=== PATIENT | male | born 1960 | race Caucasian/White ===

== ENCOUNTER 2022-11-15 13:51 | Inpatient (IN) | payer MEDICAID, SELFPAY ==
[2022-11-15 13:59] VITALS: BP 125/107; PULSE 106; RESP 18; TEMP 36.6; O2SAT 94; BMI 23.8
--- NOTE | 2022-11-15 14:07 | W.ED.PSYCHS ---
Documented by User: TRELL Girard 11/15/22 16:41 HPI - Psych General: Chief Complaint: Psychiatric Symptoms Stated Complaint: MHE eval Time Seen by Provider: 11/15/22 13:53 Source: patient Mode of arrival: other (police) Limitations: no limitations and other (intoxicated) History of Present Illness: Patient is a 62-year-old male who presents to ED today via chief data officer with a signed affidavit for evaluation of suicidal ideations. According to affidavit the [place] Police [employer] was dispatched to his residence on a complaint that a male subject was breaking things with a baseball bat and was suicidal. According to affidavit patient told the officer that he wanted to and wanted to kill himself and then asked to the officer if he would kill the patient if he hit him with a baseball bat. The patient then proceeded to hit the doorway with a bat several times in attempts to make the officer use lethal force. Patient upon arrival is clearly intoxicated. Patient states he has suffered from migraine headaches my entire life and states he has been on countless different medications all of which do not work for his headaches. He states he is tired of dealing with the pain and states either you give me pain meds for my headache or you can kill me-you can choose . complaint: suicidal ideation and feels depressed Duration: constant Relieving factors: none Exacerbating factors: alcohol Context: significant life stressor Associated psychiatric symptoms: depression and suicidal ideation Associated symptoms: Reports depression and suicidal ideation Treatments prior to arrival: other (affidavit) If self harm: admits thoughts of self harm Review of Systems Const: Denies: fever(s) or chills Card: Denies: chest pain, palpitations, lightheadedness or syncope Resp: Denies: dyspnea GI: Denies: abdominal pain, nausea, vomiting or diarrhea Skin/Breast: Denies: rash Neuro: Reports: headache(s); Denies: numbness in extremities, weakness in extremities, sensory changes or dizziness Psych: Reports: depression and suicidal ideation Physical Exam Const: COMMON NORMALS: no acute distress, patient oriented x3, alert and well nourished GENERAL APPEARANCE: cooperative and odor of alcohol detected ORIENTATION/CONSCIOUSNESS: Yes awake, Yes oriented to person, Yes oriented to place and Yes oriented to time HENMT: COMMON NORMALS: normocephalic and atraumatic HEAD & SCALP: normal to inspection, normocephalic and atraumatic Resp: COMMON NORMALS: normal respiratory effort and clear to auscultation bilaterally AUSCULTATION: clear to auscultation bilaterally Cardio: COMMON NORMALS: regular rhythm RATE: tachycardic RHYTHM: regular rhythm Neuro: JANY COMA SCALE: document GCS findings [place] coma scale eye opening: Spontaneous Jany coma scale verbal response: Orientated Jany coma scale motor response: Obey commands Jany coma scale total score: 15 COMMON NORMALS: patient oriented x3 SENSORIUM/ORIENTATION: Yes alert, Yes oriented to person, Yes oriented to place and Yes oriented to time Psych: COMMON NORMALS: mental status grossly normal, Normal thought process present, normal affect, activity/motor behavior normal, denies hallucinations and denies homicidal ideation APPEARANCE: Yes disheveled ATTITUDE: Yes agitated ACTIVITY/MOTOR BEHAVIOR: Yes appropriate eye contact and No psychomotor agitation SPEECH: Yes loud MOOD & AFFECT: Yes irritable THOUGHT PROCESS: Normal thought process present THOUGHT CONTENT: Yes Normal thought content present ATTENTION/CONCENTRATION: Yes attention grossly intact and Yes concentration grossly intact MEMORY/COGNITION: Yes memory grossly intact and Yes cognition grossly intact INSIGHT: Good insight present (Psych) JUDGEMENT: Good judgement present (Psych) Skin: COMMON NORMALS: no rashes or lesions noted GENERAL SKIN EXAM: no rashes or lesions noted Course ED course: Dr. Drummond will sign 96 hour hold based on chief data officer's affidavit. Vital Signs: Vital signs: Vital Signs Temperature 97.8 F 11/20/22 13:26 Pulse Rate 77 11/20/22 13:26 Respiratory Rate 16 11/21/22 11:32 Blood Pressure 117/78 11/20/22 13:26 Pulse Oximetry 99 11/20/22 13:26 Oxygen Delivery Me thod 11/19/22 13:56 MDM - Psych Medical Decision Making Care transferred to Dr. Drummond. Patient is on a 96-hour hold. We currently do not have any NPU beds. Lab Data 11/15/22 14:15 11/15/22 14:[address] 11/15/22 17:20 IMPRESSION: No acute intracranial abnormality. Laboratory Results WBC 8.7 10^3/uL (4.0-10.0) 11/15/22 14:15 RBC 5.34 10^6/uL (4.1-5.3) H 11/15/22 14:15 Hgb 16.1 g/dL (11.7-16.6) 11/15/22 14:15 Hct 47.6 % (42.0-52.0) 11/15/22 14:15 MCV 89.1 fl (80-94) 11/15/22 14:15 MCH 30.1 pg (28.0-34.0) 11/15/22 14:15 MCHC 33.8 g/dL (30.0-36.0) 11/15/22 14:15 RDW 13.1 % (12.1-15.1) 11/15/22 14:15 Plt Count 278 10^3/cmm (130-400) 11/15/22 14:15 MPV 10.2 fL (7.4-10.4) 11/15/22 14:15 Neut % (Auto) 57.5 % 11/15/22 14:15 Lymph % (Auto) 32.7 % 11/15/22 14:15 [place] % (Auto) 7.1 % 11/15/22 14:15 Eos % (Auto) 1.7 % 11/15/22 14:15 Baso % (Auto) 0.8 % 11/15/22 14:15 Neut # (Auto) 4.98 10^3/uL (1.8-7.7) 11/15/22 14:15 Lymph # (Auto) 2.8 10^3/uL (0.8-4.8) 11/15/22 14:15 [place] # (Auto) 0.6 10^3/uL (0.2-0.9) 11/15/22 14:15 Eos # (Auto) 0.2 10^3/uL (0.0-0.8) 11/15/22 14:15 Baso # (Auto) 0.1 10^3/uL (0.0-0.1) 11/15/22 14:15 Nucleated RBC % (auto) 0 % 11/15/22 14:15 Nucleated RBCs # 0.0 /100WBC 11/15/22 14:15 Sodium 137 mmol/L (136-145) 11/15/22 14:15 Potassium 3.5 mmol/L (3.5-5.1) 11/15/22 14:15 Chloride 101 mmol/L (98-107) 11/15/22 14:15 Carbon Dioxide 22 mmol/L (22-29) 11/15/22 14:15 Anion Gap 17.5 (5-19) 11/15/22 14:15 BUN 10 mg/dL (8-23) 11/15/22 14:15 Creatinine 0.6 mg/dL (0.7-1.2) L 11/15/22 14:15 GFR Calculation 137.4 mL/min (90-130) H 11/15/22 14:15 Glucose 124 mg/dL (65-115) H 11/15/22 14:15 Calculated Osmolality 284 mOsm/kg (285-295) L 11/15/22 14:15 Calcium 9.1 mg/dL (8.5-10.5) 11/15/22 14:15 Total Bilirubin 0.2 mg/dL (0.15-1.2) 11/15/22 14:15 AST 16 U/L (0-40) 11/15/22 14:15 ALT 15 U/L (0-41) 11/15/22 14:15 Alkaline Phosphatase 80 U/L (40-130) 11/15/22 14:15 Total Protein 7.3 g/dL (6.6-8.7) 11/15/22 14:15 Albumin 4.4 g/dL (3.5-5.2) 11/15/22 14:15 Globulin 2.9 g/dL (1.3-4.6) 11/15/22 14:15 Salicylates 1.7 mg/dL (3-10) L 11/15/22 14:15 Urine Opiates Screen Negative ng/mL (Negative) 11/15/22 14:50 Acetaminophen < 5.0 ug/mL (10-30) L 11/15/22 14:15 Ur Barbiturates Screen Negative ng/mL (Negative) 11/15/22 14:50 Ur Phencyclidine Scrn Negative ng/mL (Negative) 11/15/22 14:50 Ur Amphetamines Screen Positive ng/mL (Negative) H 11/15/22 14:50 U Benzodiazepines Scrn Negative ng/mL (Negative) 11/15/22 14:50 Urine Cocaine Screen Negative ng/mL (Negative) 11/15/22 14:50 U Marijuana (THC) Screen Positive ng/mL (Negative) H 11/15/22 14:50 Ethyl Alcohol 99 mg/dL (0-10) H 11/15/22 14:15 Discharge Plan Discharge Patient Disposition: Admitted As Inpatient Admit Provider: Jimmy Lee Clinical Impression: Acute psychosis, Suicidal ideation, Polysubstance abuse Condition: Stable Discharge Diet: Advance as tolerated Discharge Activity: Resume usual activity Sign Out Sign Out Data: Patient Sign Out occurred on 11/15/22 at 17:08. Patient's care was discussed, and care was transferred from to Jm Drummond MD. Coding Level of Care Code ED Director Sales for Chg Fwd Documented by User: Jm Drummond MD 11/27/22 01:58 HPI - Psych General: Chief Complaint: Psychiatric Symptoms Stated Complaint: MHE eval Time Seen by Provider: 11/15/22 13:53 Physical Exam Neuro: JANY COMA SCALE: document GCS findings Jany coma scale total score: 15 Course Vital Signs: Vital signs: Vital Signs Temperature 97.8 F 11/20/22 13:26 Pulse Rate 77 11/20/22 13:26 Respiratory Rate 16 11/21/22 11:32 Blood Pressure 117/78 11/20/22 13:26 Pulse Oximetry 99 11/20/22 13:26 Oxygen Delivery Me thod 11/19/22 13:56 MDM - Psych Medical Decision Making Care transferred to Dr. Drummond. Patient is on a 96-hour hold. We currently do not have any NPU beds. I discussed this case with TRELL Girard. I personally saw and evaluate the patient and agree with documentation. I reviewed documentation, labs. Patient requires inpatient admission for psychiatric assessment, stabilization, treatment. Jm Drummond MD Emergency Medicine Lab Data 11/15/22 14:15 11/15/22 14:[address] 11/15/22 17:20 IMPRESSION: No acute intracranial abnormality. Laboratory Results WBC 8.7 10^3/uL (4.0-10.0) 11/15/22 14:15 RBC 5.34 10^6/uL (4.1-5.3) H 11/15/22 14:15 Hgb 16.1 g/dL (11.7-16.6) 11/15/22 14:15 Hct 47.6 % (42.0-52.0) 11/15/22 14:15 MCV 89.1 fl (80-94) 11/15/22 14:15 MCH 30.1 pg (28.0-34.0) 11/15/22 14:15 MCHC 33.8 g/dL (30.0-36.0) 11/15/22 14:15 RDW 13.1 % (12.1-15.1) 11/15/22 14:15 Plt Count 278 10^3/cmm (130-400) 11/15/22 14:15 MPV 10.2 fL (7.4-10.4) 11/15/22 14:15 Neut % (Auto) 57.5 % 11/15/22 14:15 Lymph % (Auto) 32.7 % 11/15/22 14:15 [place] % (Auto) 7.1 % 11/15/22 14:15 Eos % (Auto) 1.7 % 11/15/22 14:15 Baso % (Auto) 0.8 % 11/15/22 14:15 Neut # (Auto) 4.98 10^3/uL (1.8-7.7) 11/15/22 14:15 Lymph # (Auto) 2.8 10^3/uL (0.8-4.8) 11/15/22 14:15 [place] # (Auto) 0.6 10^3/uL (0.2-0.9) 11/15/22 14:15 Eos # (Auto) 0.2 10^3/uL (0.0-0.8) 11/15/22 14:15 Baso # (Auto) 0.1 10^3/uL (0.0-0.1) 11/15/22 14:15 Nucleated RBC % (auto) 0 % 11/15/22 14:15 Nucleated RBCs # 0.0 /100WBC 11/15/22 14:15 Sodium 137 mmol/L (136-145) 11/15/22 14:15 Potassium 3.5 mmol/L (3.5-5.1) 11/15/22 14:15 Chloride 101 mmol/L (98-107) 11/15/22 14:15 Carbon Dioxide 22 mmol/L (22-29) 11/15/22 14:15 Anion Gap 17.5 (5-19) 11/15/22 14:15 BUN 10 mg/dL (8-23) 11/15/22 14:15 Creatinine 0.6 mg/dL (0.7-1.2) L 11/15/22 14:15 GFR Calculation 137.4 mL/min (90-130) H 11/15/22 14:15 Glucose 124 mg/dL (65-115) H 11/15/22 14:15 Calculated Osmolality 284 mOsm/kg (285-295) L 11/15/22 14:15 Calcium 9.1 mg/dL (8.5-10.5) 11/15/22 14:15 Total Bilirubin 0.2 mg/dL (0.15-1.2) 11/15/22 14:15 AST 16 U/L (0-40) 11/15/22 14:15 ALT 15 U/L (0-41) 11/15/22 14:15 Alkaline Phosphatase 80 U/L (40-130) 11/15/22 14:15 Total Protein 7.3 g/dL (6.6-8.7) 11/15/22 14:15 Albumin 4.4 g/dL (3.5-5.2) 11/15/22 14:15 Globulin 2.9 g/dL (1.3-4.6) 11/15/22 14:15 Salicylates 1.7 mg/dL (3-10) L 11/15/22 14:15 Urine Opiates Screen Negative ng/mL (Negative) 11/15/22 14:50 Acetaminophen < 5.0 ug/mL (10-30) L 11/15/22 14:15 Ur Barbiturates Screen Negative ng/mL (Negative) 11/15/22 14:50 Ur Phencyclidine Scrn Negative ng/mL (Negative) 11/15/22 14:50 Ur Amphetamines Screen Positive ng/mL (Negative) H 11/15/22 14:50 U Benzodiazepines Scrn Negative ng/mL (Negative) 11/15/22 14:50 Urine Cocaine Screen Negative ng/mL (Negative) 11/15/22 14:50 U Marijuana (THC) Screen Positive ng/mL (Negative) H 11/15/22 14:50 Ethyl Alcohol 99 mg/dL (0-10) H 11/15/22 14:15 Discharge Plan Discharge Patient Disposition: Admitted As Inpatient Admit Provider: Jimmy Lee Clinical Impression: Acute psychosis, Suicidal ideation, Polysubstance abuse Condition: Stable Discharge Diet: Advance as tolerated Discharge Activity: Resume usual activity Sign Out Sign Out Data: Patient Sign Out occurred on 11/15/22 at 17:08. Patient's care was discussed, and care was transferred from to Jm Drummond MD. Coding Level of Care Code ED Director Sales for Marisela Mclaughlin
[2022-11-15] MEDS: diphenhydrAMINE 50 mg/mL SDV 1mL IM (14:25)
[2022-11-15] MEDS: LORazepam 2 mg/mL INJ 1 mL 1 MG IM (14:25)
[2022-11-15 14:31] LABS: Basophils # 0.1 10^3/uL (0.0-0.1); Basophils % 0.8 %; Eosinophils # 0.2 10^3/uL (0.0-0.8); Eosinophils % 1.7 %; Hematocrit 47.6 % (42.0-52.0); Hemoglobin 16.1 g/dL (11.7-16.6); Lymphocytes # 2.8 10^3/uL (0.8-4.8); Lymphocytes % 32.7 %; Mean Corpuscular HGB Conc 33.8 g/dL (30.0-36.0); Mean Corpuscular Hemoglobin 30.1 pg (28.0-34.0); Mean Corpuscular Volume 89.1 fl (80-94); Mean Platelet Volume 10.2 fL (7.4-10.4); Monocytes # 0.6 10^3/uL (0.2-0.9); Monocytes % 7.1 %; Neutrophils # 4.98 10^3/uL (1.8-7.7); Neutrophils % 57.5 %; Nucleated Red Blood Cells % 0 %; Platelet Count 278 10^3/cmm (130-400); Red Blood Count 5.34 10^6/uL (4.1-5.3); Red Cell Distribution Width 13.1 % (12.1-15.1); White Blood Count 8.7 10^3/uL (4.0-10.0)
[2022-11-15 14:57] LABS: Alanine Aminotransferase 15 U/L (0-41); Albumin Level 4.4 g/dL (3.5-5.2); Alcohol Level 99 mg/dL (0-10); Alkaline Phosphatase 80 U/L (40-130); Anion Gap 17.5 (5-19); Aspartate Amino Transferase 16 U/L (0-40); Blood Urea Nitrogen 10 mg/dL (8-23); Calcium 9.1 mg/dL (8.5-10.5); Carbon Dioxide 22 mmol/L (22-29); Chloride 101 mmol/L (98-107); Globulin 2.9 g/dL (1.3-4.6); Glomerular Filtration Rate 137.4 mL/min (90-130); Glucose 124 mg/dL (65-115); Osmolality Calculated 284 mOsm/kg (285-295); Potassium 3.5 mmol/L (3.5-5.1); Salicylate 1.7 mg/dL (3-10); Sodium 137 mmol/L (136-145); Total Bilirubin 0.2 mg/dL (0.15-1.2); Total Protein 7.3 g/dL (6.6-8.7)
[2022-11-15 15:00] LABS: Acetaminophen < 5.0 ug/mL (10-30)
[2022-11-15 15:16] LABS: Amphetamines Screen Urine Positive (Negative); Barbiturates Screen Urine Negative (Negative); Benzodiazepines Screen Urine Negative (Negative); Cocaine Screen Urine Negative (Negative); Opiate Screen Urine Negative (Negative); PCP Screen Urine Negative (Negative); THC Screen Urine Positive (Negative)
--- NOTE | 2022-11-15 17:20 | CTR_ITS ---
PROCEDURE INFORMATION: Exam: CT Head Without Contrast Exam date and time: 11/15/2022 6:27 PM Age: 62 years old Clinical indication: Pain; Headache; Other: [place]; Additional info: R sided headache TECHNIQUE: Imaging protocol: Computed tomography of the head without contrast. Radiation optimization: All CT scans at this facility use at least one of these dose optimization techniques: automated exposure control; mA and/or kV adjustment per patient size (includes targeted exams where dose is matched to clinical indication); or iterative reconstruction. Other protocol: This patient has received 0 known CTs and 0 known cardiac nuclear medicine studies in the 12 months prior to the current study. COMPARISON: No relevant prior studies available. RADIATION DOSE METRICS: Total DLP (mGy-cm): 1169.48 FINDINGS: Brain: Normal. No hemorrhage. Unremarkable white matter. No mass effect. Cerebral ventricles: No ventriculomegaly. Paranasal sinuses: Visualized sinuses are unremarkable. No fluid levels. Mastoid air cells: Visualized mastoid air cells are well aerated. Bones/joints: Unremarkable. No acute fracture. Soft tissues: Unremarkable. CT/CT head wo con* 22111 IMPRESSION: No acute intracranial abnormality.
--- NOTE | 2022-11-15 18:01 | PC.NURSE ---
ATTEMPTED TO ADM IM INJECTION AND PO MEDICATION PT IS RESTING QUIETLY ON ON RIGHT SIDE WITH GOOD CHEST RISE AND FALL. WILL ATTEMPT TO GIVE MEDICATION LATER.
--- NOTE | 2022-11-15 19:04 | PC.NURSE ---
REPORT GIVEN TO RN ASSUMED CARE.
[2022-11-15 19:14] VITALS: PULSE 84; RESP 20; O2SAT 96
--- NOTE | 2022-11-15 19:26 | PC.NURSE ---
Resting with eyes closed, respirations even and nonlabored
[2022-11-15] MEDS: acetaminophen 325 mg Tablet 650 MG PO (20:25)
[2022-11-15] MEDS: ketorolac 30 mg/mL INJ IM (20:26)
--- NOTE | 2022-11-15 20:36 | PC.NURSE ---
Awake, sitting up on side of bed, meds were given for headache. Denies other needs at this time
[2022-11-15 21:28] VITALS: BP 165/93; PULSE 90; RESP 18; O2SAT 97
[2022-11-15 22:00] VITALS: BP 179/107; PULSE 96; RESP 18; TEMP 36.8; O2SAT 95
[2022-11-15 22:12] VITALS: RESP 18
[2022-11-15] MEDS: cloNIDine 0.1 mg Tablet PO (22:41)
[2022-11-16] MEDS: LORazepam 2 mg Tablet PO (04:32)
[2022-11-16] MEDS: acetaminophen 325 mg Tablet 650 MG PO ×2 (04:46→16:50)
[2022-11-16 06:00] VITALS: BP 171/107; PULSE 93; RESP 18; TEMP 37; O2SAT 96
[2022-11-16 06:27] VITALS: BP 122/91
[2022-11-16] MEDS: multivitamin therapeutic Tablet 1 TAB PO (09:41)
[2022-11-16] MEDS: thiamine 100 mg Tablet PO (09:41)
[2022-11-16] MEDS: folic acid 1 mg Tablet PO (09:41)
[2022-11-16] MEDS: ibuprofen 600 mg Tablet PO ×3 (09:48→20:57)
[2022-11-16] MEDS: nicotine 21 mg Patch 1 PATCH TRANSDERMA (09:49)
--- NOTE | 2022-11-16 13:20 | P.NPUHP_ITS ---
Providers/Chief Complaint Admitting Physician: Jimmy Lee MD Chief Complaint: MHE eval [facility] NPU History of Present Illness Amado Lawson is a 62 year old male who presented to the emergency department with the following report: General: Chief Complaint: Psychiatric Symptoms Stated Complaint: GOLDENE evluana Time Seen by Provider: 11/15/22 13:53 Source: patient Mode of arrival: other (police) Limitations: no limitations and other (intoxicated) History of Present Illness: Patient is a 62-year-old male who presents to ED today via community relations police lieutenant with a signed affidavit for evaluation of suicidal ideations. According to affidavit the [place] [employer] was dispatched to his residence on a complaint that a male subject was breaking things with a baseball bat and was suicidal. According to affidavit patient told the officer that he wanted to and wanted to kill himself and then asked to the officer if he would kill the patient if he hit him with a baseball bat. The patient then proceeded to hit the doorway with a bat several times in attempts to make the officer use lethal force. Patient upon arrival is clearly intoxicated. Patient states he has suffered from migraine headaches my entire life and states he has been on countless different medications all of which do not work for his headaches. He states he is tired of dealing with the pain and states either you give me pain meds for my headache or you can kill me-you can choose . complaint: suicidal ideation and feels depressed Duration: constant Relieving factors: none Exacerbating factors: alcohol Context: significant life stressor Associated psychiatric symptoms: depression and suicidal ideation Associated symptoms: Reports depression and suicidal ideation Treatments prior to arrival: other (affidavit) If self harm: admits thoughts of self harm He was admitted to the neuropsychiatric unit for definitive treatment of those issues. He is not currently on psychiatric medications. He presents reporting t black after begging for help with a migraine and saying that he wants to be knocked out. He has never been psychiatrically hospitalized, has been to [facility] for outpatient services, and has been on Xanax in the past. He endorses a pack of tobacco a day, alcohol daily since last July, mairjuana 10 days a month, meth once a month. He denies drug and alcohol treatment, denies DUIs, and has had 11 months on a 7 year possession charge after his got into his pocket. He endorses having been sober since 1985 until he was bitten by a brown recluse and now started drinking because of the pain. He endorses having had a migraine his whole life and that the right side of his head has never been pain-free. He reports he was begging for help and saying that he wanted them to knock him out and kill the pain now. UDS was positive for amphetamines. Psychiatric History: As above. Substance Abuse History: As above Legal History: 11 months on a 7 year possession charge. Medical History: He denies any known allergies. Bitten by a brown recluse spider in July last year. Reports migraines his entire life. Meds NPU Home Medications Medication Instructions Recorded Confirmed Last Taken Type amitriptyline 10 mg tablet 10 mg PO BEDTIME 11/15/22 11/15/22 11/14/22 History gabapentin 300 mg capsule 300 mg PO TID 11/15/22 11/15/22 11/14/22 History lisinopril 20 mg tablet 20 mg PO DAILY 11/15/22 11/15/22 11/14/22 History omeprazole 40 mg capsule,delayed 40 mg PO DAILY 11/15/22 11/15/22 11/14/22 History release Allergies Allergy/AdvReac Type Severity Reaction Status Date / Time diphenhydramine Allergy Unknown Unknown Verified 11/15/22 14:56 [From Benadryl] menthol Allergy Unknown Unknown Verified 11/15/22 14:56 Mental Status Exam MSE Comments: This is a slender, older white male, appearing older than stated age with limited grooming and adequate eye contact. No abnormal movements except for mild psychomotor retardation and some tremulousness. Cooperative with exam a nd mild distress. Thought process organized. Thought content: patient denies suicidal or homicidal ideation. Attention and concentration are intact and memory appeared reliable but none were formally tested. He is alert and oriented three times. Insight and judgment are limited. Impulse control is limited. Vitals/I&O/Wt Last Vital Signs Temp 98.4 F 11/16/22 14:00 Pulse 86 11/16/22 14:00 Resp 18 11/16/22 14:00 BP 167/107 11/16/22 14:00 Pulse Ox 96 11/16/22 14:00 O2 Del Method 11/16/22 14:00 Weight last 48 hrs Weight 68.946 kg Data NPU 11/15/22 14:15 11/15/22 14:15 A&P Assessment and plan (1) Acute psychosis: (2) Suicidal ideation: (3) Polysubstance abuse: (4) Methamphetamine use disorder, severe: Plan This is a 61 year old white male with a history of migraines and a recent report a spi bite with ongoing spider bite symptoms a long history of addiction who presents with a severe migraine reporting that he needs help for the severe pain with UDS positive for amphetamines. 1. Continue current medications 2. Encourage individual, group and milieu therapy 3. Continue q-15 minute check for safety 4. Recommend sober living treatment at the highest level of care to which the patient is willing to commit. 5. Significant concern that much of his drug use. Involuntary Hold Information 96 Hour Hold: 96 Hour Involuntary Admission: Yes 96 Hour Hold Ending Date: 11/21/22 96 Hour Hold Ending Time: 14:10 Attestations NPU Medical Necessity Statement*: Inpatient hospitalization is medically necessary and the clinically appropriate intervention at this time. We will monitor medications and make changes as indicated. Patient will be in the hospital for over two midnights. Likely length of stay is three to five days. Coding Level of Care Code Acute Code for [facility] Fwd Diagnoses Acute psychosis F23 Suicidal ideation R45.851 Polysubstance abuse F19.10 Methamphetamine use disorder, severe F15.20
[2022-11-16 14:00] VITALS: BP 167/107; PULSE 86; RESP 18; TEMP 36.9; O2SAT 96
[2022-11-16] MEDS: gabapentin 300 mg Capsule PO (20:57)
[2022-11-16 21:25] VITALS: BP 171/100
[2022-11-16] MEDS: cloNIDine 0.1 mg Tablet PO (21:25)
[2022-11-16 21:30] VITALS: BP 171/100; PULSE 90; RESP 16; TEMP 37; O2SAT 97
[2022-11-16] MEDS: amitriptyline 25 mg Tablet PO (21:58)
[2022-11-17 08:55] VITALS: BP 148/110; PULSE 94
[2022-11-17] MEDS: multivitamin therapeutic Tablet 1 TAB PO (08:56)
[2022-11-17] MEDS: lisinopril 20 mg Tablet PO (08:56)
[2022-11-17] MEDS: folic acid 1 mg Tablet PO (08:56)
[2022-11-17] MEDS: pantoprazole DR 40 mg Tablet PO (08:56)
[2022-11-17] MEDS: gabapentin 300 mg Capsule PO ×3 (08:56→20:40)
[2022-11-17] MEDS: thiamine 100 mg Tablet PO (08:56)
[2022-11-17] MEDS: nicotine 21 mg Patch 1 PATCH TRANSDERMA (08:57)
[2022-11-17] MEDS: acetaminophen 325 mg Tablet 650 MG PO (11:09)
[2022-11-17 14:00] VITALS: BP 148/93; PULSE 77; RESP 18; TEMP 36.6; O2SAT 97
--- NOTE | 2022-11-17 15:44 | P.NPUPN_ITS ---
Subjective NPU Subjective: Patient presented today reporting that he feels that he is better and that he needs to get home to take care of his . We discussed that he needs to focus on himself before he can be helpful to his . Continue to deny any desire or need for any additional medications. He also reported need for his drinking very much downplaying the role of methamphetamines in his difficulties. He agreed to work with the treatment team to make sure he had appropriate discharge plans. Mental Status Exam MSE Comments: This is a slender, older white male, appearing older than stated age with limited grooming and adequate eye contact. No abnormal movements except for mild psychomotor retardation and some tremulousness. Cooperative with exam in mild distress. Speech decreased rate and volume. Mood is described as okay, affect congruent. Thought process organized. Thought content: patient denies s uicidal or homicidal ideation. Attention and concentration are intact and memory appeared reliable but none were formally tested. He is alert and oriented three times. Insight and judgment are limited. Impulse control is limited. Vitals/I&O/Wt Last Vital Signs Temp 98 F 11/17/22 14:00 Pulse 77 11/17/22 14:00 Resp 18 11/17/22 14:00 BP 148/93 11/17/22 14:00 Pulse Ox 97 11/17/22 14:00 O2 Del Method 11/17/22 14:00 Data NPU 11/15/22 14:15 11/15/22 14:15 A&P Assessment and plan (1) Acute psychosis: (2) Suicidal ideation: (3) Polysubstance abuse: (4) Methamphetamine use disorder, severe: Plan This is a 61 year old white male with a history of migraines and a recent report a spi bite with ongoing spider bite symptoms a long history of addiction who presents with a severe migraine reporting that he needs help for the severe pain with UDS positive for amphetamines. 1. Continue current medications 2. Encourage individual, group and milieu therapy 3. Continue q-15 minute check for safety 4. Recommend sober living treatment at the highest level of care to which the patient is willing to commit. 5. Significant concern that much of this is related to his drug use. Continue [facility] protocol. Involuntary Hold Information 96 Hour Hold: 96 Hour Involuntary Admission: Yes 96 Hour Hold Ending Date: 02/14/23 96 Hour Hold Ending Time: 14:10 Attestations NPU Medical Necessity Statement*: Inpatient hospitalization is medically necessary and the clinically appropriate intervention at this time. We will monitor medications and make changes as indicated. Likely length of stay is three to five days. Coding Level of Care Code Acute Code for [facility] Fwd Diagnoses Acute psychosis F23 Suicidal ideation R45.851 Polysubstance abuse F19.10 Methamphetamine use disorder, severe F15.20
[2022-11-17] MEDS: amitriptyline 25 mg Tablet PO (20:40)
[2022-11-18] MEDS: acetaminophen 325 mg Tablet 650 MG PO ×2 (04:21→16:22)
[2022-11-18 06:00] VITALS: BP 164/107; PULSE 83; RESP 14; TEMP 36.6; O2SAT 97
[2022-11-18 06:25] VITALS: BP 164/107
[2022-11-18] MEDS: cloNIDine 0.1 mg Tablet PO (06:25)
--- NOTE | 2022-11-18 06:31 | PC.NURSE ---
PRN MED PT GIVEN 0.1 MG OF CLONIDINE FOR B/P OF 164/107, WILL CONTINUE TO MONITOR.
[2022-11-18] MEDS: multivitamin therapeutic Tablet 1 TAB PO (08:14)
[2022-11-18] MEDS: gabapentin 300 mg Capsule PO ×3 (08:14→20:08)
[2022-11-18] MEDS: lisinopril 20 mg Tablet PO (08:14)
[2022-11-18] MEDS: thiamine 100 mg Tablet PO (08:14)
[2022-11-18] MEDS: pantoprazole DR 40 mg Tablet PO (08:14)
[2022-11-18] MEDS: folic acid 1 mg Tablet PO (08:14)
[2022-11-18 08:22] VITALS: BP 162/115; PULSE 91
[2022-11-18] MEDS: LORazepam 2 mg Tablet PO (08:29)
--- NOTE | 2022-11-18 08:58 | PC.NURSE ---
PATIENT VERY ANXIOUS AND CONCERN ABOUT THE CARE OF HIS . BP- 162/115 HANDS MOIST AND SLIGHT TREMORS NOTED. C/O HEADACHE; RATES 10/10. DENIES N/V AND VERTIGO. PRN AVTIVAN GIVEN ORDERED.
[2022-11-18] MEDS: ibuprofen 600 mg Tablet PO (10:42)
[2022-11-18 14:00] VITALS: BP 127/78; PULSE 90; RESP 18; TEMP 36.4; O2SAT 96
--- NOTE | 2022-11-18 18:27 | W.PM.NPUPNS ---
Subjective NPU Subjective: Patient presented today with doing okay. He reports that his has not even called to check on him agreed that maybe she needed a break and understood that he needed to work on himself. He continued to be resistant to really identifying the impact that methamphetamine might be having and how it might even have impacted some aspects of the spider bite. We discussed the fact that Dr. Sanchez would be coming tomorrow and making decisions about discharge, likely discharge would be on Sunday or Sunday and appropriate follow-up is secured. Mental Status Exam MSE Comments: This is a slender, older white male, appearing older than stated age with limited grooming and adequate eye contact. No abnormal movements except for mild psychomotor retardation and resolving tremulousness. Cooperative with exam in mild distress. Speech normal rate and volume. Mood is described as a little better, affect congruent. Thought process organized. Thought content: patient denies suicidal or homicidal ideation. Attention and concentration are intact and memory appeared reliable but none were formally tested. He is alert and oriented three times. Insight and judgment are limited. Impulse control is limited. Vitals/I&O/Wt Last Vital Signs Temp 97.9 F 11/18/22 20:57 Pulse 85 11/18/22 20:57 Resp 18 11/18/22 20:57 BP 141/83 11/18/22 20:57 Pulse Ox 96 11/18/22 20:57 O2 Del Method 11/18/22 20:57 Weight last 48 hrs Weight 73.085 kg Weight 73.085 kg Data NPU 11/15/22 14:15 11/15/22 14:15 A&P Assessment and plan (1) Acute psychosis: (2) Suicidal ideation: (3) Polysubstance abuse: (4) Methamphetamine use disorder, severe: Plan This is a 61 year old white male with a history of migraines and a recent report a spi bite with ongoing spider bite symptoms a long history of addiction who presents with a severe migraine reporting that he needs help for the severe pain with UDS positive for amphetamines. 1. Continue current medications 2. Encourage individual, group and milieu therapy 3. Continue q-15 minute check for safety 4. Recommend sober living treatment at the highest level of care to which the patient is willing to commit. 5. Significant concern that much of this is related to his drug use. Continue CIWA protocol. Involuntary Hold Information 96 Hour Hold: 96 Hour Involuntary Admission: Yes 96 Hour Hold Ending Date: 11/21/22 96 Hour Hold Ending Time: 14:10 Attestations NPU Medical Necessity Statement*: Inpatient hospitalization is medically necessary and the clinically appropriate intervention at this time. We will monitor medications and make changes as indicated. Likely length of stay is 2-4 days. Coding Level of Care Code Acute Code for [facility] Fwd Diagnoses Acute psychosis F23 Suicidal ideation R45.851 Polysubstance abuse F19.10 Methamphetamine use disorder, severe F15.20
[2022-11-18] MEDS: hyDROXYzine 25 mg Capsule 50 MG PO (20:08)
[2022-11-18] MEDS: amitriptyline 25 mg Tablet PO (20:08)
--- NOTE | 2022-11-18 20:56 | PC.NURSE ---
PT REQUESTED MEDICATION TO ASSIST IN REDUCING ANXIETY. VISTARIL WAS GIVEN ORDERED. SEE MAR FOR DETAILS.
[2022-11-18 20:57] VITALS: BP 141/83; PULSE 85; RESP 18; TEMP 36.6; O2SAT 96
[2022-11-19 04:49] VITALS: BMI 25.2
[2022-11-19] MEDS: acetaminophen 325 mg Tablet 650 MG PO ×2 (07:00→15:28)
[2022-11-19 07:17] VITALS: BP 159/97; PULSE 80; RESP 18; TEMP 37.1; O2SAT 95
[2022-11-19] MEDS: pantoprazole DR 40 mg Tablet PO (09:15)
[2022-11-19] MEDS: thiamine 100 mg Tablet PO (09:15)
[2022-11-19] MEDS: gabapentin 300 mg Capsule PO ×3 (09:15→20:46)
[2022-11-19] MEDS: folic acid 1 mg Tablet PO (09:15)
[2022-11-19] MEDS: lisinopril 20 mg Tablet PO (09:15)
[2022-11-19] MEDS: ibuprofen 600 mg Tablet PO (09:15)
[2022-11-19] MEDS: multivitamin therapeutic Tablet 1 TAB PO (09:15)
[2022-11-19] MEDS: nicotine 21 mg Patch 1 PATCH TRANSDERMA (09:42)
[2022-11-19 13:56] VITALS: BP 175/82; PULSE 82; RESP 17; TEMP 36.6; O2SAT 99
--- NOTE | 2022-11-19 15:42 | W.PM.NPUPNS ---
Subjective NPU Subjective: Patient is a 62-year-old white male admitted with suicidal ideation with a history of polysubstance abuse including methamphetamine use and alcohol use. He reports that he is no longer feeling suicidal. He states that he had been using alcohol to manage his pain after he had been bitten by a recluse spider a few weeks ago. He reports that he does not feel that he has a problem with alcohol. He had reported no feelings of hopelessness. He states that he had suffered from migraine headaches for most of his life and states that he was not having any alcohol related withdrawal. He reports having good support from his regarding his current mental health related issues. Mental Status Exam MSE Comments: This is a slender, older white male, appearing older than stated age with adequate grooming and adequate eye contact. No abnormal movements except for mild psychomotor retardation and resolving tremulousness. Cooperative with exam in mild distress. Speech is normal rate and volume. Mood is described good. His affect was mood congruent. Thought process organized. Thought content: patient denies suicidal or homicidal ideation. Attention and concentration are intact and memory appeared reliable but none were formally tested. He is alert and oriented three times. Insight and judgment are limited. Impulse control is limited. Vitals/I&O/Wt Last Vital Signs Temp 97.9 F 11/19/22 13:56 Pulse 82 11/19/22 13:56 Resp 17 11/19/22 13:56 BP 175/82 11/19/22 13:56 Pulse Ox 99 11/19/22 13:56 O2 Del Method 11/19/22 13:56 Weight last 48 hrs Weight 73.085 kg Weight 73.085 kg Data NPU 11/15/22 14:15 11/15/22 14:15 A&P Assessment and plan (1) Acute psychosis: (2) Suicidal ideation: (3) Polysubstance abuse: (4) Methamphetamine use disorder, severe: Plan This is a 61 year old white male with a history of migraines and a recent report a spi bite with ongoing spider bite symptoms a long history of addiction who presents with a severe migraine reporting that he needs help for the severe pain with UDS positive for amphetamines. 1. Continue current medications-including Amitryptiline 25mg at night. 2. Encourage individual, group and milieu therapy 3. Continue q-15 minute check for safety 4. Recommend sober living treatment at the highest level of care to which the patient is willing to commit. 5. Discontinue CIWA protocol. Involuntary Hold Information 96 Hour Hold: 96 Hour Involuntary Admission: Yes 96 Hour Hold Ending Date: 11/21/22 96 Hour Hold Ending Time: 14:10 Attestations NPU Medical Necessity Statement*: Inpatient hospitalization is medically necessary and the clinically appropriate intervention at this time. We will monitor medications and make changes as indicated. Likely length of stay is 2-4 days. Coding Level of Care Code Acute Code for g Fwd Diagnoses Acute psychosis F23 Suicidal ideation R45.851 Polysubstance abuse F19.10 Methamphetamine use disorder, severe F15.20
[2022-11-19] MEDS: hyDROXYzine 25 mg Capsule 50 MG PO (20:46)
[2022-11-19] MEDS: amitriptyline 25 mg Tablet PO (20:46)
[2022-11-19 22:00] VITALS: BP 173/111; PULSE 86; RESP 20; TEMP 36.7; O2SAT 98
--- NOTE | 2022-11-19 23:20 | PC.NURSE ---
PRN vistaril given for anxiety per pt request.
[2022-11-20 02:03] VITALS: BP 169/105
[2022-11-20] MEDS: cloNIDine 0.1 mg Tablet PO (02:03)
[2022-11-20] MEDS: acetaminophen 325 mg Tablet 650 MG PO ×3 (02:03→17:16)
[2022-11-20] MEDS: OLANZapine 5 mg ODT PO (02:06)
--- NOTE | 2022-11-20 02:07 | PC.NURSE ---
PRN medications PRN clonidine and zyprex given for high blood pressure and anxiety.
[2022-11-20 06:00] VITALS: BP 127/83; PULSE 82; RESP 17; TEMP 36.3; O2SAT 97
[2022-11-20] MEDS: lisinopril 20 mg Tablet PO (08:27)
[2022-11-20] MEDS: multivitamin therapeutic Tablet 1 TAB PO (08:27)
[2022-11-20] MEDS: folic acid 1 mg Tablet PO (08:27)
[2022-11-20] MEDS: pantoprazole DR 40 mg Tablet PO (08:27)
[2022-11-20] MEDS: gabapentin 300 mg Capsule PO ×3 (08:27→20:10)
[2022-11-20] MEDS: thiamine 100 mg Tablet PO (08:27)
[2022-11-20 13:26] VITALS: BP 117/78; PULSE 77; RESP 17; TEMP 36.6; O2SAT 99
--- NOTE | 2022-11-20 14:37 | P.NPUPN_ITS ---
Subjective NPU Subjective: Patient is a 62-year-old white male admitted with suicidal ideation with a history of polysubstance abuse including methamphetamine use and alcohol use. The patient had continue to minimize his alcohol use and methamphetamine use. He had reported that his depression had been getting better. He minimized any suicidal thoughts at this time. He reported having periods of low energy and reported having chronic headaches and pain related issues. He did not appear to show any evidence of alcohol withdrawal symptoms according to staff. He had reported improved sleep. Staff notes patient has been compliant on the unit and redirectable. Mental Status Exam MSE Comments: This is a slender, older white male, appearing older than stated age with adequate grooming and adequate eye contact. No abnormal movements except for mild psychomotor retardation. He was cooperative with exam in no ac jose francisco distress. Speech is normal rate and volume. Mood is described all right. His affect was mood incongruent and restricted. Thought process was linear and organized. Thought content: patient denies suicidal or homicidal ideation. Attention and concentration are intact and memory appeared reliable but none were formally tested. He is alert and oriented three times. Insight and judgment are limited. Impulse control is limited. Vitals/I&O/Wt Last Vital Signs Temp 97.8 F 11/20/22 13:26 Pulse 77 11/20/22 13:26 Resp 17 11/20/22 13:26 BP 117/78 11/20/22 13:26 Pulse Ox 99 11/20/22 13:26 O2 Del Method 11/19/22 13:56 Weight last 48 hrs Weight 73.085 kg Weight 73.085 kg Data NPU 11/15/22 14:15 11/15/22 14:15 A&P Assessment and plan (1) Acute psychosis: (2) Suicidal ideation: (3) Polysubstance abuse: (4) Methamphetamine use disorder, severe: Plan This is a 61 year old white male with a history of migraines and a recent report a spi bite with ongoing spider bite symptoms a long history of addiction who presents with a severe migraine reporting that he needs help for the severe pain with UDS positive for amphetamines. 1. Increased amitriptyline to 50 mg at night to target insomnia headaches and depression. 2. Encourage individual, group and milieu therapy 3. Continue q-15 minute check for safety 4. Recommend sober living treatment at the highest level of care to which the patient is willing to commit. Involuntary Hold Information 96 Hour Hold: 96 Hour Involuntary Admission: Yes 96 Hour Hold Ending Date: 11/21/22 96 Hour Hold Ending Time: 14:10 Attestations NPU Medical Necessity Statement*: Inpatient hospitalization is medically necessary and the clinically appropriate intervention at this time. We will monitor medications and make changes as indicated. Likely length of stay is 2-4 days. Coding Level of Care Code Acute Code for [facility] Fwd Diagnoses Acute psychosis F23 Suicidal ideation R45.851 Polysubstance abuse F19.10 Methamphetamine use disorder, severe F15.20
[2022-11-20] MEDS: amitriptyline 25 mg Tablet 50 MG PO (20:10)
[2022-11-21] MEDS: acetaminophen 325 mg Tablet 650 MG PO ×2 (03:34→07:42)
[2022-11-21 06:00] VITALS: RESP 16
[2022-11-21] MEDS: thiamine 100 mg Tablet PO (08:49)
[2022-11-21] MEDS: pantoprazole DR 40 mg Tablet PO (08:49)
[2022-11-21] MEDS: lisinopril 20 mg Tablet PO (08:49)
[2022-11-21] MEDS: multivitamin therapeutic Tablet 1 TAB PO (08:49)
[2022-11-21] MEDS: gabapentin 300 mg Capsule PO (08:49)
[2022-11-21] MEDS: folic acid 1 mg Tablet PO (08:49)
[2022-11-21] MEDS: nicotine 21 mg Patch 1 PATCH TRANSDERMA (08:51)
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
[2022-11-21 11:32] VITALS: RESP 16
--- NOTE | 2022-11-21 11:43 | PC.NURSE ---
discharge instructions discussed with patient. pt states understanding and compliance. pt left ambulating to the ready ride transportation [facility].
== END 2022-11-21 11:42 | disposition home or self-care (01) | DRG 885 ==
LOC: ER 21:02 → NP 21:16
PROVIDERS: Physician Assistant; Admitting Provider Psychiatry & Neurology Psychiatry; Emergency Provider Emergency Medicine; Visit Provider Psychiatry & Neurology Psychiatry
DX: F23 Brief psychotic disorder (principal); R45.851 Suicidal ideations; F15.20 Other stimulant dependence, uncomplicated; F10.120 Alcohol abuse with intoxication, uncomplicated; F32.A Depression, unspecified; G43.709 Chronic migraine without aura, not intractable, without status migrainosus
CPT/HCPCS: 70450; 80053; 80306; 80307; 85025; 90935; 96372; 97165; 99238; 99285; J1200; J1885; J2060

== ENCOUNTER 2023-01-17 18:35 | Emergency (ER) | payer MEDICAID, SELFPAY ==
[2023-01-17 18:37] VITALS: BP 127/90; PULSE 81; RESP 16; TEMP 36.8; O2SAT 95
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
--- NOTE | 2023-01-17 19:18 | W.ED.EXTPRO ---
HPI - Extremity Problem General: Chief complaint: Extremity Injury, Upper Stated complaint: ALCOHOL INTOXICATION Time Seen by Provider: 01/17/23 18:40 Source: patient Mode of arrival: EMS History of Present Illness: This patient was transported to our emergency department by EMS. He states he was try to get cigarettes and could not get cigarettes and then started hitting a fire extinguisher and has pain in his right hand. He admits to drinking alcohol today. He states that he drank since approximately noon today. He normally lives with his . He denies any other complaints at this time. MD Complaint: extremity pain Associated symptoms: Deny chest pain, fever(s) or rash Review of Systems Const: Denies: fever(s) or chills Eyes: Denies: change in vision ENMT: Denies: throat pain or odynophagia Card: Denies: chest pain, palpitations or irregular heart rhythm Resp: Denies: dyspnea, productive cough or non-productive cough GI: Denies: abdominal pain, nausea or vomiting : Denies: flank pain or difficulty urinating Musc: Reports: extremity pain; Denies: neck pain or back pain Skin/Breast: Denies: rash Neuro: Denies: headache(s), numbness in extremities or weakness in extremities Psych: Denies: suicidal ideation or homicidal ideation Physical Exam Narrative: EXAM NARRATIVE: The patient is quite loquacious. He makes good eye contact. He answers questions in a general goal-directed fashion but clearly somewhat inebriated. Const: COMMON NORMALS: no acute distress, average body habitus, patient oriented x3 and alert HENMT: COMMON NORMALS: normocephalic and atraumatic HEAD & SCALP: normocephalic and atraumatic FACE & SINUS: normal facial exam Eye: COMMON NORMALS: Equal, round and reactive pupils present, EOMs intact bilaterally and conjunctivae normal CONJUNCTIVA: Yes conjunctivae normal PUPIL: Yes Equal, round and reactive pupils present Neck/C-Spine: COMMON NORMALS: full ROM and no lymphadenopathy Chest: COMMONS NORMALS: normal inspection of the chest Resp: COMMON NORMALS: normal respiratory effort, No use of accessory muscles and clear to auscultation bilaterally AUSCULTATION: clear to auscultation bilaterally Cardio: COMMON NORMALS: regular rate, regular rhythm and Peripheral pulses 2+ throughout RATE: regular rate RHYTHM: regular rhythm PERIPHERAL PULSES: Peripheral pulses 2+ throughout GI: COMMON NORMALS: Normal to inspection, nondistended, normoactive bowel sounds present and Soft to palpation PALPATION: Yes Soft to palpation : COMMON NORMALS: Yes no CVA tenderness BLADDER/KIDNEY EXAM: Yes no CVA tenderness Back/Pelvis: COMMON NORMALS: no CVA tenderness, thoracic and lumbar spine normal to inspection and no thoracic nor lumbar tenderness Extremity: NARRATIVE EXTREMITY EXAM: He has a normal range of motion in all extremities. His right hand is notable for tenderness over the MCP region. There is several small superficial abrasions. No deformity. No erythema. Good capillary refill and neurovascular intact. Neuro: COMMON NORMALS: patient oriented x3, moves all extremities, no focal motor deficits and no sensory deficits noted SENSORIUM/ORIENTATION: Yes alert Psych: COMMON NORMALS: mental status grossly normal Skin: COMMON NORMALS: turgor normal GENERAL SKIN EXAM: turgor normal Course Reevaluation(s): Reevaluation #1: Patient is drinking fluids well. He made considerable amount of urine output. He remains alert and cooperative and interactive. No new or otherwise focal findings on repeat evaluation. I discussed current findings no evidence of fracture of the right hand. He voiced understanding and was appreciative of care. The patient appears to be quite functional and suitable to be discharged home with family. He will be transported by [employer] transportation service. I did discuss with him regarding his alcohol use and he acknowledged our discussion. Time: 20:25 Vital Signs: Vital signs: Vital Signs Temperature 98.3 F 01/17/23 18:37 Pulse Rate 81 01/17/23 18:37 Respiratory Rate 16 01/17/23 18:37 Blood Pressure 130/81 01/17/23 20:17 Pulse Oximetry 95 01/17/23 18:37 Oxygen Delivery Me thod Room Air 01/17/23 18:37 MDM - Extremity (Nontraumatic) Medical Decision Making This patient who apparently has been drinking on a regular basis recently presents to our emergency department because of concerns about right hand swelling and pain. He apparently struck a immovable object when he could not get cigarettes from a vending machine. His evaluation revealed some superficial abrasions to his right metacarpal region. There is no deformity or other concerning clinical findings. Radiographs are reassuring that there is no evidence of fracture. He had full function in the right upper extremity to include the involved hand. His clinical examination was otherwise remarkable only for evidence of alcohol use. Patient stable, drinking fluids well, no other focal findings and competent to be discharged with transportation to his home which she shares with his spouse. Lab Data I reviewed the patient's lab results. Radiology Impressions Hand X-Ray 01/17/23 19:16 IMPRESSION: No fracture or acute osseous abnormality. Discharge Plan Discharge Patient Disposition: Home Clinical Impression: Contusion of hand, right, Alcohol use disorder Condition: Stable Prescriptions: No Action lisinopril 20 mg tablet 20 mg PO DAILY omeprazole 40 mg capsule,delayed release(DR/EC) 40 mg PO DAILY gabapentin 300 mg capsule 300 mg PO TID amitriptyline 25 mg Tablet 50 mg PO BEDTIME 30 Days Qty: 60 1RF Discharge Orders: Discharge ED (Routine); Ordered 01/17/23 Ordered By: Gerard Bennett Discharge Diet: Usual diet Discharge Activity: Increase activity as tolerated Patient Instructions: Opioid Safety, Pain Management Activity Restrictions/Additional Instructions: As we discussed she does not have any evidence of a fracture to your right hand. There is bruising about the soft tissues which will respond to continued use, ice and Tylenol as needed for any discomfort. If you have persistent or worsening pain you are welcome to return for reevaluation. Do not drink alcohol as it impairs your decision-making capacity. Coding Level of Care Code ED Small Machine Bindery Operator for Marisela Mclaughlin
[2023-01-17 20:17] VITALS: BP 130/81
--- NOTE | 2023-01-24 11:05 | DCPLANNER ---
legal practice manager called patient due to no primary care physician - no answer at this time.
== END 2023-01-17 21:59 | disposition home or self-care (01) ==
PROVIDERS: Emergency Provider Emergency Medicine
DX: S60.221A Contusion of right hand, initial encounter (principal); F10.90 Alcohol use, unspecified, uncomplicated; W22.09XA Striking against other stationary object, initial encounter
CPT/HCPCS: 73130; 99283

== ENCOUNTER 2023-06-14 15:09 | Emergency (ER) | payer MEDICAID, SELFPAY ==
[2023-06-14] VITALS (9 sets, daily range): BP systolic 126–156; BP diastolic 80–98; PULSE 82–99; RESP 18–19; TEMP 36.8; O2SAT 93–98; BMI 25.3
--- NOTE | 2023-06-14 15:15 | ECG_ITS ---
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 Measurements Intervals [place] Rate: 100 P: 61 [place]: 169 QRS: 48 QRSD: 90 T: 90 QT: 367 QTc: 474 Interpretive Statements SINUS TACH[address]IA [address] DEVIATION AND MODERATE T-WAVE ABNORMALITY, CONSIDER ANTERIOR ISCHEMIA [-0.1+ mV T-WAVE IN V3/V4] No previous ECG available for comparison Electronically Signed On 06-14-2023 21:29:54 CDT by Berkley Nicolas M.D. [email or web address].[facility] [place] [facility].[employer]/store/Om/[id number]
--- NOTE | 2023-06-14 15:15 | XR_ITS ---
WS: [id number] Portable AP upright chest, 06/14/2023 Clinical Data: chest pain Comparison: Portable chest, 06/12/2013 Findings: No nodules, masses or effusions are seen. The heart is normal. The pulmonary vascularity is not increased. No pneumonia or pneumothorax is seen. Monitor leads are on the chest wall. Impression: Negative chest.
--- NOTE | 2023-06-14 15:17 | ED_ITS ---
Documented by User: Braden Waters DO 06/15/23 06:02 HPI - Chest Pain General: Chief Complaint: Chest Pain Stated Complaint: chest pain Time Seen by Provider: 06/14/23 15:15 Source: patient Mode of arrival: EMS History of Present Illness: 63-year-old male presents emergency room with complaints of chest discomfort and left shoulder pain. He states he had sudden onset while he was walking. Pat ient admits to having done methamphetamines yesterday he has significant choreatic leg movements. He also admits to drinking alcohol use and walking all day long. He has no known history of coronary artery disease. Does have history of hypertension he is on lisinopril. MD complaint: chest pain Onset (ago): hour(s) Timing of current episode: episodic Onset: during exertion Pain location: substernal Pain radiation: left shoulder Quality: tightness and aching Relieving factors: nothing Exacerbating factors: nothing Associated symptoms: Deny abdominal pain, diaphoresis, dyspnea, fever(s), leg edema, nausea, palpitations, sense of impending doom, syncope or vomiting Review of Systems Const: Denies: fever(s), chills or diaphoresis ENMT: Denies: throat pain, ear or mastoid pain, nasal discharge or nasal conge stion Card: Reports: chest pain; Denies: palpitations or syncope Resp: Denies: dyspnea GI: Denies: abdominal pain, nausea or vomiting : Denies: flank pain, dysuria, urinary frequency or urinary urgency Skin/Breast: Denies: rash or pruritus [facility] ED PFSH: Medical History Methamphetamine use disorder, severe Physical Exam Const: GENERAL APPEARANCE: cooperative and comfortable ORIENTATION/CONSCIOUSNESS: Yes awake, Yes oriented to person, Yes oriented to place and Yes oriented to time HENMT: COMMON NORMALS: normocephalic, atraumatic and hearing grossly normal bilaterally HEAD & SCALP: normocephalic and atraumatic Resp: COMMON NORMALS: normal respiratory effort, No retractions, No use of accessory muscles and clear to auscultation bilaterally AUSCULTATION: clear to auscultation bilaterally Cardio: COMMON NORMALS: regular rate, regular rhythm and No murmurs present (Cardio) RATE: regular rate RHYTHM: regular rhythm GI: COMMON NORMALS: Soft to palpation and No hepatosplenomegaly present AUSCULTATION: Yes normoactive bowel sounds PALPATION: Yes Soft to palpation, No Tenderness to palpation present (GI), No Guarding due to palpation present (GI) and Yes No hepatosplenomegaly present Extremity: COMMON NORMALS: normal to inspection, capillary refill normal, no clubbing, cyanosis or edema, no calf tenderness and no pedal edema Neuro: SENSORIUM/ORIENTATION: Yes oriented to person, Yes oriented to place and Yes oriented to time Skin: COMMON NORMALS: no rashes or lesions noted GENERAL SKIN EXAM: no rashes or lesions noted Course Vital Signs: Vital signs: Vital Signs Temperature 98.2 F 06/14/23 15:12 Pulse Rate 85 06/14/23 19:01 Respiratory Rate 19 H 06/14/23 17:00 Blood Pressure 150/88 06/14/23 18:30 Pulse Oximetry 94 06/14/23 19:01 Oxygen Delivery Me thod Room Air 06/14/23 18:30 MDM - Chest Pain Medical Decision Making Care signed out to Dr. Gonzales at change of shift. See final notes for diagnosis and disposition. Patient presents to the ER having chest pain that started this morning. And radiated to his back and left shoulder. Patient also admits to drinking alcohol and using methamphetamine frequently. Patient denies any symptoms at this time. Patient was worked up in the standard cardiac fashion with serial lab work EKGs and chest x-rays. All of which are essentially benign for acute changes. Patient's potassium was slightly low at 3.3. It is thought that this patient's chest pain is noncardiac in nature and patient will be discharged home to follow-up with his PCP within the next 7 days. Lab Data 06/14/23 15:29 06/14/23 15: Laboratory Results WBC 8.95 10^3/uL (3.29-11.43) 06/14/23 15: RBC 4.61 10^6/uL (3.85-5.65) 06/14/23 15: Hgb 13.90 g/dL (11.27-16.99) 06/14/23 15: Hct 41.2 % (37-53) 06/14/23 15: MCV 89.4 fl (82-101) 06/14/23 15:29 MCH 30.2 pg (27-33) 06/14/23 15: MCHC 33.7 g/dL (30-55) 06/14/23 15: RDW 13.1 % (12.1-15.1) 06/14/23 15: Plt Count 215 10^3/cmm (157-399) 06/14/23 15: MPV 10.4 fL (7.4-10.4) 06/14/23 15: Neut % (Auto) 66.8 % 06/14/23 15:29 Lymph % (Auto) 24.4 % 06/14/23 15:29 Crawford % (Auto) 7.6 % 06/14/23: Eos % (Auto) 0.6 % 06/14/23: Baso % (Auto) 0.4 % 06/14/23: Neut # (Auto) 5.98 10^3/uL (1.8-7.7) 06/14/23 15: Lymph # (Auto) 2.2 10^3/uL (0.8-4.8) 06/14/23:29 Crawford # (Auto) 0.7 10^3/uL (0.2-0.9) 06/14/23:29 Eos # (Auto) 0.1 10^3/uL (0.0-0.8) 06/14/23: Baso # (Auto) 0.0 10^3/uL (0.0-0.1) 06/14/23 15: Nucleated RBC % (auto) 0 % 06/14/23: Nucleated RBCs # 0.0 /100WBC 06/14/23 15: Sodium 139 mmol/L (136-145) 06/14/23 15:29 Potassium 3.3 mmol/L (3.5-5.1) L 06/14/23 15: Chloride 100 mmol/L (98-107) 06/14/23 15: Carbon Dioxide 25 mmol/L (22-29) 06/14/23 15:29 Anion Gap 17.3 (5-19) 06/14/23 15:29 BUN 24 mg/dL (8-23) H 06/14/23 15:29 Creatinine 0.9 mg/dL (0.7-1.2) 06/14/23 15:29 GFR Calculation 85.8 mL/min (90-130) L 06/14/23 15:29 Glucose 133 mg/dL (65-115) H 06/14/23 15:29 Calculated Osmolality 294 mOsm/kg (285-295) 06/14/23 15:29 Calcium 9.2 mg/dL (8.5-10.5) 06/14/23 15:29 Total Bilirubin 1.6 mg/dL (0.15-1.2) H 06/14/23 15:29 AST 36 U/L (0-40) 06/14/23 15:29 ALT 25 U/L (0-41) 06/14/23 15:29 Alkaline Phosphatase 101 U/L (40-130) 06/14/23 15:29 Troponin T Baseline 13 ng/L (0-15) 06/14/23 15:29 Troponin T 120 Minute 10.85 ng/L (0-15) 06/14/23 17:22 Delta Troponin T -2.15 ABS# (0-10) L 06/14/23 17:22 Total Protein 7.4 g/dL (6.6-8.7) 06/14/23 15:29 Albumin 4.7 g/dL (3.5-5.2) 06/14/23 15:29 Globulin 2.7 g/dL (1.3-4.6) 06/14/23 15:29 Discharge Plan Discharge Patient Disposition: Home Clinical Impression: Atypical chest pain, Methamphetamine use disorder, severe Condition: Stable Prescriptions: No Action amitriptyline 50 mg tablet 50 mg PO BEDTIME amlodipine 10 mg tablet 10 mg PO DAILY ibuprofen 200 mg Tablet 200 mg PO Q6H PRN (Reason: Pain) Excedrin Migraine 250-250-65 mg Tablet 1 tab PO Q6H PRN (Reason: Headache) Multi-Vitamins Tablet 1 tab PO DAILY gabapentin 300 mg capsule 300 mg PO TID Discharge Orders: Discharge ED (Routine); Ordered 06/14/23 Ordered By: Yaniv Gonzales Patient Instructions: Chest Pain - Noncardiac, Methamphetamine Abuse Activity Restrictions/Additional Instructions: Please stop using methamphetamines. Please follow-up with your family practice doctor within the next week for further evaluation and treatment. If your chest pain returns and/or worsens please feel free to return to the ER for further evaluation. Coding Level of Care Code ED Locomotive Supervisor for Chg Fwd Documented by User: Yaniv Gonzales DO 06/14/23 18:42 HPI - Chest Pain General: Chief Complaint: Chest Pain Stated Complaint: chest pain Time Seen by Provider: 06/14/23 15:15 PFSH ED PFSH: Medical History Methamphetamine use disorder, severe Course Vital Signs: Vital signs: Vital Signs Temperature 98.2 F 06/14/23 15:12 Pulse Rate 85 06/14/23 19:01 Respiratory Rate 19 H 06/14/23 17:00 Blood Pressure 150/88 06/14/23 18:30 Pulse Oximetry 94 06/14/23 19:01 Oxygen Delivery Me thod Room Air 06/14/23 18:30 MDM - Chest Pain Medical Decision Making Patient presents to the ER having chest pain that started this morning. And radiated to his back and left shoulder. Patient also admits to drinking alcohol and using methamphetamine frequently. Patient denies any symptoms at this time. Patient was worked up in the standard cardiac fashion with serial lab work EKGs and chest x-rays. All of which are essentially benign for acute changes. Patient's potassium was slightly low at 3.3. It is thought that this patient's chest pain is noncardiac in nature and patient will be discharged home to follow-up with his PCP within the next 7 days. Differential Diagnosis Unlikely acute massive pulmonary embolism, acute respiratory failure, acute myocardial infarction, cardiac arrest or sudden cardiac Medical Records I reviewed the patient's medical records. Lab Data I reviewed the patient's lab results. 06/14/23 15:29 06/14/23 15:29 Laboratory Results WBC 8.95 10^3/uL (3.29-11.43) 06/14/23 15:29 RBC 4.61 10^6/uL (3.85-5.65) 06/14/23 15: Hgb 13.90 g/dL (11.27-16.99) 06/14/23 15:29 Hct 41.2 % (37-53) 06/14/23 15: MCV 89.4 fl (82-101) 06/14/23 15: MCH 30.2 pg (27-33) 06/14/23 15: MCHC 33.7 g/dL (30-55) 06/14/23 15: RDW 13.1 % (12.1-15.1) 06/14/23 15: Plt Count 215 10^3/cmm (157-399) 06/14/23: MPV 10.4 fL (7.4-10.4) 06/14/23: Neut % (Auto) 66.8 % 06/14/23: Lymph % (Auto) 24.4 % 06/14/23: Crawford % (Auto) 7.6 % 06/14/23: Eos % (Auto) 0.6 % 06/14/23 15:29 Baso % (Auto) 0.4 % 06/14/23: Neut # (Auto) 5.98 10^3/uL (1.8-7.7) 06/14/23: Lymph # (Auto) 2.2 10^3/uL (0.8-4.8) 06/14/23: Crawford # (Auto) 0.7 10^3/uL (0.2-0.9) 06/14/23: Eos # (Auto) 0.1 10^3/uL (0.0-0.8) 06/14/23: Baso # (Auto) 0.0 10^3/uL (0.0-0.1) 06/14/23: Nucleated RBC % (auto) 0 % 06/14/23: Nucleated RBCs # 0.0 /100WBC 06/14/23 15: Sodium 139 mmol/L (136-145) 06/14/23 15: Potassium 3.3 mmol/L (3.5-5.1) L 06/14/23: Chloride 100 mmol/L (98-107) 06/14/23 15:29 Carbon Dioxide 25 mmol/L (22-29) 06/14/23 15:29 Anion Gap 17.3 (5-19) 06/14/23 15:29 BUN 24 mg/dL (8-23) H 06/14/23 15:29 Creatinine 0.9 mg/dL (0.7-1.2) 06/14/23 15:29 GFR Calculation 85.8 mL/min (90-130) L 06/14/23 15:29 Glucose 133 mg/dL (65-115) H 06/14/23 15:29 Calculated Osmolality 294 mOsm/kg (285-295) 06/14/23 15:29 Calcium 9.2 mg/dL (8.5-10.5) 06/14/23 15:29 Total Bilirubin 1.6 mg/dL (0.15-1.2) H 06/14/23 15:29 AST 36 U/L (0-40) 06/14/23 15:29 ALT 25 U/L (0-41) 06/14/23 15:29 Alkaline Phosphatase 101 U/L (40-130) 06/14/23 15:29 Troponin T Baseline 13 ng/L (0-15) 06/14/23 15:29 Troponin T 120 Minute 10.85 ng/L (0-15) 06/14/23 17:22 Delta Troponin T -2.15 ABS# (0-10) L 06/14/23 17:22 Total Protein 7.4 g/dL (6.6-8.7) 06/14/23 15:29 Albumin 4.7 g/dL (3.5-5.2) 06/14/23 15:29 Globulin 2.7 g/dL (1.3-4.6) 06/14/23 15:29 Discharge Plan Discharge Patient Disposition: Home Clinical Impression: Atypical chest pain, Methamphetamine use disorder, severe Condition: Stable Prescriptions: No Action amitriptyline 50 mg tablet 50 mg PO BEDTIME amlodipine 10 mg tablet 10 mg PO DAILY ibuprofen 200 mg Tablet 200 mg PO Q6H PRN (Reason: Pain) Excedrin Migraine 250-250-65 mg Tablet 1 tab PO Q6H PRN (Reason: Headache) Multi-Vitamins Tablet 1 tab PO DAILY gabapentin 300 mg capsule 300 mg PO TID Discharge Orders: Discharge ED (Routine); Ordered 06/14/23 Ordered By: Yaniv Gonzales Patient Instructions: Chest Pain - Noncardiac, Methamphetamine Abuse Activity Restrictions/Additional Instructions: Please stop using methamphetamines. Please follow-up with your family practice doctor within the next week for further evaluation and treatment. If your chest pain returns and/or worsens please feel free to return to the ER for further evaluation. Coding Level of Care Code ED Locomotive Supervisor for Marisela Mclaughlin
[2023-06-14 15:36] LABS: Basophils % 0.4 %; Eosinophils # 0.1 10^3/uL (0.0-0.8); Eosinophils % 0.6 %; Hematocrit 41.2 % (37-53); Lymphocytes # 2.2 10^3/uL (0.8-4.8); Lymphocytes % 24.4 %; Mean Corpuscular HGB Conc 33.7 g/dL (30-55); Mean Corpuscular Hemoglobin 30.2 pg (27-33); Mean Corpuscular Volume 89.4 fl (82-101); Mean Platelet Volume 10.4 fL (7.4-10.4); Monocytes # 0.7 10^3/uL (0.2-0.9); Monocytes % 7.6 %; Neutrophils # 5.98 10^3/uL (1.8-7.7); Neutrophils % 66.8 %; Nucleated Red Blood Cells % 0 %; Platelet Count 215 10^3/cmm (157-399); Red Blood Count 4.61 10^6/uL (3.85-5.65); Red Cell Distribution Width 13.1 % (12.1-15.1); White Blood Count 8.95 10^3/uL (3.29-11.43)
--- NOTE | 2023-06-14 15:38 | PC.NURSE ---
PT HOOKED UP TO CONTINUOUS BEDSIDE CARDIAC MONITORING.
[2023-06-14 15:57] LABS: Troponin(5th) Baseline 13 ng/L (0-15)
[2023-06-14 15:59] LABS: Alanine Aminotransferase 25 U/L (0-41); Albumin Level 4.7 g/dL (3.5-5.2); Alkaline Phosphatase 101 U/L (40-130); Anion Gap 17.3 (5-19); Aspartate Amino Transferase 36 U/L (0-40); Blood Urea Nitrogen 24 mg/dL (8-23); Calcium 9.2 mg/dL (8.5-10.5); Carbon Dioxide 25 mmol/L (22-29); Chloride 100 mmol/L (98-107); Globulin 2.7 g/dL (1.3-4.6); Glomerular Filtration Rate 85.8 mL/min (90-130); Glucose 133 mg/dL (65-115); Osmolality Calculated 294 mOsm/kg (285-295); Potassium 3.3 mmol/L (3.5-5.1); Sodium 139 mmol/L (136-145); Total Bilirubin 1.6 mg/dL (0.15-1.2); Total Protein 7.4 g/dL (6.6-8.7)
--- NOTE | 2023-06-14 17:19 | ECG_ITS ---
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 Measurements Intervals [place] Rate: 87 P: 68 [place]: 184 QRS: 56 QRSD: 103 T: 85 QT: 384 QTc: 462 Interpretive Statements SINUS RHYTHM WITH OCCASIONAL VENTRICULAR PREMATURE COMPLEXES MODERATE T-WAVE ABNORMALITY, CONSIDER ANTERIOR ISCHEMIA [-0.1+ mV T-WAVE IN V3/V4] Compared to ECG 06/14/2023 15:15:57 Ventricular premature complex(es) now present Sinus tachycardia no longer present T-wave abnormality still present Possible ischemia still present Electronically Signed On 06-14-2023 21:24:34 CDT by Berkley Nicolas M.D. [id number]
[2023-06-14 17:54] LABS: Troponin 5 2HR 10.85 ng/L (0-15); Troponin 5 2HR Delta -2.15 ABS# (0-10)
== END 2023-06-14 19:03 | disposition home or self-care (01) ==
PROVIDERS: Emergency Provider Family Medicine; PCP Registered Nurse
DX: R07.89 Other chest pain (principal); F15.20 Other stimulant dependence, uncomplicated
CPT/HCPCS: 36415; 71045; 80053; 84484; 85025; 93005; 99285

== ENCOUNTER 2024-01-20 17:21 | Emergency (ER) | payer MEDICAID, SELFPAY ==
--- NOTE | 2024-01-20 17:26 | XRR_ITS ---
PROCEDURE INFORMATION: Exam: XR Chest Exam date and time: 01/20/2024 5:49 PM Age: 63 years old Clinical indication: Shortness of breath; Patient HX: SOB; Cough TECHNIQUE: Imaging protocol: Radiologic exam of the chest. Views: 1 view. COMPARISON: CR XR chest 1V portable [id number] 06/14/2023 3:34 PM FINDINGS: Lungs: Linear opacities in the right upper lung zone and left lung base, stable and most consistent with chronic scarring. No consolidation. Pleural spaces: No pleural effusion or pneumothorax. Heart/Mediastinum: The cardiomediastinal silhouette is within normal limits. Bones/joints: No acute osseous abnormalities are seen. XR/XR chest 1V portable [id number] IMPRESSION: No acute cardiopulmonary disease.
[2024-01-20 17:29] VITALS: BP 144/85; PULSE 107; RESP 16; TEMP 36.6; O2SAT 94
--- NOTE | 2024-01-20 17:29 | ECG_ITS ---
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 Measurements Intervals [place] Rate: 104 P: 50 [place]: 165 QRS: 62 QRSD: 104 T: 82 QT: 326 QTc: 429 Interpretive Statements SINUS TACHYCARDIA MODERATE T-WAVE ABNORMALITY, CONSIDER ANTERIOR ISCHEMIA [-0.1+ mV T-WAVE IN V3/V4] Compared to ECG 06/14/2023 17:19:14 Sinus rhythm no longer present Ventricular premature complex(es) no longer present T-wave abnormality still present Possible ischemia still present Electronically Signed On 01-20-2024 20:53:50 CDT by Berkley Nicolas M.D. [email or web address].[employer]/store/[id number]
--- NOTE | 2024-01-20 17:32 | ED_ITS ---
Documented by User: Braden Waters DO 01/21/24 06:54 HPI - SOB/Dyspnea 2 General: Chief Complaint: Shortness of Breath/Dyspnea Stated Complaint: SOB Time Seen by Provider: 01/20/24 17:25 History of Present Illness: Associated symptoms: Deny abdominal pain, chest pain or fever(s) Review of Systems 2 Const: Denies: fever(s) or chills Card: Denies: chest pain Resp: Denies: dyspnea GI: Denies: abdominal pain : Denies: dysuria, urinary frequency or urinary urgency Musc: Denies: neck pain or back pain Skin/Breast: Denies: rash PFSH ED 2 PFSH: Medical History (Updated 01/21/24 @ 06:54 by Braden Waters DO) COPD (chronic obstructive pulmonary disease) Methamphetamine use disorder, severe Physical Exam 2 Const: GENERAL APPEARANCE: cooperative and comfortable O RIENTATION/CONSCIOUSNESS: Yes awake, Yes oriented to person, Yes oriented to place and Yes oriented to time HENMT: COMMON NORMALS: normocephalic, atraumatic and hearing grossly normal bilaterally HEAD & SCALP: normocephalic and atraumatic Resp: COMMON NORMALS: normal respiratory effort, No retractions and No use of accessory muscles AUSCULTATION: rhonchi and wheezes Cardio: COMMON NORMALS: regular rate, regular rhythm and No murmurs present (Cardio) RATE: regular rate RHYTHM: regular rhythm GI: COMMON NORMALS: Soft to palpation and No hepatosplenomegaly present A USCULTATION: Yes normoactive bowel sounds PALPATION: Yes Soft to palpation, No Tenderness to palpation present (GI), No Guarding due to palpation present (GI) and Yes No hepatosplenomegaly present Extremity: COMMON NORMALS: normal to inspection, capillary refill normal, no clubbing, cyanosis or edema, no calf tenderness and no pedal edema Neuro: SENSORIUM/ORIENTATION: Yes oriented to person, Yes oriented to place and Yes oriented to time Skin: COMMON NORMALS: no rashes or lesions noted GENERAL SKIN EXAM: no rashes or lesions noted Course 2 Vital Signs: Vital signs: Vital Signs Temperature 97.9 F 01/20/24 17:29 Pulse Rate 100 01/20/24 21:09 Respiratory Rate 23 H 01/20/24 20:37 Blood Pressure 152/86 01/20/24 21:09 Pulse Oximetry 94 01/20/24 21:09 Oxygen Delivery Me thod Room Air 01/20/24 18:46 MDM - SOB/Dyspnea Medical Decision Making Care signed out to Dr. Anders at change of shift. See final notes for diagnosis and disposition. 63-year-old male checked out to me at shift change. This gentleman had experienced shortness of breath, with some mild chest discomfort. He was wheezing on exam. His CBC is normal. BMP is not remarkable. Chest x-ray is nonacute. Delta troponin is 0 at 2 hours. He improved after dexamethasone and breathing treatment here. He will be treated for acute bronchitis/COPD exacerbation. Steroids, antibiotics, inhaler. He understands and knows to return for worsening symptoms. Lab Data 01/20/24 17:47 01/20/24 17:47 Labs/Radiology: Radiology Impressions Chest X-Ray 01/20/24 17:26 IMPRESSION: No acute cardiopulmonary disease. Laboratory Results WBC 6.91 10^3/uL (3.29-11.43) 01/20/24 17:47 RBC 4.63 10^6/uL (3.85-5.65) 01/20/24 17:47 Hgb 14.40 g/dL (11.27-16.99) 01/20/24 17:47 Hct 42.3 % (37-53) 01/20/24 17:47 MCV 91.4 fl (82-101) 01/20/24 17:47 MCH 31.1 pg (27-33) 01/20/24 17:47 MCHC 34.0 g/dL (30-55) 01/20/24 17:47 RDW 13.5 % (12.1-15.1) 01/20/24 17:47 Plt Count 196 10^3/cmm (157-399) 01/20/24 17:47 MPV 10.3 fL (7.4-10.4) 01/20/24 17:47 Neut % (Auto) 55.6 % 01/20/24 17:47 Lymph % (Auto) 34.9 % 01/20/24 17:47 Norman % (Auto) 6.1 % 01/20/24 17:47 Eos % (Auto) 2.6 % 01/20/24 17:47 Baso % (Auto) 0.7 % 01/20/24 17:47 Neut # (Auto) 3.84 10^3/uL (1.8-7.7) 01/20/24 17:47 Lymph # (Auto) 2.4 10^3/uL (0.8-4.8) 01/20/24 17:47 Norman # (Auto) 0.4 10^3/uL (0.2-0.9) 01/20/24 17:47 Eos # (Auto) 0.2 10^3/uL (0.0-0.8) 01/20/24 17:47 Baso # (Auto) 0.1 10^3/uL (0.0-0.1) 01/20/24 17:47 Nucleated RBC % (auto) 0 % 01/20/24 17:47 Nucleated RBCs # 0.0 /100WBC 01/20/24 17:47 Sodium 138 mmol/L (136-145) 01/20/24 17:47 Potassium 3.7 mmol/L (3.5-5.1) 01/20/24 17:47 Chloride 102 mmol/L (98-107) 01/20/24 17:47 Carbon Dioxide 23 mmol/L (22-29) 01/20/24 17:47 Anion Gap 16.7 (5-19) 01/20/24 17:47 BUN 19 mg/dL (8-23) 01/20/24 17:47 Creatinine 0.7 mg/dL (0.7-1.2) 01/20/24 17:47 GFR Calculation 114.6 mL/min (90-130) 01/20/24 17:47 Glucose 148 mg/dL (65-115) H 01/20/24 17:47 Calculated Osmolality 291 mOsm/kg (285-295) 01/20/24 17:47 Calcium 8.7 mg/dL (8.5-10.5) 01/20/24 17:47 Total Bilirubin 0.4 mg/dL (0.15-1.2) 01/20/24 17:47 AST 35 U/L (0-40) 01/20/24 17:47 ALT 29 U/L (0-41) 01/20/24 17:47 Alkaline Phosphatase 102 U/L (40-130) 01/20/24 17:47 Troponin T Baseline 9 ng/L (0-15) 01/20/24 17:47 Troponin T 120 Minute 9.08 ng/L (0-15) 01/20/24 19:53 Delta Troponin T 0.08 ABS# (0-10) 01/20/24 19:53 Total Protein 7.4 g/dL (6.6-8.7) 01/20/24 17:47 Albumin 4.3 g/dL (3.5-5.2) 01/20/24 17:47 Globulin 3.1 g/dL (1.3-4.6) 01/20/24 17:47 Ethyl Alcohol < 10 mg/dL (0-10) 01/20/24 17:47 Discharge Plan Discharge Patient Disposition: Home Clinical Impression: Acute bronchitis Condition: Stable Prescriptions: New Medrol (Kuldip) 4 mg tablets,dose pack See Rx Instructions .ROUTE .COMPLEX Qty: 21 0RF Rx Instructions: orally per package directions albuterol sulfate 90 mcg/actuation HFA aerosol inhaler 2 inh INHALATION Q4H PRN (Reason: shortness of breath or wheezing) Qty: 6.7 1RF doxycycline hyclate 100 mg tablet 100 mg PO BID 7 Days Qty: 14 0RF No Action amitriptyline 50 mg tablet 50 mg PO BEDTIME amlodipine 10 mg tablet 10 mg PO DAILY ibuprofen 200 mg Tablet 200 mg PO Q6H PRN (Reason: Pain) Excedrin Migraine 250-250-65 mg Tablet 1 tab PO Q6H PRN (Reason: Headache) Multi-Vitamins Tablet 1 tab PO DAILY gabapentin 300 mg capsule 300 mg PO TID Discharge Orders: Discharge ED (Routine); Ordered 01/20/24 Ordered By: Brody Anders Referrals: Katina Mata [Primary Care Provider] - 4-7 days Patient Instructions: Acute Bronchitis (ED), Opioid Safety, Pain Management Activity Restrictions/Additional Instructions: Use the albuterol inhaler every 4 hours while awake for the next 48 hours whether you feel you needed or not, and then as needed following. Return for worsening shortness of breath despite treatment, fever despite 3-4 doses of antibiotics, any other concerning symptoms. See your doctor this coming week. Coding Level of Care Code ED Machine Repairer Maintenance for Chg Fwd Documented by User: Brody Anders DO 01/21/24 00:18 HPI - SOB/Dyspnea 2 General: Chief Complaint: Shortness of Breath/Dyspnea Stated Complaint: SOB Time Seen by Provider: 01/20/24 17:25 History of Present Illness: HPI Narrative: 63-year-old male originally seen by Dr. Cornejo. He complains of shortness of breath. It has been progressive over a week. He presents stating today is much worse. He believes he has fluid around his heart. No fever PFSH ED 2 PFSH: Medical History (Updated 01/21/24 @ 06:54 by Braden Waters DO) COPD (chronic obstructive pulmonary disease) Methamphetamine use disorder, severe Course 2 Vital Signs: Vital signs: Vital Signs Temperature 97.9 F 01/20/24 17:29 Pulse Rate 100 01/20/24 21:09 Respiratory Rate 23 H 01/20/24 20:37 Blood Pressure 152/86 01/20/24 21:09 Pulse Oximetry 94 01/20/24 21:09 Oxygen Delivery Me thod Room Air 01/20/24 18:46 MDM - SOB/Dyspnea Medical Decision Making 63-year-old male checked out to me at shift change. This gentleman had experienced shortness of breath, with some mild chest discomfort. He was wheezing on exam. His CBC is normal. BMP is not remarkable. Chest x-ray is nonacute. Delta troponin is 0 at 2 hours. He improved after dexamethasone and breathing treatment here. He will be treated for acute bronchitis/COPD exacerbation. Steroids, antibiotics, inhaler. He understands and knows to return for worsening symptoms. Lab Data 01/20/24 17:47 01/20/24 17:47 Labs/Radiology: Radiology Impressions Chest X-Ray 01/20/24 17:26 IMPRESSION: No acute cardiopulmonary disease. Laboratory Results WBC 6.91 10^3/uL (3.29-11.43) 01/20/24 17:47 RBC 4.63 10^6/uL (3.85-5.65) 01/20/24 17:47 Hgb 14.40 g/dL (11.27-16.99) 01/20/24 17:47 Hct 42.3 % (37-53) 01/20/24 17:47 MCV 91.4 fl (82-101) 01/20/24 17:47 MCH 31.1 pg (27-33) 01/20/24 17:47 MCHC 34.0 g/dL (30-55) 01/20/24 17:47 RDW 13.5 % (12.1-15.1) 01/20/24 17:47 Plt Count 196 10^3/cmm (157-399) 01/20/24 17:47 MPV 10.3 fL (7.4-10.4) 01/20/24 17:47 Neut % (Auto) 55.6 % 01/20/24 17:47 Lymph % (Auto) 34.9 % 01/20/24 17:47 Norman % (Auto) 6.1 % 01/20/24 17:47 Eos % (Auto) 2.6 % 01/20/24 17:47 Baso % (Auto) 0.7 % 01/20/24 17:47 Neut # (Auto) 3.84 10^3/uL (1.8-7.7) 01/20/24 17:47 Lymph # (Auto) 2.4 10^3/uL (0.8-4.8) 01/20/24 17:47 Norman # (Auto) 0.4 10^3/uL (0.2-0.9) 01/20/24 17:47 Eos # (Auto) 0.2 10^3/uL (0.0-0.8) 01/20/24 17:47 Baso # (Auto) 0.1 10^3/uL (0.0-0.1) 01/20/24 17:47 Nucleated RBC % (auto) 0 % 01/20/24 17:47 Nucleated RBCs # 0.0 /100WBC 01/20/24 17:47 Sodium 138 mmol/L (136-145) 01/20/24 17:47 Potassium 3.7 mmol/L (3.5-5.1) 01/20/24 17:47 Chloride 102 mmol/L (98-107) 01/20/24 17:47 Carbon Dioxide 23 mmol/L (22-29) 01/20/24 17:47 Anion Gap 16.7 (5-19) 01/20/24 17:47 BUN 19 mg/dL (8-23) 01/20/24 17:47 Creatinine 0.7 mg/dL (0.7-1.2) 01/20/24 17:47 GFR Calculation 114.6 mL/min (90-130) 01/20/24 17:47 Glucose 148 mg/dL (65-115) H 01/20/24 17:47 Calculated Osmolality 291 mOsm/kg (285-295) 01/20/24 17:47 Calcium 8.7 mg/dL (8.5-10.5) 01/20/24 17:47 Total Bilirubin 0.4 mg/dL (0.15-1.2) 01/20/24 17:47 AST 35 U/L (0-40) 01/20/24 17:47 ALT 29 U/L (0-41) 01/20/24 17:47 Alkaline Phosphatase 102 U/L (40-130) 01/20/24 17:47 Troponin T Baseline 9 ng/L (0-15) 01/20/24 17:47 Troponin T 120 Minute 9.08 ng/L (0-15) 01/20/24 19:53 Delta Troponin T 0.08 ABS# (0-10) 01/20/24 19:53 Total Protein 7.4 g/dL (6.6-8.7) 01/20/24 17:47 Albumin 4.3 g/dL (3.5-5.2) 01/20/24 17:47 Globulin 3.1 g/dL (1.3-4.6) 01/20/24 17:47 Ethyl Alcohol < 10 mg/dL (0-10) 01/20/24 17:47 All radiology interpretation(s) finalized by discharge Discharge Plan Discharge Patient Disposition: Home Clinical Impression: Acute bronchitis Condition: Stable Prescriptions: New Medrol (Kuldip) 4 mg tablets,dose pack See Rx Instructions .ROUTE .COMPLEX Qty: 21 0RF Rx Instructions: orally per package directions albuterol sulfate 90 mcg/actuation HFA aerosol inhaler 2 inh INHALATION Q4H PRN (Reason: shortness of breath or wheezing) Qty: 6.7 1RF doxycycline hyclate 100 mg tablet 100 mg PO BID 7 Days Qty: 14 0RF No Action amitriptyline 50 mg tablet 50 mg PO BEDTIME amlodipine 10 mg tablet 10 mg PO DAILY ibuprofen 200 mg Tablet 200 mg PO Q6H PRN (Reason: Pain) Excedrin Migraine 250-250-65 mg Tablet 1 tab PO Q6H PRN (Reason: Headache) Multi-Vitamins Tablet 1 tab PO DAILY gabapentin 300 mg capsule 300 mg PO TID Discharge Orders: Discharge ED (Routine); Ordered 01/20/24 Ordered By: Brody Anders Referrals: Katina Mata [Primary Care Provider] - 4-7 days Patient Instructions: Acute Bronchitis (ED), Opioid Safety, Pain Management Activity Restrictions/Additional Instructions: Use the albuterol inhaler every 4 hours while awake for the next 48 hours whether you feel you needed or not, and then as needed following. Return for worsening shortness of breath despite treatment, fever despite 3-4 doses of antibiotics, any other concerning symptoms. See your doctor this coming week. Coding Level of Care Code ED Machine Repairer Maintenance for Marisela Mclaughlin
[2024-01-20 17:52] LABS: Basophils # 0.1 10^3/uL (0.0-0.1); Basophils % 0.7 %; Eosinophils # 0.2 10^3/uL (0.0-0.8); Eosinophils % 2.6 %; Hematocrit 42.3 % (37-53); Lymphocytes # 2.4 10^3/uL (0.8-4.8); Lymphocytes % 34.9 %; Mean Corpuscular Hemoglobin 31.1 pg (27-33); Mean Corpuscular Volume 91.4 fl (82-101); Mean Platelet Volume 10.3 fL (7.4-10.4); Monocytes # 0.4 10^3/uL (0.2-0.9); Monocytes % 6.1 %; Neutrophils # 3.84 10^3/uL (1.8-7.7); Neutrophils % 55.6 %; Nucleated Red Blood Cells % 0 %; Platelet Count 196 10^3/cmm (157-399); Red Blood Count 4.63 10^6/uL (3.85-5.65); Red Cell Distribution Width 13.5 % (12.1-15.1); White Blood Count 6.91 10^3/uL (3.29-11.43)
[2024-01-20 18:10] LABS: Alanine Aminotransferase 29 U/L (0-41); Albumin Level 4.3 g/dL (3.5-5.2); Alkaline Phosphatase 102 U/L (40-130); Anion Gap 16.7 (5-19); Aspartate Amino Transferase 35 U/L (0-40); Blood Urea Nitrogen 19 mg/dL (8-23); Calcium 8.7 mg/dL (8.5-10.5); Carbon Dioxide 23 mmol/L (22-29); Chloride 102 mmol/L (98-107); Creatinine Clr Calc Pharmacy 108.8062; Globulin 3.1 g/dL (1.3-4.6); Glomerular Filtration Rate 114.6 mL/min (90-130); Glucose 148 mg/dL (65-115); Osmolality Calculated 291 mOsm/kg (285-295); Potassium 3.7 mmol/L (3.5-5.1); Sodium 138 mmol/L (136-145); Total Bilirubin 0.4 mg/dL (0.15-1.2); Total Protein 7.4 g/dL (6.6-8.7)
[2024-01-20 18:11] LABS: Troponin(5th) Baseline 9 ng/L (0-15)
[2024-01-20 18:24] LABS: Alcohol Level < 10 mg/dL (0-10)
[2024-01-20] MEDS: dexamethasone 10 mg/mL INJ IM (18:37)
[2024-01-20] MEDS: ipratropium-albuterol 3 mL Neb INHALATION (18:43)
[2024-01-20 18:46] VITALS: PULSE 92; RESP 19; O2SAT 94
[2024-01-20 18:47] VITALS: BP 135/85; PULSE 103; RESP 16; O2SAT 95
[2024-01-20 18:53] VITALS: PULSE 104
--- NOTE | 2024-01-20 19:26 | ECG_ITS ---
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 Measurements Intervals [place] Rate: 99 P: 61 AR: 169 QRS: 39 QRSD: 100 T: 73 QT: 337 QTc: 433 Interpretive Statements SINUS RHYTHM LOW QRS VOLTAGE IN PRECORDIAL LEADS [QRS DEFLECTION < 1.0 mV IN CHEST LEADS] MODERATE T-WAVE ABNORMALITY, CONSIDER ANTERIOR ISCHEMIA [-0.1+ mV T-WAVE IN V3/V4] Compared to ECG 01/20/2024 17:29:32 Low QRS voltage now present Sinus tachycardia no longer present T-wave abnormality still present Possible ischemia still present Electronically Signed On 01-20-2024 21:02:46 CDT by Berkley Nicolas M.D. [id number]
[2024-01-20 20:17] LABS: Troponin 5 2HR 9.08 ng/L (0-15); Troponin 5 2HR Delta 0.08 ABS# (0-10)
[2024-01-20 20:37] VITALS: BP 141/91; PULSE 101; RESP 23; O2SAT 96
[2024-01-20 21:09] VITALS: BP 152/86; PULSE 100; O2SAT 94
== END 2024-01-20 21:11 | disposition home or self-care (01) ==
PROVIDERS: Family Medicine; Emergency Provider Emergency Medicine; PCP Registered Nurse
DX: J44.0 Chronic obstructive pulmonary disease with (acute) lower respiratory infection (principal); J20.9 Acute bronchitis, unspecified
CPT/HCPCS: 36415; 71045; 80053; 80307; 84484; 85025; 93005; 94640; 96372; 99285; J1100

== ENCOUNTER 2024-05-25 08:39 | Emergency (ER) | payer MEDICAID, SELFPAY ==
[2024-05-25 08:41] VITALS: BP 157/92; PULSE 104; RESP 21; TEMP 36.6; O2SAT 92; BMI 28.1
--- NOTE | 2024-05-25 08:44 | ECG_ITS ---
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 Measurements Intervals [place] Rate: 102 P: 40 MS: 179 QRS: 51 QRSD: 86 T: 83 QT: 317 QTc: 414 Interpretive Statements SINUS TACHYCARDIA LOW QRS VOLTAGE IN PRECORDIAL LEADS [QRS DEFLECTION < 1.0 mV IN CHEST LEADS] SEPTAL MYOCARDIAL INFARCTION , OF INDETERMINATE AGE [40+ ms Q WAVE IN V1/V2] Compared to ECG 01/20/2024 19:17:41 Myocardial infarct finding now present Sinus rhythm no longer present T-wave abnormality no longer present Possible ischemia no longer present Electronically Signed On 05-25-2024 20:08:25 CDT by Richard Hobson M.D. [id number] f
--- NOTE | 2024-05-25 08:50 | CTR_ITS ---
PROCEDURE INFORMATION: Exam: CT Abdomen And Pelvis With Contrast Exam date and time: 05/25/2024 9:49 AM Age: 64 years old Clinical indication: Abdominal pain; Periumbilical; Prior surgery; Surgery date: 6+ months; Surgery type: Appy 1972; Additional info: Abd pain TECHNIQUE: Imaging protocol: Computed tomography of the abdomen and pelvis with contrast. Radiation optimization: All CT scans at this facility use at least one of these dose optimization techniques: automated exposure control; mA and/or kV adjustment per patient size (includes targeted exams where dose is matched to clinical indication); or iterative reconstruction. Contrast material: OMNIPAQUE 350; Contrast volume: 100 ml; Contrast route: INTRAVENOUS (IV); COMPARISON: US gall bladder [id number] 05/25/2024 9:14 AM RADIATION DOSE METRICS: Total DLP (mGy-cm): 720.43 FINDINGS: Lungs: Small amount of scarring and subsegmental atelectasis in the lung bases. Diaphragm: Small hiatal hernia. Liver: Diffuse fatty infiltration of the liver. Otherwise, unremarkable. Gallbladder and biliary ducts: Normal. No calcified stones. No ductal dilation. Pancreas: Normal. No ductal dilation. Spleen: Normal. No splenomegaly. Adrenal glands: Normal. No mass. Kidneys and ureters: A few small renal cysts bilaterally need no follow-up. Otherwise, unremarkable. Stomach and bowel: A few diverticula from the colon. No diverticulitis. Otherwise, unremarkable. Appendix: Appendectomy. Intraperitoneal space: Unremarkable. No free air. No significant fluid collection. Vasculature: Moderate amount of arterial calcification. Otherwise, unremarkable. Lymph nodes: Unremarkable. No enlarged lymph nodes. Urinary bladder: Unremarkable as visualized. Reproductive: Unremarkable as visualized. Bones/joints: Unremarkable. No acute fracture. Soft tissues: Bilateral buttock injection granulomas. Otherwise, unremarkable visualized body wall. Otherwise, unremarkable soft tissues. CT/CT abdomen pelvis w con* [id number] IMPRESSION: 1. Diffuse fatty infiltration of the liver. 2. Small hiatal hernia. 3. No other acute abdominal or pelvic findings. 4. Additional details as above.
--- NOTE | 2024-05-25 08:50 | USR_ITS ---
PROCEDURE INFORMATION: Exam: US Abdomen, Limited; Right Upper Quadrant Exam date and time: 05/25/2024 9:14 AM Age: 64 years old Clinical indication: Abdominal pain; Epigastric; Additional info: Ruq pain TECHNIQUE: Imaging protocol: Real time ultrasound of the abdomen with image documentation. Limited exam focused on the right upper quadrant. COMPARISON: No relevant prior studies available. FINDINGS: Liver: Normal. No masses. Gallbladder: Single gallstone in the gallbladder measuring 1.8 cm in maximum dimension. No pericholecystic fluid. There is no gallbladder wall thickening. Otherwise, unremarkable Biliary ducts: Normal. No stones. No dilation. Pancreas: Visualized pancreas is unremarkable. Right kidney: Normal. No mass. No hydronephrosis. 9.3 cm in length. Aorta: Unremarkable abdominal aorta. Inferior vena cava: Unremarkable IVC. Portal venous: Normal hepatopetal flow in the portal vein. US/US gall bladder [id number] IMPRESSION: 1. Single gallstone in the gallbladder. No evidence of cholecystitis. 2. Otherwise, unremarkable right upper quadrant ultrasound.
--- NOTE | 2024-05-25 08:50 | XRR_ITS ---
PROCEDURE INFORMATION: Exam: XR Chest Exam date and time: 05/25/2024 9:28 AM Age: 64 years old Clinical indication: Pain; Chest pressure; Additional info: Cp TECHNIQUE: Imaging protocol: Radiologic exam of the chest. Views: 1 view. COMPARISON: CR XR chest 1V portable [id number] 01/20/2024 5:49 PM FINDINGS: Lungs: Unchanged scarring in the right mid lung and left lower lung. Otherwise, unremarkable. Pleural spaces: Unremarkable. No pleural effusion. No pneumothorax. Heart/Mediastinum: Unremarkable. No cardiomegaly. Bones/joints: Unremarkable. XR/XR chest 1V portable [id number] IMPRESSION: No acute disease.
--- NOTE | 2024-05-25 08:52 | ED_ITS ---
HPI - Abdominal Pain 2 General: Chief Complaint: Abdominal Pain Stated Complaint: UPPER GASTRIC PAIN Time Seen by Provider: 05/25/24 08:41 Source: patient and EMS Mode of arrival: EMS Limitations: no limitations History of Present Illness: 64-year-old male states he has been havi ng epigastric abdominal pain since this morning. States the pain is very sharp in nature rates an 8 out of 10 denies any worsening improving factors he denies any vomiting or diarrhea denies any shortness of breath. Has had an appendectomy he denies any other surgeries history of meth abuse as well. Associated Symptoms: Denies chills, diarrhea, dysuria, fever(s), nausea and vomiting Related Data Home Medications Medication Instructions Recorded Confirmed gabapentin 300 mg capsule 300 mg PO TID 11/15/22 06/14/23 amitriptyline 50 mg tablet 50 mg PO BEDTIME 06/14/23 06/14/23 amlodipine 10 mg tablet 10 mg PO DAILY 06/14/23 06/14/23 [id number]-[id number] 250 1 tab PO Q6H PRN Headache 06/14/23 06/14/23 mg-250 mg-65 mg tablet (Excedrin Migraine) ibuprofen 200 mg tablet 200 mg PO Q6H PRN Pain 06/14/23 06/14/23 multivitamin 1 tab PO DAILY 06/14/23 06/14/23 Previous Rx's Medication Instructions Recorded albuterol sulfate 90 mcg/actuation 2 inh inhalation Q4H PRN shortness 01/20/24 aerosol inhaler of breath or wheezing #6.7 grams methylprednisolone 4 mg tablets in See Rx Instructions PO .COMPLEX 01/20/24 a dose pack (Medrol (Kuldip)) #21 ea ondansetron 4 mg disintegrating 4 mg PO Q6H PRN nausea and 05/25/24 tablet vomiting #14 tabs pantoprazole 40 mg tablet,delayed 40 mg PO DAILY #60 tabs 05/25/24 release (Protonix) Allergies Allergy/AdvReac Type Severity Reaction Status Date / Time diphenhydramine Allergy Unknown Unknown Verified 01/17/23 18:45 [From Benadryl] menthol Allergy Unknown Unknown Verified 01/17/23 18:45 Review of Systems 2 Const: Denies: fever(s), chills, body aches or change in appetite ENMT: Denies: throat pain or dental pain Card: Denies: chest pain Resp: Denies: dyspnea GI: Reports: abdominal pain; Denies: nausea, vomiting or diarrhea : Denies: dysuria Musc: Denies: neck pain or back pain Skin/Breast: Denies: rash Neuro: Denies: headache(s) PFSH ED 2 PFSH: Medical History COPD (chronic obstructive pulmonary disease) Methamphetamine use disorder, severe Physical Exam 2 Const: COMMON NORMALS: no acute distress, patient oriented x3 and healthy appearing HENMT: COMMON NORMALS: normocephalic and atraumatic HEAD & SCALP: n ormocephalic and atraumatic Eye: COMMON NORMALS: Equal, round and reactive pupils present and EOMs intact bilaterally PUPIL: Yes Equal, round and reactive pupils present Neck/C-Spine: COMMON NORMALS: full ROM and supple Chest: COMMONS NORMALS: normal inspection of the chest Resp: COMMON NORMALS: normal respiratory effort, No retractions, No use of accessory muscles and clear to auscultation bilaterally AUSCULTATION: clear to auscultation bilaterally Cardio: COMMON NORMALS: regular rhythm and No murmurs present (Cardio) R ATE: tachycardic RHYTHM: regular rhythm GI: COMMON NORMALS: Normal to inspection, nondistended, normoactive bowel sounds present, Soft to palpation and no masses PALPATION: Yes Soft to palpation OTHER: epigastric tenderness Extremity: COMMON NORMALS: normal to inspection and full ROM Neuro: COMMON NORMALS: patient oriented x3, moves all extremities and no focal motor deficits Psych: COMMON NORMALS: mental status grossly normal, Normal thought process present and cooperative THOUGHT PROCESS: Normal thought process present Skin: COMMON NORMALS: no rashes or lesions noted and no wounds GENERAL SKIN EXAM: no rashes or lesions noted Course 2 Vital Signs: Vital signs: Vital Signs Temperature 97.8 F 05/25/24 08:41 Pulse Rate 104 H 05/25/24 08:41 Respiratory Rate 21 H 05/25/24 08:41 Blood Pressure 157/92 05/25/24 08:41 Pulse Oximetry 92 05/25/24 08:41 Oxygen Delivery Me thod Room Air 05/25/24 08:41 MDM - Abdominal Pain Medical Decision Making Patient presents here with abdominal pain he feels improved here his CT scan blood work here are all normal time any chest pain here but did check troponins as he is having epigastric pain no signs of acute coronary syndrome we will start him on Protonix we will get him follow-up with surgery he is return if worsening he understands agrees to plan. Medical Records I reviewed the patient's medical records. Lab Data I reviewed the patient's lab results. 05/25/24 09:07 05/25/24 09:07 Labs/Radiology: Radiology Impressions Abdomen/Pelvis CT 05/25/24 08:50 IMPRESSION: 1. Diffuse fatty infiltration of the liver. 2. Small hiatal hernia. 3. No other acute abdominal or pelvic findings. 4. Additional details as above. Chest X-Ray 05/25/24 08:50 IMPRESSION: No acute disease. Gallbladder Ultrasound 05/25/24 08:50 IMPRESSION: 1. Single gallstone in the gallbladder. No evidence of cholecystitis. 2. Otherwise, unremarkable right upper quadrant ultrasound. Laboratory Results WBC 8.44 10^3/uL (3.29-11.43) 05/25/24 09:07 RBC 5.29 10^6/uL (3.85-5.65) 05/25/24 09:07 Hgb 16.30 g/dL (11.27-16.99) 05/25/24 09:07 Hct 48.3 % (37-53) 05/25/24 09:07 MCV 91.3 fl (82-101) 05/25/24 09:07 MCH 30.8 pg (27-33) 05/25/24 09:07 MCHC 33.7 g/dL (30-55) 05/25/24 09:07 RDW 13.1 % (12.1-15.1) 05/25/24 09:07 Plt Count 241 10^3/cmm (157-399) 05/25/24 09:07 MPV 10.3 fL (7.4-10.4) 05/25/24 09:07 Neut % (Auto) 65.4 % 05/25/24 09:07 Lymph % (Auto) 24.3 % 05/25/24 09:07 [place] % (Auto) 8.9 % 05/25/24 09:07 Eos % (Auto) 0.4 % 05/25/24 09:07 Baso % (Auto) 0.6 % 05/25/24 09:07 Neut # (Auto) 5.53 10^3/uL (1.8-7.7) 05/25/24 09:07 Lymph # (Auto) 2.1 10^3/uL (0.8-4.8) 05/25/24 09:07 [place] # (Auto) 0.8 10^3/uL (0.2-0.9) 05/25/24 09:07 Eos # (Auto) 0.0 10^3/uL (0.0-0.8) 05/25/24 09:07 Baso # (Auto) 0.1 10^3/uL (0.0-0.1) 05/25/24 09:07 Nucleated RBC % (auto) 0 % 05/25/24 09:07 Nucleated RBCs # 0.0 /100WBC 05/25/24 09:07 Sodium 133 mmol/L (136-145) L 05/25/24 09:07 Potassium 4.4 mmol/L (3.5-5.1) 05/25/24 09:07 Chloride 94 mmol/L (98-107) L 05/25/24 09:07 Carbon Dioxide 19 mmol/L (22-29) L 05/25/24 09:07 Anion Gap 24.4 (5-19) H 05/25/24 09:07 BUN 25 mg/dL (8-23) H 05/25/24 09:07 Creatinine 0.8 mg/dL (0.7-1.2) 05/25/24 09:07 GFR Calculation 98.0 mL/min (90-130) 05/25/24 09:07 Glucose 234 mg/dL (65-115) H 05/25/24 09:07 Calculated Osmolality 288 mOsm/kg (285-295) 05/25/24 09:07 Calcium 8.2 mg/dL (8.5-10.5) L 05/25/24 09:07 Total Bilirubin 0.6 mg/dL (0.15-1.2) 05/25/24 09:07 AST 119 U/L (0-40) H 05/25/24 09:07 ALT 99 U/L (0-41) H 05/25/24 09:07 Alkaline Phosphatase 112 U/L (40-130) 05/25/24 09:07 Troponin T Baseline 14 ng/L (0-15) 05/25/24 09:07 Troponin T 120 Minute 10.73 ng/L (0-15) 05/25/24 11:06 Delta Troponin T -3.27 ABS# (0-10) L 05/25/24 11:06 Total Protein 7.2 g/dL (6.6-8.7) 05/25/24 09:07 Albumin 4.4 g/dL (3.5-5.2) 05/25/24 09:07 Globulin 2.8 g/dL (1.3-4.6) 05/25/24 09:07 Lipase 50 U/L (13-60) 05/25/24 09:07 All radiology interpretation(s) finalized by discharge EKG Data EKG 1: I personally reviewed and interpreted this EKG as follows: EKG interpretation date: 05/25/24 EKG interpretation time: 08:44 Interpretation: sinus tach hr [address] or t wave abnormalities qrs 86 qtc 376 Discharge Plan Discharge Patient Disposition: Home Clinical Impression: Abdominal pain Condition: Stable Prescriptions: New pantoprazole [Protonix] 40 mg tablet,delayed release (DR/EC) 40 mg PO DAILY Qty: 60 0RF ondansetron 4 mg tablet,disintegrating 4 mg PO Q6H PRN (Reason: nausea and vomiting) Qty: 14 0RF No Action amitriptyline 50 mg tablet 50 mg PO BEDTIME amlodipine 10 mg tablet 10 mg PO DAILY ibuprofen 200 mg Tablet 200 mg PO Q6H PRN (Reason: Pain) Excedrin Migraine 250-250-65 mg Tablet 1 tab PO Q6H PRN (Reason: Headache) Multi-Vitamins Tablet 1 tab PO DAILY Medrol (Kuldip) 4 mg tablets,dose pack See Rx Instructions .ROUTE .COMPLEX Qty: 21 0RF Rx Instructions: orally per package directions albuterol sulfate 90 mcg/actuation HFA aerosol inhaler 2 inh INHALATION Q4H PRN (Reason: shortness of breath or wheezing) Qty: 6.7 1RF gabapentin 300 mg capsule 300 mg PO TID Discharge Orders: Discharge ED (Routine); Ordered 05/25/24 Ordered By: Tangela Vang Referrals: Bobby Garces MD [Physician] - 4-7 days Katina Mata [Primary Care Provider] - Discharge Diet: Advance as tolerated Discharge Activity: Resume usual activity Patient Instructions: Abdominal Pain (ED) Coding Level of Care Code ED Passenger Attendant for Marisela Mclaughlin
[2024-05-25] MEDS: morphine 4 mg/mL SDV 1 mL IVP ×2 (08:59→12:41)
[2024-05-25] MEDS: ondansetron 2 mg/ML SDV 2 mL 4 MG IVP (08:59)
[2024-05-25 09:15] LABS: Basophils # 0.1 10^3/uL (0.0-0.1); Basophils % 0.6 %; Eosinophils % 0.4 %; Hematocrit 48.3 % (37-53); Lymphocytes # 2.1 10^3/uL (0.8-4.8); Lymphocytes % 24.3 %; Mean Corpuscular HGB Conc 33.7 g/dL (30-55); Mean Corpuscular Hemoglobin 30.8 pg (27-33); Mean Corpuscular Volume 91.3 fl (82-101); Mean Platelet Volume 10.3 fL (7.4-10.4); Monocytes # 0.8 10^3/uL (0.2-0.9); Monocytes % 8.9 %; Neutrophils # 5.53 10^3/uL (1.8-7.7); Neutrophils % 65.4 %; Nucleated Red Blood Cells % 0 %; Platelet Count 241 10^3/cmm (157-399); Red Blood Count 5.29 10^6/uL (3.85-5.65); Red Cell Distribution Width 13.1 % (12.1-15.1); White Blood Count 8.44 10^3/uL (3.29-11.43)
[2024-05-25 09:34] LABS: Troponin(5th) Baseline 14 ng/L (0-15)
[2024-05-25 09:36] LABS: Alanine Aminotransferase 99 U/L (0-41); Albumin Level 4.4 g/dL (3.5-5.2); Alkaline Phosphatase 112 U/L (40-130); Aspartate Amino Transferase 119 U/L (0-40); Blood Urea Nitrogen 25 mg/dL (8-23); Calcium 8.2 mg/dL (8.5-10.5); Carbon Dioxide 19 mmol/L (22-29); Chloride 94 mmol/L (98-107); Creatinine Clr Calc Pharmacy 97.9317; Globulin 2.8 g/dL (1.3-4.6); Glucose 234 mg/dL (65-115); Lipase 50 U/L (13-60); Osmolality Calculated 288 mOsm/kg (285-295); Sodium 133 mmol/L (136-145); Total Bilirubin 0.6 mg/dL (0.15-1.2); Total Protein 7.2 g/dL (6.6-8.7)
[2024-05-25 09:46] LABS: Anion Gap 24.4 (5-19); Potassium 4.4 mmol/L (3.5-5.1)
[2024-05-25] MEDS: iohexol 350 mg/mL 500 mL Btl (per mL) IV (10:02)
[2024-05-25] MEDS: sodium chloride 0.9% 1,000 ML 999 ML IV (10:28)
[2024-05-25] MEDS: lidocaine 2% viscous 15 ML, aluminum-mag hydrox-simethicon 30 ML, sucralfate oral liq 1 GM PO (10:29)
[2024-05-25 11:00] VITALS: BP 138/97; PULSE 87; O2SAT 93
--- NOTE | 2024-05-25 11:17 | ECG_ITS ---
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 Measurements Intervals [place] Rate: 102 P: 37 MS: 167 QRS: 37 QRSD: 94 T: 71 QT: 342 QTc: 447 Interpretive Statements SINUS TACHYCARDIA NONSPECIFIC T-WAVE ABNORMALITY Compared to ECG 01/20/2024 19:17:41 Sinus rhythm no longer present Possible ischemia no longer present T-wave abnormality still present Electronically Signed On 05-25-2024 20:10:57 CDT by Richard Hobson M.D. [id number]
[2024-05-25 11:31] LABS: Troponin 5 2HR 10.73 ng/L (0-15)
[2024-05-25 11:32] LABS: Troponin 5 2HR Delta -3.27 ABS# (0-10)
== END 2024-05-25 13:14 | disposition home or self-care (01) ==
PROVIDERS: Emergency Provider Emergency Medicine; PCP Registered Nurse
DX: R10.13 Epigastric pain (principal); R00.0 Tachycardia, unspecified; J44.9 Chronic obstructive pulmonary disease, unspecified
CPT/HCPCS: 36415; 71045; 74177; 76705; 80053; 83690; 84484; 85025; 93005; 96374; 96375; 96376; 99285; J2270; J2405; J7030; Q9967

== ENCOUNTER 2024-10-18 09:56 | Inpatient (IN) | payer MEDICAID, SELFPAY ==
[2024-10-18] VITALS (9 sets, daily range): BP systolic 118–146; BP diastolic 78–92; PULSE 107–123; RESP 18–28; TEMP 36.4–37; O2SAT 94–97; BMI 27.6
[2024-10-18 10:07] LABS: Glucose Point of Care > 600 mg/dL (70-110)
--- NOTE | 2024-10-18 10:07 | ED_ITS ---
HPI - Seizure 2 General: Chief Complaint: Psychiatric Symptoms Stated Complaint: depression/ ETOH Time Seen by Provider: 10/18/24 09:59 Source: patient and EMS Mode of arrival: EMS Limitations: no limitations History of Present Illness: HPI Narrative: 64-year-old male who presents with EMS f or alcohol intoxication along with depression. Patient states that his and since then he has been severely depressed states he just does not want to live anymore. He states he has been drinking heavily as well. He denies any worsening improving factors does have a history of COPD along with meth abuse. He wears 2 L of oxygen at baseline. He is tearful here Associated symptoms: Deny chest pain, chills or fever(s) Related Data Home Medications Medication Instructions Recorded Confirmed gabapentin 300 mg capsule 300 mg PO TID 11/15/22 10/18/24 amlodipine 10 mg tablet 10 mg PO DAILY 06/14/23 10/18/24 [id number]-omzmhixbydpxu-ppsveizv 250 1 tab PO Q6H PRN Headache 06/14/23 10/18/24 mg-250 mg-65 mg tablet (Excedrin Migraine) ibuprofen 200 mg tablet 600 mg PO Q6H PRN Pain 06/14/23 10/18/24 multivitamin 1 tab PO DAILY 06/14/23 10/18/24 amitriptyline 75 mg tablet 75 mg PO BEDTIME 10/18/24 10/18/24 tamsulosin 0.4 mg capsule 0.4 mg PO QPM 10/18/24 10/18/24 Previous Rx's Medication Instructions Recorded albuterol sulfate 90 mcg/actuation 2 inh inhalation Q4H PRN shortness 01/20/24 aerosol inhaler of breath or wheezing #6.7 grams pantoprazole 40 mg tablet,delayed 40 mg PO DAILY #60 tabs 05/25/24 release (Protonix) Allergies Allergy/AdvReac Type Severity Reaction Status Date / Time diphenhydramine Allergy Unknown Unknown Verified 01/17/23 18:45 [From Benadryl] menthol Allergy Unknown Unknown Verified 01/17/23 18:45 Review of Systems 2 Const: Denies: fever(s), chills, body aches or change in appetite ENMT: Denies: throat pain or dental pain Card: Denies: chest pain Resp: Denies: dyspnea GI: Denies: abdominal pain, nausea, vomiting or diarrhea Musc: Denies: neck pain or back pain Skin/Breast: Denies: rash Neuro: Denies: headache(s) Psych: Reports: depression PFSH ED 2 PFSH: Medical History COPD (chronic obstructive pulmonary disease) Methamphetamine use disorder, severe Physical Exam 2 Const: COMMON NORMALS: no acute distress, patient oriented x3 and healthy appearing HENMT: COMMON NORMALS: normocephalic and atraumatic HEAD & SCALP: n ormocephalic and atraumatic Eye: COMMON NORMALS: conjunctivae normal CONJUNCTIVA: Yes conjunctivae normal Neck/C-Spine: COMMON NORMALS: full ROM and supple Chest: COMMONS NORMALS: normal inspection of the chest Resp: COMMON NORMALS: normal respiratory effort, No retractions, No use of accessory muscles and clear to auscultation bilaterally AUSCULTATION: clear to auscultation bilaterally Cardio: COMMON NORMALS: regular rate, regular rhythm and No murmurs present (Cardio) RATE: regular rate RHYTHM: regular rhythm Extremity: COMMON NORMALS: normal to inspection and full ROM Neuro: COMMON NORMALS: patient oriented x3, moves all extremities and no focal motor deficits Psych: COMMON NORMALS: mental status grossly normal, Normal thought process present and cooperative MOOD & AFFECT: Yes depressed mood THOUGHT PROCESS: Normal thought process present Skin: COMMON NORMALS: no rashes or lesions noted and no wounds GENERAL SKIN EXAM: no rashes or lesions noted Course 2 Vital Signs: Vital signs: Vital Signs Temperature 98.6 F 10/18/24 09:58 Pulse Rate 117 H 10/18/24 16:00 Respiratory Rate 18 10/18/24 12:42 Blood Pressure 146/91 10/18/24 16:00 Pulse Oximetry 95 10/18/24 16:00 Oxygen Delivery Me thod Nasal Cannula 10/18/24 09:58 Oxygen Flow Rate 2 10/18/24 09:58 MDM - Seizure MDM Narrative Medical decision making narrative: Patient presents here with suicidal ideations he is also hyperglycemic his glucose here is improved he is under 96-hour hold I spoke to the psychiatrist will admit to the Neuropsych Unit. Lab Data 10/18/24 10:14 10/18/24 10:14 Labs: Laboratory Results WBC 7.87 10^3/uL (3.29-11.43) 10/18/24 10:14 RBC 5.41 10^6/uL (3.85-5.65) 10/18/24 10:14 Hgb 16.10 g/dL (11.27-16.99) 10/18/24 10:14 Hct 51.2 % (37-53) 10/18/24 10:14 MCV 94.6 fl (82-101) 10/18/24 10:14 MCH 29.8 pg (27-33) 10/18/24 10:14 MCHC 31.4 g/dL (30-55) 10/18/24 10:14 RDW 13.7 % (12.1-15.1) 10/18/24 10:14 Plt Count 267 10^3/cmm (157-399) 10/18/24 10:14 MPV 10.3 fL (7.4-10.4) 10/18/24 10:14 Neut % (Auto) 67.2 % 10/18/24 10:14 Lymph % (Auto) 23.0 % 10/18/24 10:14 [place] % (Auto) 6.6 % 10/18/24 10:14 Eos % (Auto) 1.8 % 10/18/24 10:14 Baso % (Auto) 1.0 % 10/18/24 10:14 Neut # (Auto) 5.29 10^3/uL (1.8-7.7) 10/18/24 10:14 Lymph # (Auto) 1.8 10^3/uL (0.8-4.8) 10/18/24 10:14 [place] # (Auto) 0.5 10^3/uL (0.2-0.9) 10/18/24 10:14 Eos # (Auto) 0.1 10^3/uL (0.0-0.8) 10/18/24 10:14 Baso # (Auto) 0.1 10^3/uL (0.0-0.1) 10/18/24 10:14 Nucleated RBC % (auto) 0 % 10/18/24 10:14 Nucleated RBCs # 0.0 /100WBC 10/18/24 10:14 Specimen Type Arterial 10/18/24 11:11 Sample Site Radial, right 10/18/24 11:11 ABG pH 7.39 (7.35-7.45) 10/18/24 11:11 ABG pCO2 43.5 mmHg (35-45) 10/18/24 11:11 ABG pO2 74.5 mmHg (80.0-100.0) L 10/18/24 11:11 ABG PO2/FiO2 Ratio 266 10/18/24 11:11 ABG HCO3 26.4 mmol/L (22-26) H 10/18/24 11:11 ABG Base Excess 1.0 mmol/L (-2.0-2.0) 10/18/24 11:11 [place] Test Pos 10/18/24 11:11 Hematocrit 48.0 % (42-52) 10/18/24 11:11 O2 Delivery Device Nc 10/18/24 11:11 O2 Liters/Min 2.0 % 10/18/24 11:11 FiO2 28.0 % 10/18/24 11:11 Public Policy Coordinator ID Amh 10/18/24 11:11 Sodium 126 mmol/L (136-145) L 10/18/24 10:14 Potassium 4.9 mmol/L (3.5-5.1) 10/18/24 10:14 Chloride 86 mmol/L (98-107) L 10/18/24 10:14 Carbon Dioxide 19 mmol/L (22-29) L 10/18/24 10:14 Anion Gap 25.9 (5-19) H 10/18/24 10:14 BUN 15 mg/dL (8-23) 10/18/24 10:14 Creatinine 0.7 mg/dL (0.7-1.2) 10/18/24 10:14 GFR Calculation 114.3 mL/min (90-130) 10/18/24 10:14 Glucose 678 mg/dL (65-115) H* 10/18/24 10:14 POC Glucose 291 mg/dL (70-110) H 10/18/24 14:42 Calculated Osmolality 295 mOsm/kg (285-295) 10/18/24 10:14 Calcium 9.0 mg/dL (8.5-10.5) 10/18/24 10:14 Total Bilirubin 0.6 mg/dL (0.15-1.2) 10/18/24 10:14 AST 152 U/L (0-40) H 10/18/24 10:14 ALT 112 U/L (0-41) H 10/18/24 10:14 Alkaline Phosphatase 206 U/L (40-130) H 10/18/24 10:14 Total Protein 7.3 g/dL (6.6-8.7) 10/18/24 10:14 Albumin 4.0 g/dL (3.5-5.2) 10/18/24 10:14 Globulin 3.3 g/dL (1.3-4.6) 10/18/24 10:14 Salicylates < 0.3 mg/dL (3-10) L 10/18/24 10:14 Urine Opiates Screen Negative ng/mL (Negative) 10/18/24 10:52 Acetaminophen < 5.0 ug/mL (10-30) L 10/18/24 10:14 Ur Barbiturates Screen Negative ng/mL (Negative) 10/18/24 10:52 Ur Phencyclidine Scrn Negative ng/mL (Negative) 10/18/24 10:52 Ur Amphetamines Screen Negative ng/mL (Negative) 10/18/24 10:52 U Benzodiazepines Scrn Negative ng/mL (Negative) 10/18/24 10:52 Urine Cocaine Screen Negative ng/mL (Negative) 10/18/24 10:52 U Marijuana (THC) Screen Negative ng/mL (Negative) 10/18/24 10:52 Ethyl Alcohol 234 mg/dL (0-10) H 10/18/24 10:14 No radiology studies performed this visit Discharge Plan Discharge Patient Disposition: Admitted As Inpatient Admit Provider: Jimmy Lee Clinical Impression: Suicidal ideation, Hyperglycemia Condition: Stable Coding Level of Care Code ED Milking Worker for Marisela Mclaughlin
[2024-10-18 10:21] LABS: Basophils # 0.1 10^3/uL (0.0-0.1); Eosinophils # 0.1 10^3/uL (0.0-0.8); Eosinophils % 1.8 %; Hematocrit 51.2 % (37-53); Lymphocytes # 1.8 10^3/uL (0.8-4.8); Mean Corpuscular HGB Conc 31.4 g/dL (30-55); Mean Corpuscular Hemoglobin 29.8 pg (27-33); Mean Corpuscular Volume 94.6 fl (82-101); Mean Platelet Volume 10.3 fL (7.4-10.4); Monocytes # 0.5 10^3/uL (0.2-0.9); Monocytes % 6.6 %; Neutrophils # 5.29 10^3/uL (1.8-7.7); Neutrophils % 67.2 %; Nucleated Red Blood Cells % 0 %; Platelet Count 267 10^3/cmm (157-399); Red Blood Count 5.41 10^6/uL (3.85-5.65); Red Cell Distribution Width 13.7 % (12.1-15.1); White Blood Count 7.87 10^3/uL (3.29-11.43)
[2024-10-18 10:45] LABS: Alanine Aminotransferase 112 U/L (0-41); Alcohol Level 234 mg/dL (0-10); Alkaline Phosphatase 206 U/L (40-130); Aspartate Amino Transferase 152 U/L (0-40); Blood Urea Nitrogen 15 mg/dL (8-23); Carbon Dioxide 19 mmol/L (22-29); Chloride 86 mmol/L (98-107); Creatinine Clr Calc Pharmacy 110.7984; Globulin 3.3 g/dL (1.3-4.6); Glomerular Filtration Rate 114.3 mL/min (90-130); Osmolality Calculated 295 mOsm/kg (285-295); Sodium 126 mmol/L (136-145); Total Bilirubin 0.6 mg/dL (0.15-1.2); Total Protein 7.3 g/dL (6.6-8.7)
[2024-10-18 10:47] LABS: Acetaminophen < 5.0 ug/mL (10-30); Salicylate < 0.3 mg/dL (3-10)
[2024-10-18 10:48] LABS: Anion Gap 25.9 (5-19); Glucose 678 mg/dL (65-115); Potassium 4.9 mmol/L (3.5-5.1)
[2024-10-18] MEDS: thiamine 100 mg/mL 2mL SDV IVP (11:11)
[2024-10-18] MEDS: insulin regular-human 100 units/1 mL 10 UNIT IVP ×2 (11:11→12:36)
[2024-10-18 11:20] LABS: Amphetamines Screen Urine Negative (Negative); Barbiturates Screen Urine Negative (Negative); Benzodiazepines Screen Urine Negative (Negative); Cocaine Screen Urine Negative (Negative); Opiate Screen Urine Negative (Negative); PCP Screen Urine Negative (Negative); THC Screen Urine Negative (Negative)
[2024-10-18 11:22] LABS: ABG PCO2 43.5 mmHg (35-45); ABG PH Result 7.39 (7.35-7.45); Blood Gas Allen Test Pos; Blood Gas Operator Identificat AMH; Blood Gas Sample Site Radial, right; Blood Gas Sample Type Arterial; HCO3 ABG 26.4 mmol/L (22-26); Oxygen Device NC; PO2 ABG 74.5 mmHg (80.0-100.0); PO2 FiO2 Ratio Arterial Blood 266
[2024-10-18 12:13] LABS: Glucose Point of Care 410 mg/dL (70-110)
[2024-10-18 13:29] LABS: Glucose Point of Care 292 mg/dL (70-110)
[2024-10-18 14:44] LABS: Glucose Point of Care 291 mg/dL (70-110)
[2024-10-18] MEDS: LORazepam 2 mg Tablet PO ×2 (16:39→20:48)
[2024-10-18] MEDS: acetaminophen 325 mg Tablet 650 MG PO (16:39)
--- NOTE | 2024-10-18 16:48 | PC.NURSE ---
96 hour hold rights read to patient in ER 9. Patient verbalized understanding.
[2024-10-18 16:51] LABS: Glucose Point of Care 364 mg/dL (70-110)
--- NOTE | 2024-10-18 17:17 | PC.NURSE ---
CIWA Per CIWA, patient scored 12, ativan 2mg PO given.
--- NOTE | 2024-10-18 17:37 | PC.NURSE ---
Patient is here on a 96 hour hold for depression and suicidal thoughts with no plan. Patient drinks daily, one to two sleeves of shooters each day, daily since March when his of 24 years . Patient states that he has COPD and is on 2L of oxygen, nasal cannula. Patient reports that he wants to get placed into a [facility]. Patient fell on . Patient broke his left great toe one week ago after he kicked an oxygen tank by accident. Patient lives alone. Patient is on probation for indecent exposure.
--- NOTE | 2024-10-18 17:55 | ECG_ITS ---
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1960 Requested By: Augustus Wood Order Number: [id number] Reading MD: ZOE LIRIANO Measurements Intervals [place] Rate: 120 P: 48 DC: 190 QRS: 49 QRSD: 93 T: 69 QT: 415 QTc: 588 Interpretive Statements SINUS TACHYCARDIA LOW QRS VOLTAGE IN PRECORDIAL LEADS [QRS DEFLECTION < 1.0 mV IN CHEST LEADS] SEPTAL MYOCARDIAL INFARCTION , OF INDETERMINATE AGE [40+ ms Q WAVE IN V1/V2] Compared to ECG 05/25/2024 11:17:41 Low QRS voltage now present Myocardial infarct finding now present T-wave abnormality no longer present Electronically Signed On 10-18-2024 18:37:29 SHOE STITCHER ODD by ZOE LIRIANO [id number]
--- NOTE | 2024-10-18 18:05 | XRR_ITS ---
PROCEDURE INFORMATION: Exam: XR Left Foot Exam date and time: 10/18/2024 7:19 PM Age: 64 years old Clinical indication: Foot; Left; Patient HX: Pain to lt great toe after dropping oxygen tank onto it x 1 week ago; Wheezing; Tachycardia; Alcohol withdrawal TECHNIQUE: Imaging protocol: Radiologic exam of the left foot. Views: 3 or more views. COMPARISON: No relevant prior studies available. FINDINGS: Bones/joints: Acute comminuted minimally displaced fracture of the proximal phalanx great toe. Tarsometatarsal alignment is maintained. Pes cavus. Soft tissues: Soft tissue edema. XR/XR foot LT min 3V* [id number] IMPRESSION: 1. Acute comminuted minimally displaced fracture of the proximal phalanx great toe.
--- NOTE | 2024-10-18 18:05 | XRR_ITS ---
PROCEDURE INFORMATION: Exam: XR Chest Exam date and time: 10/18/2024 7:19 PM Age: 64 years old Clinical indication: Shortness of breath; Patient HX: Pain to lt great toe after dropping oxygen tank onto it x 1 week ago; Wheezing; Tachycardia; Alcohol withdrawal TECHNIQUE: Imaging protocol: Radiologic exam of the chest. Views: 1 view. COMPARISON: CR XR chest 1V portable [id number] 05/25/2024 9:28 AM FINDINGS: Lungs: No focal consolidation. Emphysematous changes. Pleural spaces: No evidence of pneumothorax. No evidence of pleural effusion. Heart/Mediastinum: Cardiomediastinal silhouette is within normal limits. Bones/joints: No evidence of acute osseous abnormality. XR/XR chest 1V portable [id number] IMPRESSION: 1. No acute cardiopulmonary abnormality.
--- NOTE | 2024-10-18 18:07 | P.CONIM_ITS ---
Providers/Reason For Consult 2 Consulting Physician/Specialty*: Psychiatry Reason for Consult*: Hyperglycemia, alcohol withdrawal, transaminitis, left foot pain, wheezing, tachycardia Attending Physician: Jimmy Lee MD Primary Care Provider: Katina Mata History of Present Illness History of Present Illness Amado Lawson is a 64 year old male with a past medical history of COPD, type 2 diabetes mellitus, COPD, history of alcoholism, depression who presents [facility] for concern for suicidal ideation. Patient reports that his last drink of alcohol was this morning at 6 AM he had 4 shots of alcohol. He reports that for his type 2 diabetes mellitus he takes insulin shots he takes 10 units of 6 he thinks Lantus or Levemir daily but is not exactly sure he did not take his insulin this morning. He does report history of CAD but denies any active chest pain. He tells me that about a week ago he fell with an oxygen tank on his left foot he saw one of the emergency room providers Dr. Weeks in [facility] he was told he had a fracture he had to put on the boot, he is currently wearing it continues to have pain in his foot, he is supposed to follow-up with orthopedic physician as outpatient. He does report a history of pancreatitis currently abdomen is a bit distended, denies any abdominal pain, no nausea, vomiting. He is going through severe withdrawals currently, tachycardia, diffuse shakes, feeling anxious, no nausea, vomiting, in the emergency room he is documented on 2 L, denies any oxygen use at home, does have COPD, does have wheezing on examination. Review of Systems 2 Const: Denies: fever(s) or chills Card: Denies: chest pain Resp: Denies: dyspnea GI: Denies: abdominal pain or nausea Medications/Allergies Home Medications Medication Instructions Recorded Confirmed Last Taken Type gabapentin 300 mg capsule 300 mg PO TID 11/15/22 10/18/24 06/13/23 History amlodipine 10 mg tablet 10 mg PO DAILY 06/14/23 10/18/24 10/18/24 History vfjlphc-hjaljsvzgmeap-dtrjqogd 250 1 tab PO Q6H PRN Headache 06/14/23 10/18/24 Unknown History mg-250 mg-65 mg tablet (Excedrin Migraine) ibuprofen 200 mg tablet 600 mg PO Q6H PRN Pain 06/14/23 10/18/24 Unknown History multivitamin 1 tab PO DAILY 06/14/23 10/18/24 10/18/24 History albuterol sulfate 90 mcg/actuation 2 inh inhalation Q4H PRN shortness 01/20/24 10/18/24 10/17/24 Rx aerosol inhaler of breath or wheezing #6.7 grams pantoprazole 40 mg tablet,delayed 40 mg PO DAILY #60 tabs 05/25/24 10/18/24 10/18/24 Rx release (Protonix) amitriptyline 75 mg tablet 75 mg PO BEDTIME 10/18/24 10/18/24 10/17/24 History tamsulosin 0.4 mg capsule 0.4 mg PO QPM 10/18/24 10/18/24 10/17/24 History Allergies Allergy/AdvReac Type Severity Reaction Status Date / Time diphenhydramine Allergy Unknown Unknown Verified 01/17/23 18:45 [From Benadryl] menthol Allergy Unknown Unknown Verified 01/17/23 18:45 Current Medications Generic Name Dose Route Start Last Admin Trade Name Freq PRN Reason Stop Dose Admin Acetaminophen 650 mg 10/18/24 16:16 10/18/24 16:39 Acetaminophen 325 Mg Tablet PO 650 mg Q4H PRN Administration MILD PAIN Lorazepam 2 mg 10/18/24 16:22 10/18/24 16:39 Lorazepam 2 Mg Tablet PO 2 mg PROTOCOL PRN Administration WITHDRAWAL Protocol PFSH Acute 2 PFSH: Medical History (Updated 10/18/24 @ 18:11 by Augustus Wood MD) COPD (chronic obstructive pulmonary disease) Methamphetamine use disorder, severe Surgical History (Updated 10/18/24 @ 18:10 by Augustus Wood MD) History of appendectomy Social History (Updated 10/18/24 @ 18:10 by Augustus Wood MD) Alcohol intake: current Substance/Drug Use: never Vitals/I&O/Wt Last Vital Signs Temp 97.6 F 10/18/24 16:16 Pulse 122 H 10/18/24 17:57 Resp 28 H 10/18/24 17:57 BP 134/92 10/18/24 17:57 Pulse Ox 95 10/18/24 17:57 O2 Del Method Nasal Cannula 10/18/24 17:57 O2 Flow Rate 2 10/18/24 17:57 Weight last 48 hrs Weight 79.832 kg Physical Exam 2 Const: COMMON NORMALS: no acute distress and patient oriented x3 HENMT: COMMON NORMALS: normocephalic HEAD & SCALP: normocephalic Eye: COMMON NORMALS: Equal, round and reactive pupils present and EOMs intact bilaterally PUPIL: Yes Equal, round and reactive pupils present Resp: COMMON NORMALS: normal respiratory effort, No retractions and No use of accessory muscles OTHER: Wheezing lower lung paulino Cardio: COMMON NORMALS: regular rhythm, S1 normal heart sound present and S2 normal heart sound present RATE: tachycardic RHYTHM: regular rhythm H EART SOUNDS: S1 normal heart sound present and S2 normal heart sound present Extremity: COMMON NORMALS: no pedal edema NARRATIVE EXTREMITY EXAM: Bilateral DP PT pulses palpable, left lower extremity, bruising along the lateral surface of foot Neuro: COMMON NORMALS: patient oriented x3, CN's II-XII intact bilaterally and moves all extremities OTHER: Tachycardic, diffuse tremors, reports feeling anxious, reports feeling nauseous Psych: COMMON NORMALS: mental status grossly normal Data 10/18/24 10:14 10/18/24 10:14 A&P Assessment and plan (1) Hyperglycemia: (2) Transaminitis: (3) Increased anion gap metabolic acidosis: (4) Left foot pain: (5) Alcohol withdrawal: Plan Alcohol withdrawal -Having moderate alcohol withdrawal symptoms -Continue CIWA protocol -Placed on scheduled Librium 50 every 6 hours -Continue thiamine, folic acid Increased anion gap metabolic acidosis -Check ketones, CMP, CPK, A1c -For now continue moderate dose sliding scale -10 units Lantus -Monitor blood sugars closely -If anion gap is prolonged, ketones positive, blood sugars are elevated he might need to be moved to the ICU for insulin drip for concerns were DKA or HHS Transaminitis likely from alcoholism -Likely from alcoholism -Check lipase, GGT, acute hep panel, HIV Left foot pain with history of fracture -X-ray left foot Wheezing -Chest x-ray Tachycardia with history of CAD -Likely alcohol withdrawal -Check EKG Consult Attestations 2 Medical Necessity Statement: Patient requires hospitalization, currently in alcohol withdrawal, hyperglycemia, increased anion gap metabolic acidosis, left foot pain Diagnoses Hyperglycemia R73.9 Transaminitis R74.01 Increased anion gap metabolic acidosis E87.29 Left foot pain M79.672 Alcohol withdrawal F10.939
[2024-10-18] MEDS: insulin lispro 100 unit/1 mL SUBCUT ×2 (18:37→20:57)
[2024-10-18] MEDS: chlordiazePOXIDE 25 mg Capsule 50 MG PO (18:38)
[2024-10-18 19:21] LABS: Estmated Average Glucose 255; Hemoglobin A1C 10.5 % (4.0-6.0)
[2024-10-18] MEDS: insulin glargine 100 units/1 mL 10 UNIT SUBCUT (19:31)
[2024-10-18 19:38] LABS: Alanine Aminotransferase 105 U/L (0-41); Alkaline Phosphatase 181 U/L (40-130); Blood Urea Nitrogen 18 mg/dL (8-23); Calcium 9.2 mg/dL (8.5-10.5); Carbon Dioxide 23 mmol/L (22-29); Chloride 85 mmol/L (98-107); Chol HDL Ratio 3.78 mg/dL (1.0-5.00); Cholesterol 170 mg/dL (0-200); Creatine Phosphokinase 101 U/L (39-308); Creatinine Clr Calc Pharmacy 96.9486; Gamma Glutamyl Transferase 648 U/L (8-61); Globulin 3.3 g/dL (1.3-4.6); Glucose 448 mg/dL (65-115); HDL Cholesterol 45 mg/dL (60-100); LDL Cholesterol Calculated 57 mg/dL (50-129); LDL HDL Ratio 1.27 RATIO (0.00-3.22); Lipase 71 U/L (13-60); NT Pro B Type Natriuretic Pept 124 pg/mL (0-125); Osmolality Calculated 275 mOsm/kg (285-295); Sodium 122 mmol/L (136-145); Total Bilirubin 0.8 mg/dL (0.15-1.2); Total Protein 7.3 g/dL (6.6-8.7); Triglycerides 342 mg/dL (0-150)
[2024-10-18 19:39] LABS: Anion Gap 18.7 (5-19); Aspartate Amino Transferase 113 U/L (0-40); Potassium 4.7 mmol/L (3.5-5.1)
[2024-10-18 19:53] LABS: Troponin(5th) Baseline 15 ng/L (0-15)
[2024-10-18 19:57] LABS: HIV 1 & 2 Antibody Non-Reactive (Non-Reactiv); HIV 1 & 2 Antigen Non-Reactive (Non-Reactiv)
[2024-10-18 20:00] LABS: Hepatitis A Antibody IgM Non-Reactive (Nonreactive); Hepatitis B Core IgM Non-Reactive (Nonreactive); Hepatitis B Surface Antigen Non-Reactive (Nonreactive); Hepatitis C Virus Antibody Reactive (Nonreactive)
[2024-10-18 20:03] LABS: Glucose Point of Care 374 mg/dL (70-110)
[2024-10-18 20:03] LABS: Ketone (Acetest) Serum Negative (Negative)
[2024-10-18] MEDS: amitriptyline 25 mg Tablet 75 MG PO (20:48)
[2024-10-18] MEDS: gabapentin 400 mg Capsule PO (20:48)
[2024-10-18] MEDS: ibuprofen 600 mg Tablet PO (20:49)
[2024-10-18 21:06] LABS: Troponin 5 2HR 15.57 ng/L (0-15); Troponin 5 2HR Delta 0.57 ABS# (0-10)
[2024-10-18] MEDS: ipratropium-albuterol 3 mL Neb INHALATION (21:10)
[2024-10-19] VITALS (15 sets, daily range): BP systolic 111–136; BP diastolic 77–87; PULSE 96–121; RESP 18–24; TEMP 36.4–36.8; O2SAT 95–99
[2024-10-19] MEDS: chlordiazePOXIDE 25 mg Capsule 50 MG PO ×4 (00:04→17:34)
[2024-10-19 00:07] LABS: Glucose Point of Care 83 mg/dL (70-110)
[2024-10-19] MEDS: ipratropium-albuterol 3 mL Neb INHALATION ×6 (00:30→23:17)
--- NOTE | 2024-10-19 00:56 | ECG_ITS ---
[facility] Date: 2024-10-19 Pat Name: Amado Lawson Department: Room: 150 Gender: Male Sales Support Representative: : 1960 Requested By: Augustus Wood Order Number: [id number] Reading MD: ZOE LIRIANO Measurements Intervals [place] Rate: 113 P: 51 WI: 157 QRS: 40 QRSD: 101 T: 70 QT: 322 QTc: 443 Interpretive Statements SINUS TACHYCARDIA LOW QRS VOLTAGE IN PRECORDIAL LEADS [QRS DEFLECTION < 1.0 mV IN CHEST LEADS] NONSPECIFIC T-WAVE ABNORMALITY ABNORMAL RHYTHM ECG Compared to ECG 10/18/2024 18:07:16 T-wave abnormality now present Myocardial infarct finding no longer present Electronically Signed On 10-27-2024 23:32:59 SENIOR IT SPECIALIST by ZOE LIRIANO [id number]
[2024-10-19 01:02] LABS: Glucose Point of Care 137 mg/dL (70-110)
[2024-10-19 01:39] LABS: Troponin 5 6HR 12.92 ng/L (0-15)
[2024-10-19 01:40] LABS: Troponin 5 6HR Delta -2.08 ng/L (0-12)
[2024-10-19 01:43] LABS: Alanine Aminotransferase 90 U/L (0-41); Albumin Level 3.7 g/dL (3.5-5.2); Alkaline Phosphatase 167 U/L (40-130); Aspartate Amino Transferase 142 U/L (0-40); Blood Urea Nitrogen 19 mg/dL (8-23); Calcium 8.9 mg/dL (8.5-10.5); Carbon Dioxide 26 mmol/L (22-29); Chloride 90 mmol/L (98-107); Creatinine Clr Calc Pharmacy 97.1945; Globulin 2.2 g/dL (1.3-4.6); Glucose 166 mg/dL (65-115); Osmolality Calculated 274 mOsm/kg (285-295); Sodium 129 mmol/L (136-145); Total Bilirubin 0.9 mg/dL (0.15-1.2); Total Protein 5.9 g/dL (6.6-8.7)
[2024-10-19 01:44] LABS: Anion Gap 16.8 (5-19); Potassium 3.8 mmol/L (3.5-5.1)
[2024-10-19] MEDS: acetaminophen 325 mg Tablet 650 MG PO ×2 (06:15→20:33)
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
[2024-10-19 08:07] LABS: Glucose Point of Care 249 mg/dL (70-110)
[2024-10-19] MEDS: insulin lispro 100 unit/1 mL SUBCUT ×4 (08:12→20:34)
[2024-10-19] MEDS: folic acid 1 mg Tablet PO (08:13)
[2024-10-19] MEDS: multivitamin therapeutic Tablet 1 TAB PO (08:13)
[2024-10-19] MEDS: thiamine 100 mg Tablet PO (08:13)
[2024-10-19] MEDS: nicotine 4 mg lozenge MUCOUS MEM (08:14)
[2024-10-19] MEDS: pantoprazole DR 40 mg Tablet PO (08:14)
[2024-10-19] MEDS: gabapentin 400 mg Capsule PO ×3 (08:14→20:34)
[2024-10-19] MEDS: amlodipine 10 mg Tablet PO (08:14)
[2024-10-19 08:48] LABS: Bilirubin Urine Negative (Negative); Blood Urine Negative (Negative); Glucose Urine UA 3+ (Normal); Ketones Urine Negative (Negative); Leukocyte Esterase Urine Negative (Negative); Nitrate Urine Negative (Negative); Protein Urine Negative (Negative); Urine Appearance Clear (CLEAR); Urine Color Yellow (Yellow); Urobilinogen Urine 0.2 mg/dL (Negative); pH Urine 5.5 (5-7)
[2024-10-19 08:53] LABS: Add Urine Microscopic? YES; Bacteria Urine None Seen /hpf; Hyaline Casts Urine 0-4 /lpf; RBC Urine 0-2 /hpf (0-2); Squamous Epithelial Cell Urine 0-5 /hpf (0-5); WBC Urine 0-5 /hpf (0-5)
[2024-10-19 08:56] LABS: Specific Gravity, Urine 1.041 (1.005-1.030)
[2024-10-19 09:09] LABS: UA Slide Review UA Slide Review Perf
[2024-10-19] MEDS: ibuprofen 600 mg Tablet PO ×2 (11:09→16:17)
[2024-10-19 11:40] LABS: Glucose Point of Care 255 mg/dL (70-110)
--- NOTE | 2024-10-19 14:35 | P.PN_ITS ---
Subjective 2 Subjective: Patient was seen this morning, he is alert to person, to place, not to time, still has mild to moderate tremors, no fevers, no chills, no cough no abdominal pain complaints he is currently on 2 L Vitals/I&O/Wt Last Vital Signs Temp 97.5 F L 10/19/24 04:00 Pulse 101 H 10/19/24 11:54 Resp 18 10/19/24 11:54 BP 111/77 10/19/24 11:54 Pulse Ox 97 10/19/24 11:54 O2 Del Method Nasal Cannula 10/19/24 11:45 O2 Flow Rate 2 10/19/24 11:45 10/18/24 10/19/24 10/19/24 22:59 06:59 14:59 Intake Total 120 / 120 Balance 120 / 120 Weight last 48 hrs Weight 80.286 kg Weight 79.832 kg Physical Exam 2 Const: COMMON NORMALS: no acute distress ORIENTATION/CONSCIOUSNESS: Yes awake, Yes oriented to person and Yes oriented to place Resp: COMMON NORMALS: normal respiratory effort, No retractions, No use of accessory muscles and clear to auscultation bilaterally AUSCULTATION: clear to auscultation bilaterally Cardio: COMMON NORMALS: regular rhythm, S1 normal heart sound present and S2 normal heart sound present RATE: tachycardic RHYTHM: regular rhythm H EART SOUNDS: S1 normal heart sound present and S2 normal heart sound present GI: COMMON NORMALS: Normal to inspection, nondistended, normoactive bowel sounds present and non-tender Extremity: COMMON NORMALS: no pedal edema Neuro: SENSORIUM/ORIENTATION: Yes oriented to person and Yes oriented to place Psych: COMMON NORMALS: mental status grossly normal Data 10/18/24 10:14 10/19/24 00:54 A&P Assessment and plan (1) Hyperglycemia: (2) Transaminitis: (3) Increased anion gap metabolic acidosis: (4) Left foot pain: (5) Alcohol withdrawal: (6) Hepatitis C antibody positive in blood: Plan Alcohol withdrawal -Having moderate alcohol withdrawal symptoms -Continue CIWA protocol -Placed on scheduled Librium 50 every 6 hours -Continue thiamine, folic acid Increased anion gap metabolic acidosis -Ketones negative, anion gap 16 -For now continue moderate dose sliding scale -10 units Lantus -Monitor blood sugars closely Transaminitis likely from alcoholism -Likely from alcoholism Hepatitis C antibody positive, follow-up hepatitis C RNA Left foot pain with history of fracture -X-ray left foot 1. Acute comminuted minimally displaced fracture of the proximal phalanx great toe. -Spoke to orthopedics, keep left foot in a boot, pain control Wheezing -Chest x-ray Tachycardia with history of CAD -Likely alcohol withdrawal Attestations 2 Medical Necessity Statement*: Patient requires hospitalization for alcohol withdrawal, hyperglycemia, Diagnoses Hyperglycemia R73.9 Transaminitis R74.01 Increased anion gap metabolic acidosis E87.29 Left foot pain M79.672 Alcohol withdrawal F10.939 Hepatitis C antibody positive in blood R76.8
[2024-10-19] MEDS: insulin glargine 100 units/1 mL 10 UNIT SUBCUT (15:42)
[2024-10-19 16:53] LABS: Glucose Point of Care 309 mg/dL (70-110)
[2024-10-19] MEDS: tamsulosin 0.4 mg Capsule PO (17:34)
[2024-10-19 19:17] LABS: Glucose Point of Care 297 mg/dL (70-110)
[2024-10-19] MEDS: amitriptyline 25 mg Tablet 75 MG PO (20:34)
[2024-10-20] VITALS (17 sets, daily range): BP systolic 103–130; BP diastolic 71–85; PULSE 101–111; RESP 16–24; TEMP 36.3–37.3; O2SAT 94–98
[2024-10-20] MEDS: chlordiazePOXIDE 25 mg Capsule 50 MG PO ×3 (00:03→11:54)
[2024-10-20 00:55] LABS: Glucose Point of Care 320 mg/dL (70-110)
--- NOTE | 2024-10-20 01:05 | PC.NURSE ---
At approximately 0045 pt told this nurse that he was having double vision. Blood Glucose was taken by Ashlie GALO and BS was 320. Dr. Lee was notified and a one time order for 12 units of Humalog was ordered at this time. 12 units of Humalog was given in the pts right deltoid at 0125. Pt tolerated well.
[2024-10-20] MEDS: insulin lispro 100 unit/1 mL 12 UNIT SUBCUT (01:19)
[2024-10-20 02:54] LABS: Glucose Point of Care 148 mg/dL (70-110)
[2024-10-20] MEDS: albuterol 2.5 mg/3 mL Neb INHALATION (03:01)
--- NOTE | 2024-10-20 03:02 | CTR_ITS ---
PROCEDURE INFORMATION: Exam: CTA Chest With Contrast Exam date and time: 10/20/2024 4:04 AM Age: 64 years old Clinical indication: Shortness of breath; Patient HX: SOB with hypoxia TECHNIQUE: Imaging protocol: Computed tomographic angiography of the chest with contrast. Exam focused on the arteries. 3D rendering (Not supervised by radiologist): MIP and/or 3D reconstructed images were created by the technologist. Radiation optimization: All CT scans at this facility use at least one of these dose optimization techniques: automated exposure control; mA and/or kV adjustment per patient size (includes targeted exams where dose is matched to clinical indication); or iterative reconstruction. Contrast material: OMNI 350; Contrast volume: 65 ml; Contrast route: INTRAVENOUS (IV); COMPARISON: CR XR chest 1V portable [id number] 10/18/2024 7:19 PM RADIATION DOSE METRICS: Total DLP (mGy-cm): 426.4 FINDINGS: Pulmonary arteries: Normal. No pulmonary emboli. Aorta: The thoracic aorta is normal in caliber without aneurysm or dissection. There is calcified plaque involving the aorta and coronary vessels. Lungs: There are linear opacities bilaterally involving the right upper lobe, right middle lobe, lingula and both lower lobes. Findings may reflect atelectasis, scarring or a combination of both. No definite lung nodules or masses are appreciated. No consolidation is identified. There is bronchial wall thickening involving a few lower lobe bronchi bilaterally there are 1 or 2 opacified right lower lobe bronchi. Pleural spaces: Unremarkable. No pneumothorax. No pleural effusion. Heart: The heart is enlarged. There is no evidence of a significant pericardial effusion. Lymph nodes: Unremarkable. No enlarged lymph nodes. Liver: There is diffuse fatty infiltration of the liver. The liver is otherwise normal. Bones/joints: Unremarkable. No acute fracture. Soft tissues: Unremarkable. CT/CT angio chest PE protcl [id number] IMPRESSION: 1. Linear opacities involving both lungs which may reflect atelectasis, scarring or a combination of both. 2. Mild bronchial wall thickening with a few opacified lower lobe bronchi suggesting bronchitis and/or respiratory bronchiolitis with mucous plugging and/or aspiration. 3. Fatty infiltration of the liver.
--- NOTE | 2024-10-20 03:08 | ECG_ITS ---
[facility] Date: 2024-10-20 Pat Name: Amado Lawson Department: Room: 150 Gender: Male Road Machinery Inspector: : 1960 Requested By: Linwood Sher Order Number: [id number] Reading MD: Berkley Nicolas M.D. Measurements Intervals [place] Rate: 106 P: 50 VT: 161 QRS: 50 QRSD: 94 T: 73 QT: 334 QTc: 443 Interpretive Statements SINUS TACHYCARDIA LOW QRS VOLTAGE IN PRECORDIAL LEADS [QRS DEFLECTION < 1.0 mV IN CHEST LEADS] NONSPECIFIC T-WAVE ABNORMALITY ABNORMAL RHYTHM ECG Compared to ECG 10/19/2024 00:56:44 No significant changes Electronically Signed On 10-21-2024 23:56:55 SANITARY ENGINEERING TEACHER by Berkley Nicolas M.D. [id number]
[2024-10-20 03:22] LABS: ABG PCO2 44.7 mmHg (35-45); ABG PH Result 7.42 (7.35-7.45); Arterial Blood Gas Hematocrit 42.4 % (42-52); Base Excess ABG 3.4 mmol/L (-2.0-2.0); Blood Gas Allen Test Pos; Blood Gas Operator Identificat ED; Blood Gas Sample Site Radial, right; Blood Gas Sample Type Arterial; HCO3 ABG 28.6 mmol/L (22-26); Oxygen Device NC; PO2 ABG 69.3 mmHg (80.0-100.0); PO2 FiO2 Ratio Arterial Blood 247
--- NOTE | 2024-10-20 03:29 | W.PM.EVENTAC ---
Event Note Event Note: Rapid response was called for shortness of breath and wheezing patient was put on 2 L nasal cannula, patient was tachycardic saturating 95% at the time of my evaluation On lung auscultation he does have rhonchi with crackles Complaining of chest pain midepigastric region radiating towards his left arm Blood pressure stable Afebrile Tachycardic EKG showing sinus rhythm without any ischemic or infarctive change Requested D-dimer, CTA chest, transfer to [facility] start DuoNeb treatment Continue oxygen supplementation Continue CIWA protocol Further plan will be made after reviewing CT chest report Event Notes Attestations Time Spent in Patient Care: 30mins
[2024-10-20 03:31] LABS: Basophils # 0.1 10^3/uL (0.0-0.1); Eosinophils # 0.4 10^3/uL (0.0-0.8); Eosinophils % 5.1 %; Hematocrit 42.2 % (37-53); Lymphocytes # 2.2 10^3/uL (0.8-4.8); Lymphocytes % 31.6 %; Mean Corpuscular HGB Conc 32.2 g/dL (30-55); Mean Corpuscular Volume 93.2 fl (82-101); Mean Platelet Volume 11.1 fL (7.4-10.4); Monocytes # 0.5 10^3/uL (0.2-0.9); Monocytes % 7.7 %; Neutrophils # 3.71 10^3/uL (1.8-7.7); Neutrophils % 54.2 %; Nucleated Red Blood Cells % 0 %; Platelet Count 141 10^3/cmm (157-399); Red Blood Count 4.53 10^6/uL (3.85-5.65); Red Cell Distribution Width 13.8 % (12.1-15.1); White Blood Count 6.86 10^3/uL (3.29-11.43)
--- NOTE | 2024-10-20 03:35 | PC.NURSE ---
At approximately 0245 nursing staff heard pt start gasping for air from his room. When staff entered the room pt told staff that he could not breath. Rapid response was called at 0249. Processing Tech, Security, Dr. Anders, Dr. Sher, Lab, Respiratory, an ER nurse and a CSU aid all responded to the rapid. At this time blood sugar was 148 and VS were BP 124/81, HR 110, RR 26, o2 96% on 2L of oxygen. While the pt was talking to Dr. Shen, the pt expressed that he was having chest pain that was radiating down his left arm. Pt was given albuterol at this time and an EKG was ordered and obtained. This nurse was given orders to transfer pt up to [facility]. Report was called to Gabriella at 0320 and pt was transferred off the unit at 0325 by preparation supervisor and Security. Dr. Lee and Nurse Clinical Immunologist were both notified at 0328
[2024-10-20 04:14] LABS: Alanine Aminotransferase 73 U/L (0-41); Albumin Level 3.7 g/dL (3.5-5.2); Alkaline Phosphatase 178 U/L (40-130); Anion Gap 15.8 (5-19); Aspartate Amino Transferase 95 U/L (0-40); Blood Urea Nitrogen 13 mg/dL (8-23); Calcium 8.7 mg/dL (8.5-10.5); Carbon Dioxide 27 mmol/L (22-29); Chloride 91 mmol/L (98-107); Creatinine Clr Calc Pharmacy 111.0794; Globulin 2.3 g/dL (1.3-4.6); Glomerular Filtration Rate 114.3 mL/min (90-130); Glucose 141 mg/dL (65-115); Osmolality Calculated 272 mOsm/kg (285-295); Potassium 3.8 mmol/L (3.5-5.1); Sodium 130 mmol/L (136-145); Total Bilirubin 0.7 mg/dL (0.15-1.2)
[2024-10-20 04:17] LABS: D Dimer 0.47 ug/mLFEU (0-0.59)
[2024-10-20] MEDS: iohexol 350 mg/mL 500 mL Btl (per mL) IV (04:18)
[2024-10-20 04:19] LABS: Troponin T (5th) Once 12 ng/L (0-15)
[2024-10-20 04:36] LABS: Glucose Point of Care 117 mg/dL (70-110)
[2024-10-20] MEDS: morphine 4 mg/mL SDV 1 mL 2 MG IVP ×2 (06:32→14:24)
[2024-10-20] MEDS: ipratropium-albuterol 3 mL Neb INHALATION ×4 (08:06→20:34)
[2024-10-20] MEDS: thiamine 100 mg Tablet PO (08:44)
[2024-10-20] MEDS: amlodipine 10 mg Tablet PO (08:44)
[2024-10-20] MEDS: pantoprazole DR 40 mg Tablet PO (08:44)
[2024-10-20] MEDS: multivitamin therapeutic Tablet 1 TAB PO (08:44)
[2024-10-20] MEDS: folic acid 1 mg Tablet PO (08:44)
[2024-10-20] MEDS: gabapentin 400 mg Capsule PO ×3 (08:44→21:50)
[2024-10-20] MEDS: piperacillin-tazobactam 3.375 GM in sodium chloride 0.9% (plus) 50 ML IV ×2 (08:51→16:31)
[2024-10-20] MEDS: ibuprofen 600 mg Tablet PO (08:51)
[2024-10-20 09:11] LABS: NT Pro B Type Natriuretic Pept 127 pg/mL (0-125); Procalcitonin 0.11 ng/mL (0-0.5)
[2024-10-20 09:23] LABS: C Reactive Protein 18.2 mg/L (0.0-4.9)
--- NOTE | 2024-10-20 10:57 | PICC.NOTE ---
Referred to vascular access nurse for US guided IV. Left arm assessed. 20 gauge peripheral IV started to left forearm x 1 stick using US guidance. Good blood return noted. Flushed without difficulty. Secured with venigaurd. Charge nurse notified.
[2024-10-20 11:28] LABS: Glucose Point of Care 307 mg/dL (70-110)
[2024-10-20] MEDS: insulin lispro 100 unit/1 mL SUBCUT ×3 (11:53→21:50)
[2024-10-20] MEDS: polyethylene glycol 3350 Pkt 17 gm PO (12:01)
--- NOTE | 2024-10-20 13:39 | CTR_ITS ---
PROCEDURE INFORMATION: Exam: CT Abdomen And Pelvis Without Contrast Exam date and time: 10/20/2024 7:06 PM Age: 64 years old Clinical indication: Abdominal pain; Generalized; Prior surgery; Surgery date: 6+ months; Surgery type: Gb TECHNIQUE: Imaging protocol: Computed tomography of the abdomen and pelvis without contrast. Radiation optimization: All CT scans at this facility use at least one of these dose optimization techniques: automated exposure control; mA and/or kV adjustment per patient size (includes targeted exams where dose is matched to clinical indication); or iterative reconstruction. COMPARISON: CT abdomen pelvis w con* [id number] 05/25/2024 9:49 AM RADIATION DOSE METRICS: Total DLP (mGy-cm): 800.43 FINDINGS: Lungs: Emphysematous changes. Bibasilar atelectasis. Liver: Hepatic steatosis. Gallbladder and biliary ducts: Normal. No calcified stones. No ductal dilation. Pancreas: Normal. No ductal dilation. Spleen: Normal. No splenomegaly. Adrenal glands: Normal. No mass. Kidneys and ureters: Right kidney interpolar region 13 mm and left kidney interpolar region 11 mm probable proteinaceous cysts, consider correlation with ultrasound. Left kidney interpolar region simple cyst, negative for follow-up advised. Stomach and bowel: Diverticulosis without diverticulitis. Moderate to severe constipation. Appendix: No evidence of appendicitis. Intraperitoneal space: Unremarkable. No free air. No significant fluid collection. Vasculature: Unremarkable. No abdominal aortic aneurysm. Lymph nodes: Unremarkable. No enlarged lymph nodes. Urinary bladder: Unremarkable as visualized. Reproductive: Unremarkable as visualized. Bones/joints: Unremarkable. No acute fracture. Soft tissues: Unremarkable. CT/CT abdomen pelvis wo con [id number] IMPRESSION: 1. Negative for acute inflammatory process in the abdomen or pelvis. 2. Gallbladder appears to be visualized, please correlate clinically as clinical indication appears to indicate there has been a gallbladder surgery 3. Emphysematous changes. 4. Bibasilar atelectasis. 5. Hepatic steatosis. 6. Right kidney interpolar region 13 mm and left kidney interpolar region 11 mm probable proteinaceous cysts, consider correlation with ultrasound. 7. Left kidney interpolar region simple cyst, negative for follow-up advised. 8. Diverticulosis without diverticulitis. 9. Moderate to severe constipation. COMMENTS: Consistent with the [employer]'s Incidental Findings Committee white paper (J Am Montse Radiol 2018): Any incidental renal lesion less than 1 cm or classified as too small to characterize, or any incidental cystic renal lesion characterized as simple-appearing, is likely benign. No follow-up imaging is recommended for these lesions per consensus recommendations based on imaging criteria.
--- NOTE | 2024-10-20 14:25 | P.PN_ITS ---
Subjective 2 Subjective: Patient was seen this morning, he is alert to person, to place, not to time he follows commands denies any fevers, no chills does complain of shortness of breath, does report abdominal distention, he does have a tremor of bilateral extremities, he reports a history of Parkinson's disease, but stopped taking his medications, due to adverse side effects, rapid response overnight for shortness of breath, discussed possible aspiration ammonia, continue to monitor Vitals/I&O/Wt Last Vital Signs Temp 99.1 F 10/20/24 11:35 Pulse 110 H 10/20/24 11:35 Resp 16 10/20/24 14:24 BP 112/80 10/20/24 11:35 Pulse Ox 96 10/20/24 11:35 O2 Del Method Nasal Cannula 10/20/24 11:35 O2 Flow Rate 2 10/20/24 11:23 10/19/24 10/20/24 10/20/24 22:59 06:59 14:59 Intake Total 873.958 / 873.958 Balance 873.958 / 873.958 Weight last 48 hrs Weight 80.286 kg Physical Exam 2 Const: COMMON NORMALS: no acute distress ORIENTATION/CONSCIOUSNESS: Yes awake, Yes oriented to person and Yes oriented to place Resp: COMMON NORMALS: normal respiratory effort, No retractions and No use of accessory muscles AUSCULTATION: crackles and wheezes Cardio: COMMON NORMALS: regular rate, regular rhythm, S1 normal heart sound present and S2 normal heart sound present RATE: regular rate RHYTHM: r egular rhythm HEART SOUNDS: S1 normal heart sound present and S2 normal heart sound present GI: COMMON NORMALS: Normal to inspection, nondistended, normoactive bowel sounds present and non-tender Extremity: COMMON NORMALS: no pedal edema Neuro: SENSORIUM/ORIENTATION: Yes oriented to person and Yes oriented to place Psych: COMMON NORMALS: mental status grossly normal Data 10/20/24 03:04 10/20/24 03:04 A&P Assessment and plan (1) Hyperglycemia: (2) Transaminitis: (3) Increased anion gap metabolic acidosis: (4) Left foot pain: (5) Alcohol withdrawal: (6) Hepatitis C antibody positive in blood: Plan Alcohol withdrawal -Having moderate alcohol withdrawal symptoms -Continue CIWA protocol -De-escalated to 25 mg every 6 hours -Continue thiamine, folic acid Increased anion gap metabolic acidosis -Ketones negative, anion gap 16 -For now continue moderate dose sliding scale -10 units Lantus -Monitor blood sugars closely Transaminitis likely from alcoholism -Likely from alcoholism -CT scan abdomen pelvis Hepatitis C antibody positive, follow-up hepatitis C RNA Left foot pain with history of fracture -X-ray left foot 1. Acute comminuted minimally displaced fracture of the proximal phalanx great toe. -Spoke to orthopedics, keep left foot in a boot, pain control Wheezing, shortness of breath, acute hypoxic respiratory failure secondary to aspiration pneumonia -CT angiogram CT/CT angio chest PE protcl [id number] IMPRESSION: 1. Linear opacities involving both lungs which may reflect atelectasis, scarring or a combination of both. 2. Mild bronchial wall thickening with a few opacified lower lobe bronchi suggesting bronchitis and/or respiratory bronchiolitis with mucous plugging and/or aspiration. 3. Fatty infiltration of the liver. -Concerns for aspiration, Zosyn -Respiratory viral panel ordered Tachycardia with history of CAD -Likely alcohol withdrawal Plan for today monitor respiratory status closely, antibiotics for aspiration pneumonia, DuoNeb budesonide CT scan abdomen and viral respiratory panel Attestations 2 Medical Necessity Statement*: Patient requires hospitalization for shortness of breath, acute respiratory failure dysphagia level 4 diet speech therapy eval Diagnoses Hyperglycemia R73.9 Transaminitis R74.01 Increased anion gap metabolic acidosis E87.29 Left foot pain M79.672 Alcohol withdrawal F10.939 Hepatitis C antibody positive in blood R76.8
[2024-10-20 15:14] LABS: Adenovirus Not Detected (NOT DETECT); Chlamydia Pneumoniae Not Detected (NOT DETECT); Coronavirus 229E,HKU1,NL63,OC4 Not Detected (NOT DETECT); Human Metapneumovirus Not Detected (NOT DETECT); Human Rhinovirus/Enterovirus Not Detected (NOT DETECT); Influenza A Not Detected (NOT DETECT); Influenza A H1 Not Detected (NOT DETECT); Influenza A H1-2009 Not Detected (NOT DETECT); Influenza A H3 Not Detected (NOT DETECT); Influenza B Not Detected (NOT DETECT); Mycoplasma Pneumoniae Not Detected (NOT DETECT); Parainfluenza Virus Type 1 Not Detected (NOT DETECT); Parainfluenza Virus Type 2 Not Detected (NOT DETECT); Parainfluenza Virus Type 3 Not Detected (NOT DETECT); Parainfluenza Virus Type 4 Not Detected (NOT DETECT); Respiratory Syncytial Virus A Not Detected (NOT DETECT); Respiratory Syncytial Virus B Not Detected (NOT DETECT); SARS-COV-2 Not Detected (NOT DETECT)
[2024-10-20 16:29] LABS: Glucose Point of Care 245 mg/dL (70-110)
[2024-10-20] MEDS: nicotine 21 mg Patch 1 PATCH TRANSDERMA (16:31)
[2024-10-20] MEDS: tamsulosin 0.4 mg Capsule PO (17:39)
[2024-10-20] MEDS: budesonide 0.5 mg/2 mL Neb INHALATION (20:34)
[2024-10-20 20:39] LABS: Glucose Point of Care 294 mg/dL (70-110)
--- NOTE | 2024-10-20 21:34 | P.NPUPN_ITS ---
Subjective NPU 2 Subjective: Patient is a 64-year-old white male admitted with suicidal ideation with a history of polysubstance abuse including methamphetamine use and alcohol use admitted with BAL of 234 and negative for illicit drugs. The patient had reported a history of alcohol related withdrawal symptoms. He had denied feeling suicidal today. He reported that he was having pain and requested a medication to help him with the pain in his foot. He had been transferred to the medical floor due to shortness of breath. He had denied any clear plan to discontinue his alcohol consumption despite adverse consequences.Patient had reported desire to go to a residential when he left the hospital. Mental Status Exam 2 MSE Comments: This is an overweight, older white male, appearing older than stated age with limited grooming and adequate eye contact. No abnormal involuntary motor movements except for mild psychomotor retardation and some tremulousness. He was Cooperative with exam in moderate distress. Speech was decreased in rate and volume. .Thought process was linear and organized. Thought content: patient denied suicidal or homicidal ideation. He did not appear to be responding to internal stimuli. Attention and concentration are intact and memory appeared reliable but none were formally tested. He is alert and oriented x 3. Insight and judgment are limited. Impulse control is impaired. Vitals/I&O/Wt Last Vital Signs Temp 98.8 F 10/20/24 19:47 Pulse 109 H 10/20/24 20:35 Resp 18 10/20/24 20:35 BP 123/83 10/20/24 19:47 Pulse Ox 95 10/20/24 20:35 O2 Del Method Nasal Cannula 10/20/24 20:35 O2 Flow Rate 2 10/20/24 20:35 10/20/24 10/20/24 10/20/24 06:59 14:59 22:59 Intake Total 890.000 / 890.000 480 / 1370.000 Balance 890.000 / 890.000 480 / 1370.000 Data NPU 10/20/24 03:04 10/20/24 03:04 A&P Assessment and plan (1) Acute psychosis: (2) Suicidal ideation: (3) Polysubstance abuse: (4) Methamphetamine use disorder, severe: (5) Suicidal ideation: (6) Alcohol withdrawal: (7) Depression: (8) Bereavement: Plan This is a 64year old white male who had been seen almost 2 years ago when he was reporting a history of migraines and a recent spider bite with ongoing spider bite symptoms and a long history of addiction who now presents with reports of depression and suicidality this time with a negative UDS but positive BAL. 1. Continue current medications. 2. Encourage individual, group and milieu therapy 3. Continue q-15 minute check for safety 4. Recommend sober living treatment at the highest level of care to which the patient is willing to commit. 5. Continue on CIWA. 6. Evaluate for safety against the backdrop of the 96-hour hold. Transfer back to psychiatry once stabilized medically. Involuntary Hold Information 2 96 Hour Hold: 96 Hour Involuntary Admission: Yes 96 Hour Hold Ending Date: 10/24/24 96 Hour Hold Ending Time: 12:01 Other Hold: Hold End Date: 10/24/24 Attestations NPU 2 Medical Necessity Statement*: Inpatient hospitalization is medically necessary and the clinically appropriate intervention at this time. We will monitor medications and make changes as indicated. Patient will be in the hospital for over two midnights. Likely length of stay is 2-3 days. Coding Level of Care Code Acute Code for [facility] Fwd Diagnoses Acute psychosis F23 Suicidal ideation R45.851 Polysubstance abuse F19.10 Methamphetamine use disorder, severe F15.20 Alcohol withdrawal F10.939 Depression F32.A Bereavement Z63.4
[2024-10-20] MEDS: acetaminophen 325 mg Tablet 650 MG PO (21:50)
[2024-10-20] MEDS: amitriptyline 25 mg Tablet 75 MG PO (21:50)
[2024-10-20] MEDS: chlordiazePOXIDE 25 mg Capsule PO (21:51)
[2024-10-21] VITALS (15 sets, daily range): BP systolic 119–152; BP diastolic 70–84; PULSE 72–108; RESP 17–21; TEMP 36.2–36.7; O2SAT 94–97
[2024-10-21] MEDS: ipratropium-albuterol 3 mL Neb INHALATION ×6 (00:28→20:37)
[2024-10-21] MEDS: piperacillin-tazobactam 3.375 GM in sodium chloride 0.9% (plus) 50 ML IV ×3 (02:32→17:04)
[2024-10-21] MEDS: chlordiazePOXIDE 25 mg Capsule PO ×4 (02:33→22:54)
[2024-10-21] MEDS: morphine 4 mg/mL SDV 1 mL 2 MG IVP ×2 (05:03→11:51)
[2024-10-21 06:22] LABS: Glucose Point of Care 337 mg/dL (70-110)
[2024-10-21 07:39] LABS: Basophils % 0.6 %; Eosinophils # 0.3 10^3/uL (0.0-0.8); Eosinophils % 4.9 %; Hematocrit 38.7 % (37-53); Lymphocytes # 1.6 10^3/uL (0.8-4.8); Lymphocytes % 30.8 %; Mean Corpuscular HGB Conc 32.3 g/dL (30-55); Mean Corpuscular Hemoglobin 29.9 pg (27-33); Mean Corpuscular Volume 92.6 fl (82-101); Mean Platelet Volume 11.4 fL (7.4-10.4); Monocytes # 0.5 10^3/uL (0.2-0.9); Monocytes % 9.3 %; Neutrophils # 2.83 10^3/uL (1.8-7.7); Neutrophils % 53.5 %; Nucleated Red Blood Cells % 0 %; Platelet Count 135 10^3/cmm (157-399); Red Blood Count 4.18 10^6/uL (3.85-5.65); Red Cell Distribution Width 14.2 % (12.1-15.1); White Blood Count 5.29 10^3/uL (3.29-11.43)
[2024-10-21 07:58] LABS: Anion Gap 13.1 (5-19); Blood Urea Nitrogen 10 mg/dL (8-23); Calcium 8.4 mg/dL (8.5-10.5); Carbon Dioxide 27 mmol/L (22-29); Chloride 91 mmol/L (98-107); Creatinine Clr Calc Pharmacy 129.5927; Glomerular Filtration Rate 136.5 mL/min (90-130); Glucose 292 mg/dL (65-115); Osmolality Calculated 274 mOsm/kg (285-295); Potassium 4.1 mmol/L (3.5-5.1); Sodium 127 mmol/L (136-145)
[2024-10-21] MEDS: budesonide 0.5 mg/2 mL Neb INHALATION ×2 (08:32→20:37)
[2024-10-21] MEDS: insulin lispro 100 unit/1 mL SUBCUT ×4 (09:05→21:07)
[2024-10-21] MEDS: pantoprazole DR 40 mg Tablet PO (09:06)
[2024-10-21] MEDS: lactulose oral liq 20 gm/30 mL UDC PO (09:06)
[2024-10-21] MEDS: thiamine 100 mg Tablet PO (09:06)
[2024-10-21] MEDS: multivitamin therapeutic Tablet 1 TAB PO (09:06)
[2024-10-21] MEDS: sennosides-docusate Tablet 1 TAB PO (09:06)
[2024-10-21] MEDS: gabapentin 400 mg Capsule PO ×3 (09:06→20:59)
[2024-10-21] MEDS: folic acid 1 mg Tablet PO (09:06)
[2024-10-21] MEDS: insulin glargine 100 units/1 mL 10 UNIT SUBCUT ×2 (09:07→21:07)
[2024-10-21] MEDS: amlodipine 10 mg Tablet PO (09:07)
[2024-10-21 11:37] LABS: Glucose Point of Care 230 mg/dL (70-110)
--- NOTE | 2024-10-21 15:06 | P.PN_ITS ---
Subjective 2 Subjective: Patient was seen this morning, he is alert to person, to place, not to time he does report feeling unwell, no nausea, no vomiting, does report cough and shortness of breath Vitals/I&O/Wt Last Vital Signs Temp 97.9 F 10/21/24 11:32 Pulse 102 H 10/21/24 11:40 Resp 18 10/21/24 11:51 BP 123/84 10/21/24 11:32 Pulse Ox 96 10/21/24 11:40 O2 Del Method Nasal Cannula 10/21/24 11:40 O2 Flow Rate 2 10/21/24 11:40 10/21/24 10/21/24 10/21/24 06:59 14:59 22:59 Intake Total 50 / 1420.000 820 / 820 Balance 50 / 1420.000 820 / 820 Physical Exam 2 Const: COMMON NORMALS: no acute distress and patient oriented x3 Resp: COMMON NORMALS: normal respiratory effort, No retractions and No use of accessory muscles AUSCULTATION: wheezes Cardio: COMMON NORMALS: regular rate, regular rhythm, S1 normal heart sound present and S2 normal heart sound present RATE: regular rate RHYTHM: r egular rhythm HEART SOUNDS: S1 normal heart sound present and S2 normal heart sound present GI: COMMON NORMALS: Normal to inspection, nondistended, normoactive bowel sounds present and non-tender Extremity: COMMON NORMALS: no pedal edema Neuro: COMMON NORMALS: patient oriented x3 Psych: COMMON NORMALS: mental status grossly normal Data 10/21/24 07:17 10/21/24 07:17 A&P Assessment and plan (1) Hyperglycemia: (2) Transaminitis: (3) Increased anion gap metabolic acidosis: (4) Left foot pain: (5) Alcohol withdrawal: (6) Hepatitis C antibody positive in blood: Plan Alcohol withdrawal -Having moderate alcohol withdrawal symptoms -Continue [facility] protocol -De-escalate Librium to 25 mg every 8 hours -Continue thiamine, folic acid Increased anion gap metabolic acidosis -Ketones negative, anion gap 16 -For now continue moderate dose sliding scale - increase Lantus to 10 units twice daily -Monitor blood sugars closely Transaminitis likely from alcoholism -Likely from alcoholism -CT scan abdomen pelvis CT/CT abdomen pelvis wo con [id number] IMPRESSION: 1. Negative for acute inflammatory process in the abdomen or pelvis. 2. Gallbladder appears to be visualized, please correlate clinically as clinical indication appears to indicate there has been a gallbladder surgery 3. Emphysematous changes. 4. Bibasilar atelectasis. 5. Hepatic steatosis. 6. Right kidney interpolar region 13 mm and left kidney interpolar region 11 mm probable proteinaceous cysts, consider correlation with ultrasound. 7. Left kidney interpolar region simple cyst, negative for follow-up advised. 8. Diverticulosis without diverticulitis. 9. Moderate to severe constipation. Moderate to severe constipation -MiraLAX, senna -Low oculus as needed Hepatitis C antibody positive, follow-up hepatitis C RNA Left foot pain with history of fracture -X-ray left foot 1. Acute comminuted minimally displaced fracture of the proximal phalanx great toe. -Spoke to orthopedics, keep left foot in a boot, pain control -Stevinson for pain control Wheezing, shortness of breath, acute hypoxic respiratory failure secondary to aspiration pneumonia -CT angiogram CT/CT angio chest PE protcl [id number] IMPRESSION: 1. Linear opacities involving both lungs which may reflect atelectasis, scarring or a combination of both. 2. Mild bronchial wall thickening with a few opacified lower lobe bronchi suggesting bronchitis and/or respiratory bronchiolitis with mucous plugging and/or aspiration. 3. Fatty infiltration of the liver. -Concerns for aspiration, Zosyn -DuoNeb, budesonide Tachycardia with history of CAD -Likely alcohol withdrawal Acute on chronic hyponatremia, serum sodium 127 however corrected for hyperglycemia is 130, monitor Full code Lovenox DVT prophylaxis Plan for today monitor monitor respiratory status continue IV antibiotics, blood sugar control Attestations 2 Medical Necessity Statement*: Patient requires hospitalization for aspiration pneumonia, transaminitis alcohol withdrawal Diagnoses Hyperglycemia R73.9 Transaminitis R74.01 Increased anion gap metabolic acidosis E87.29 Left foot pain M79.672 Alcohol withdrawal F10.939 Hepatitis C antibody positive in blood R76.8
--- NOTE | 2024-10-21 15:08 | USR_ITS ---
PROCEDURE INFORMATION: Exam: US Duplex Lower Extremity Veins, Bilateral Exam date and time: 10/21/2024 5:17 PM Age: 64 years old Clinical indication: Swelling (edema) of limb; Lower extremity, bilateral TECHNIQUE: Imaging protocol: Real-time duplex ultrasound of the bilateral extremities with 2-D oquendo scale, color Doppler flow and spectral waveform analysis including responses to compression and other maneuvers (when performed) with image documentation. Complete exam focused on the lower extremity veins. COMPARISON: CT abdomen pelvis wo con [id number] 10/20/2024 7:06 PM FINDINGS: Right deep veins: Unremarkable. The common femoral, femoral, proximal profunda femoral, popliteal, posterior tibial and peroneal veins are patent without thrombus. Normal Doppler waveforms. Normal compressibility and/or augmentation response. Left deep veins: Unremarkable. The common femoral, femoral, proximal profunda femoral, popliteal, posterior tibial and peroneal veins are patent without thrombus. Normal Doppler waveforms. Normal compressibility and/or augmentation response. Superficial veins: Greater saphenous veins at the saphenofemoral junctions are patent bilaterally without thrombus. Soft tissues: Unremarkable. US/CV venous duplex [facility] [id number] IMPRESSION: No sonographic evidence of deep venous thrombosis.
[2024-10-21] MEDS: HYDROcodone-acetaminophen 5-325 mg Tablet 1 TAB PO ×2 (15:09→23:31)
[2024-10-21 15:45] LABS: HEP C RNA Viral Load Quant 24000000 IU/mL (NOT DETECTED); HEP C RNA Viral Load Quant 7.38 Log IU/mL (NOT DETECTED)
[2024-10-21] MEDS: enoxaparin 40 mg/0.4 mL Syringe SUBCUT (15:52)
[2024-10-21 16:23] LABS: Glucose Point of Care 218 mg/dL (70-110)
[2024-10-21] MEDS: tamsulosin 0.4 mg Capsule PO (17:03)
[2024-10-21] MEDS: nicotine 21 mg Patch 1 PATCH TRANSDERMA (17:42)
--- NOTE | 2024-10-21 19:19 | P.NPUPN_ITS ---
Subjective NPU 2 Subjective: Patient is a 64-year-old white male admitted with suicidal ideation with a history of polysubstance abuse including methamphetamine use and alcohol use admitted with BAL of 234 and negative for illicit drugs. Patient had reported that he had no longer felt like harming himself. He had endorsed depression. He had continued to remain on the medical floor and stated that he wished to go to a fdc as he stated that he is medical problems made it unmanageable at home. He had reported that a family member was trying to aid in finding him a place to live. Mental Status Exam 2 MSE Comments: This is an overweight, older white male, appearing older than stated age with limited grooming and adequate eye contact. No abnormal involuntary motor movements except for mild psychomotor retardation and some tremulousness. He was Cooperative with exam in moderate distress. Speech was decreased in rate and volume. .Thought process was linear and organized. Thought content: patient denied suicidal or homicidal ideation. He did not appear to be responding to internal stimuli. Attention and concentration are intact and memory appeared reliable but none were formally tested. He is alert and oriented x 3. Insight and judgment are limited. Impulse control is impaired. Vitals/I&O/Wt Last Vital Signs Temp 98.1 F 10/21/24 16:00 Pulse 100 10/21/24 16:37 Resp 20 H 10/21/24 16:37 BP 130/83 10/21/24 16:00 Pulse Ox 94 10/21/24 16:37 O2 Del Method Nasal Cannula 10/21/24 16:37 O2 Flow Rate 2 10/21/24 16:37 10/21/24 10/21/24 10/21/24 06:59 14:59 22:59 Intake Total 50 / 1420.000 820 / 820 480 / 1300 Balance 50 / 1420.000 820 / 820 480 / 1300 Data NPU 10/21/24 07:17 10/21/24 07:17 A&P Assessment and plan (1) Acute psychosis: (2) Suicidal ideation: (3) Polysubstance abuse: (4) Methamphetamine use disorder, severe: (5) Suicidal ideation: (6) Alcohol withdrawal: (7) Depression: (8) Bereavement: Plan This is a 64year old white male who had been seen almost 2 years ago when he was reporting a history of migraines and a recent spider bite with ongoing spider bite symptoms and a long history of addiction who now presents with reports of depression and suicidality this time with a negative UDS but positive BAL. 1. Continue current medications. Recommend referral for outpatient psychotherapy. Add Lexapro 10mg to target depression. Recommend fdc placement for medical reasons. 2. Encourage individual, group and milieu therapy 3. Continue q-15 minute check for safety 4. Recommend sober living treatment at the highest level of care to which the patient is willing to commit. 5. Continue on CIWA, continue librium. 6. Evaluate for safety against the backdrop of the 96-hour hold. Transfer back to psychiatry once stabilized medically. Involuntary Hold Information 2 96 Hour Hold: 96 Hour Involuntary Admission: Yes 96 Hour Hold Ending Date: 10/24/24 96 Hour Hold Ending Time: 12:01 Other Hold: Hold End Date: 10/24/24 Attestations NPU 2 Medical Necessity Statement*: Inpatient hospitalization is medically necessary and the clinically appropriate intervention at this time. We will monitor medications and make changes as indicated. Likely length of stay contingent upon whether patient will require fdc placement otherwise discharge after 72 hours after last use of alcohol. Coding Level of Care Code Acute Code for g Fwd Diagnoses Acute psychosis F23 Suicidal ideation R45.851 Polysubstance abuse F19.10 Methamphetamine use disorder, severe F15.20 Alcohol withdrawal F10.939 Depression F32.A Bereavement Z63.4
[2024-10-21 20:41] LABS: Glucose Point of Care 289 mg/dL (70-110)
[2024-10-21] MEDS: amitriptyline 25 mg Tablet 75 MG PO (20:59)
[2024-10-21] MEDS: acetaminophen 325 mg Tablet 650 MG PO (21:06)
[2024-10-21] MEDS: OLANZapine 5 mg ODT PO (21:07)
[2024-10-22] VITALS (14 sets, daily range): BP systolic 116–146; BP diastolic 68–86; PULSE 85–98; RESP 16–20; TEMP 36.3–36.9; O2SAT 92–96
[2024-10-22] MEDS: ipratropium-albuterol 3 mL Neb INHALATION ×6 (00:47→19:57)
[2024-10-22] MEDS: piperacillin-tazobactam 3.375 GM in sodium chloride 0.9% (plus) 50 ML IV ×2 (01:01→08:30)
[2024-10-22 05:18] LABS: Basophils % 0.6 %; Eosinophils # 0.3 10^3/uL (0.0-0.8); Eosinophils % 5.1 %; Hematocrit 37.3 % (37-53); Lymphocytes # 1.3 10^3/uL (0.8-4.8); Lymphocytes % 24.9 %; Mean Corpuscular HGB Conc 32.4 g/dL (30-55); Mean Corpuscular Hemoglobin 30.3 pg (27-33); Mean Corpuscular Volume 93.5 fl (82-101); Mean Platelet Volume 11.3 fL (7.4-10.4); Monocytes # 0.5 10^3/uL (0.2-0.9); Neutrophils % 58.6 %; Nucleated Red Blood Cells % 0 %; Platelet Count 143 10^3/cmm (157-399); Red Blood Count 3.99 10^6/uL (3.85-5.65); Red Cell Distribution Width 14.1 % (12.1-15.1); White Blood Count 5.11 10^3/uL (3.29-11.43)
[2024-10-22] MEDS: ibuprofen 600 mg Tablet PO ×2 (05:29→19:44)
[2024-10-22] MEDS: chlordiazePOXIDE 25 mg Capsule PO ×2 (05:30→12:19)
[2024-10-22 05:42] LABS: Anion Gap 12.8 (5-19); Blood Urea Nitrogen 9 mg/dL (8-23); Calcium 8.4 mg/dL (8.5-10.5); Carbon Dioxide 30 mmol/L (22-29); Chloride 96 mmol/L (98-107); Creatinine Clr Calc Pharmacy 129.5927; Glomerular Filtration Rate 136.5 mL/min (90-130); Glucose 186 mg/dL (65-115); Osmolality Calculated 284 mOsm/kg (285-295); Potassium 3.8 mmol/L (3.5-5.1); Sodium 135 mmol/L (136-145)
[2024-10-22 06:17] LABS: Glucose Point of Care 231 mg/dL (70-110)
[2024-10-22] MEDS: budesonide 0.5 mg/2 mL Neb INHALATION ×2 (08:00→19:57)
[2024-10-22] MEDS: insulin glargine 100 units/1 mL 10 UNIT SUBCUT ×2 (08:28→21:42)
[2024-10-22] MEDS: insulin lispro 100 unit/1 mL SUBCUT ×4 (08:28→21:42)
[2024-10-22] MEDS: amlodipine 10 mg Tablet PO (08:29)
[2024-10-22] MEDS: folic acid 1 mg Tablet PO (08:29)
[2024-10-22] MEDS: pantoprazole DR 40 mg Tablet PO (08:29)
[2024-10-22] MEDS: HYDROcodone-acetaminophen 5-325 mg Tablet 1 TAB PO ×2 (08:29→17:13)
[2024-10-22] MEDS: sennosides-docusate Tablet 1 TAB PO ×2 (08:29→17:13)
[2024-10-22] MEDS: polyethylene glycol 3350 Pkt 17 gm PO (08:29)
[2024-10-22] MEDS: thiamine 100 mg Tablet PO (08:29)
[2024-10-22] MEDS: multivitamin therapeutic Tablet 1 TAB PO (08:29)
[2024-10-22] MEDS: escitalopram 10 mg Tablet PO (08:29)
[2024-10-22] MEDS: gabapentin 400 mg Capsule PO ×3 (08:29→20:21)
--- NOTE | 2024-10-22 10:43 | CT_ITS ---
WS: [id number] Noncontrast CT LEFT foot TECHNIQUE: Noncontrast CT LEFT foot with coronal and sagittal reformatted images. CLINICAL INFORMATION: pain COMPARISON: None. DLP: 144.[address] scans at [facility] use at least one of these dose optimization techniques: automated e xposure control; mA and/or kV adjustment per patient size (includes targeted exams where dose is matc hed to clinical indication); or iterative reconstruction. FINDINGS: Osteopenia. Hallux valgus. Stable comminuted acute fracture of the proximal phalanx great toe. This i s stable in appearance since the recent radiograph. Minimal displacement. No evidence of healing. Thi s has an acute appearance No other acute fractures. Normal ankle mortise. Normal medial and lateral malleolus. Normal talar dom e. Tiny Achilles calcaneal spur. Normal calcaneus. Talar neck appears normal. Normal navicular. Amaya l cuboid. Base of the fifth metatarsal appears normal. CT/CT foot LT wo con* [id number] IMPRESSION: Stable comminuted acute fracture of the proximal phalanx great toe. No evidence of healing.
[2024-10-22 10:50] LABS: Glucose Point of Care 273 mg/dL (70-110)
--- NOTE | 2024-10-22 13:39 | PM.PN ---
Subjective Subjective: Patient was seen this morning, no fevers, no chills, cough he is much more alert awake his tremors are more under control, denies any abdominal pain, no nausea, no vomiting he continues to have pain in his left foot, he is in the boot I took him out of the boot, examined left foot has good DP PT pulses, good cap refill, does have bruising in the great toe, and the lateral aspect of the foot, has point tenderness discussed doing a CT, denies any visual or auditory or tactile hallucinations Vitals/I&O/Wt Last Vital Signs Temp 97.4 F L 10/22/24 11:00 Pulse 89 10/22/24 11:11 Resp 16 10/22/24 11:11 BP 125/78 10/22/24 11:00 Pulse Ox 92 10/22/24 11:11 O2 Del Method Nasal Cannula 10/22/24 11:11 O2 Flow Rate 2 10/22/24 11:11 10/21/24 10/22/24 10/22/24 22:59 06:59 14:59 Intake Total 530 / 1350 50 / 1400 996.042 / 996.042 Balance 530 / 1350 50 / 1400 996.042 / 996.042 Physical Exam Const: COMMON NORMALS: no acute distress and patient oriented x3 Neck/C-Spine: COMMON NORMALS: no JVD Resp: COMMON NORMALS: normal respiratory effort, No retractions, No use of accessory muscles and clear to auscultation bilaterally AUSCULTATION: clear to auscultation bilaterally Cardio: COMMON NORMALS: no JVD, regular rate, regular rhythm, S1 normal heart sound present and S2 normal heart sound present RATE: regular rate RHYTHM: regular rhythm HEART SOUNDS: S1 normal heart sound present and S2 normal heart sound present GI: COMMON NORMALS: Normal to inspection, nondistended, normoactive bowel sounds present Extremity: COMMON NORMALS: no pedal edema Neuro: COMMON NORMALS: patient oriented x3 Psych: COMMON NORMALS: mental status grossly normal Data 10/22/24 04:50 10/22/24 04:50 A&P Assessment and plan (1) Hyperglycemia: (2) Transaminitis: (3) Increased anion gap metabolic acidosis: (4) Left foot pain: (5) Alcohol withdrawal: (6) Hepatitis C antibody positive in blood: Plan Alcohol withdrawal -Out of withdrawals -Continue [facility] protocol -De-escalate Librium to 25 mg every 12 hours -Continue thiamine, folic acid Increased anion gap metabolic acidosis, resolved -Ketones negative, anion gap 16 -For now continue moderate dose sliding scale - increase Lantus to 10 units twice daily -Monitor blood sugars closely Transaminitis likely from alcoholism -Likely from alcoholism -CT scan abdomen pelvis CT/CT abdomen pelvis wo con [id number] IMPRESSION: 1. Negative for acute inflammatory process in the abdomen or pelvis. 2. Gallbladder appears to be visualized, please correlate clinically as clinical indication appears to indicate there has been a gallbladder surgery 3. Emphysematous changes. 4. Bibasilar atelectasis. 5. Hepatic steatosis. 6. Right kidney interpolar region 13 mm and left kidney interpolar region 11 mm probable proteinaceous cysts, consider correlation with ultrasound. 7. Left kidney interpolar region simple cyst, negative for follow-up advised. 8. Diverticulosis without diverticulitis. 9. Moderate to severe constipation. Moderate to severe constipation -MiraLAX, senna -Low oculus as needed Hepatitis C antibody positive, follow-up hepatitis C RNA pending Acute comminuted minimally displaced fracture of the proximal phalanx great toe. ? Obtained when he tripped over an oxygen canister over a week ago -X-ray left foot 1. Acute comminuted minimally displaced fracture of the proximal phalanx great toe. -Spoke to orthopedics, keep left foot in a boot, pain control -[place] for pain control Wheezing, shortness of breath, acute hypoxic respiratory failure secondary to aspiration pneumonia -CT angiogram CT/CT angio chest PE protcl [id number] IMPRESSION: 1. Linear opacities involving both lungs which may reflect atelectasis, scarring or a combination of both. 2. Mild bronchial wall thickening with a few opacified lower lobe bronchi suggesting bronchitis and/or respiratory bronchiolitis with mucous plugging and/or aspiration. 3. Fatty infiltration of the liver. -De-escalate to Augmentin -DuoNeb, budesonide Tachycardia with history of CAD -Likely alcohol withdrawal Acute on chronic hyponatremia, 130 Full code Lovenox DVT prophylaxis Plan for today venous ultrasound negative for DVT, left foot CT Attestations Medical Necessity Statement*: Patient requires hospitalization for pneumonia, alcohol withdrawal Diagnoses Hyperglycemia R73.9 Transaminitis R74.01 Increased anion gap metabolic acidosis E87.29 Left foot pain M79.672 Alcohol withdrawal F10.939 Hepatitis C antibody positive in blood R76.8
[2024-10-22] MEDS: OLANZapine 5 mg ODT PO (13:55)
[2024-10-22] MEDS: enoxaparin 40 mg/0.4 mL Syringe SUBCUT (13:55)
[2024-10-22] MEDS: nicotine 21 mg Patch 1 PATCH TRANSDERMA (13:55)
[2024-10-22 16:50] LABS: Glucose Point of Care 310 mg/dL (70-110)
[2024-10-22] MEDS: amoxicillin-clav 875-125 mg Tablet 1 TAB PO (17:12)
[2024-10-22] MEDS: tamsulosin 0.4 mg Capsule PO (17:13)
--- NOTE | 2024-10-22 17:55 | W.PM.NPUPNS ---
Subjective NPU Subjective: Patient is a 64-year-old white male admitted with suicidal ideation with a history of polysubstance abuse including methamphetamine use and alcohol use admitted with BAL of 234 and negative for illicit drugs. The patient had reported depression. He had reported struggles with managing self care. He had reported no side effects to his medications. He had continued to report pain issues. Patient had been agreeable to placement in a intermediate and was agreeable to remaining on the medical floor with possibility of transitioning directly to a intermediate as he had reported his inability to care for himself due to multiple medical issues. He had reported no alcohol related withdrawal symptoms currently although he had remained on Librium as prescribed here. Mental Status Exam MSE Comments: This is an overweight, older white male, appearing older than stated age with limited grooming and adequate eye contact. No abnormal involuntary motor movements except for mild psychomotor retardation and some tremulousness. He was Cooperative with exam in mild distress. Speech was decreased in rate and volume. Mood described as depressed. Affect remained restricted. Thought process was linear and organized. Thought content: patient denied suicidal or homicidal ideation. He did not appear to be responding to internal stimuli. Attention and concentration are intact and memory appeared reliable but none were formally tested. He is alert and oriented x 3. Insight and judgment are limited. Impulse control is impaired. Vitals/I&O/Wt Last Vital Signs Temp 97.4 F L 10/22/24 15:12 Pulse 85 10/22/24 15:42 Resp 16 10/22/24 15:42 BP 125/73 10/22/24 15:12 Pulse Ox 96 10/22/24 15:42 O2 Del Method Nasal Cannula 10/22/24 15:42 O2 Flow Rate 2 10/22/24 15:42 10/22/24 10/22/24 10/22/24 06:59 14:59 22:59 Intake Total 50 / 1399 996.042 / 996.042 720 / 1716.042 Balance 50 / 1400 996.042 / 996.042 720 / 1716.042 Data NPU 10/22/24 04:50 10/22/24 04:50 A&P Assessment and plan (1) Acute psychosis: (2) Suicidal ideation: (3) Polysubstance abuse: (4) Methamphetamine use disorder, severe: (5) Suicidal ideation: (6) Alcohol withdrawal: (7) Depression: (8) Bereavement: Plan This is a 64year old white male who had been seen almost 2 years ago when he was reporting a history of migraines and a recent spider bite with ongoing spider bite symptoms and a long history of addiction who now presents with reports of depression and suicidality this time with a negative UDS but positive BAL. 1. Continue current medications. Recommend referral for outpatient psychotherapy. Continue Lexapro 10mg to target depression. Recommend intermediate placement for medical reasons. 2. Encourage individual, group and milieu therapy 3. Continue q-15 minute check for safety 4. Recommend sober living treatment at the highest level of care to which the patient is willing to commit. 5. Continue on CIWA, continue librium. 6. Evaluate for safety against the backdrop of the 96-hour hold. Patient should go to intermediate. Involuntary Hold Information 96 Hour Hold: 96 Hour Involuntary Admission: Yes 96 Hour Hold Ending Date: 10/24/24 96 Hour Hold Ending Time: 12:01 Other Hold: Hold End Date: 10/24/24 Attestations NPU Medical Necessity Statement*: Continue medical treatment on medical floor with plan for placement in intermediate. Coding Level of Care Code Acute Code for [facility] Fwd Diagnoses Acute psychosis F23 Suicidal ideation R45.851 Polysubstance abuse F19.10 Methamphetamine use disorder, severe F15.20 Alcohol withdrawal F10.939 Depression F32.A Bereavement Z63.4
[2024-10-22] MEDS: hyDROXYzine 25 mg Capsule 50 MG PO (19:44)
[2024-10-22] MEDS: amitriptyline 25 mg Tablet 75 MG PO (20:21)
[2024-10-22 20:41] LABS: Glucose Point of Care 219 mg/dL (70-110)
[2024-10-23] VITALS (10 sets, daily range): BP systolic 126–159; BP diastolic 69–81; PULSE 84–98; RESP 16–19; TEMP 36.4–36.6; O2SAT 2–97
[2024-10-23] MEDS: chlordiazePOXIDE 25 mg Capsule PO ×2 (01:18→13:35)
[2024-10-23 06:29] LABS: Glucose Point of Care 126 mg/dL (70-110)
[2024-10-23 07:21] LABS: Basophils % 0.7 %; Eosinophils # 0.3 10^3/uL (0.0-0.8); Eosinophils % 4.3 %; Lymphocytes # 1.6 10^3/uL (0.8-4.8); Lymphocytes % 25.4 %; Mean Corpuscular HGB Conc 32.1 g/dL (30-55); Mean Corpuscular Hemoglobin 30.2 pg (27-33); Mean Corpuscular Volume 94.2 fl (82-101); Monocytes # 0.6 10^3/uL (0.2-0.9); Monocytes % 9.5 %; Neutrophils # 3.62 10^3/uL (1.8-7.7); Neutrophils % 59.1 %; Nucleated Red Blood Cells % 0 %; Platelet Count 161 10^3/cmm (157-399); Red Blood Count 4.14 10^6/uL (3.85-5.65); Red Cell Distribution Width 14.6 % (12.1-15.1); White Blood Count 6.11 10^3/uL (3.29-11.43)
[2024-10-23 07:32] LABS: Anion Gap 12.1 (5-19); Blood Urea Nitrogen 10 mg/dL (8-23); Calcium 8.5 mg/dL (8.5-10.5); Carbon Dioxide 30 mmol/L (22-29); Chloride 99 mmol/L (98-107); Creatinine Clr Calc Pharmacy 155.5112; Glomerular Filtration Rate 168.5 mL/min (90-130); Glucose 136 mg/dL (65-115); Osmolality Calculated 285 mOsm/kg (285-295); Potassium 4.1 mmol/L (3.5-5.1); Sodium 137 mmol/L (136-145)
[2024-10-23] MEDS: ipratropium-albuterol 3 mL Neb INHALATION ×4 (08:41→22:15)
[2024-10-23] MEDS: budesonide 0.5 mg/2 mL Neb INHALATION ×2 (08:41→22:16)
[2024-10-23] MEDS: folic acid 1 mg Tablet PO (09:40)
[2024-10-23] MEDS: thiamine 100 mg Tablet PO (09:41)
[2024-10-23] MEDS: multivitamin therapeutic Tablet 1 TAB PO (09:41)
[2024-10-23] MEDS: amlodipine 10 mg Tablet PO (09:41)
[2024-10-23] MEDS: escitalopram 10 mg Tablet PO (09:41)
[2024-10-23] MEDS: amoxicillin-clav 875-125 mg Tablet 1 TAB PO ×2 (09:41→17:26)
[2024-10-23] MEDS: gabapentin 400 mg Capsule PO ×3 (09:41→20:50)
[2024-10-23] MEDS: pantoprazole DR 40 mg Tablet PO (09:41)
[2024-10-23] MEDS: sennosides-docusate Tablet 1 TAB PO ×2 (09:41→17:27)
[2024-10-23] MEDS: insulin glargine 100 units/1 mL 10 UNIT SUBCUT ×2 (09:42→20:53)
[2024-10-23] MEDS: polyethylene glycol 3350 Pkt 17 gm PO (09:43)
[2024-10-23] MEDS: nicotine 21 mg Patch 1 PATCH TRANSDERMA (09:54)
[2024-10-23 11:24] LABS: Glucose Point of Care 288 mg/dL (70-110)
[2024-10-23] MEDS: insulin lispro 100 unit/1 mL SUBCUT ×3 (13:34→20:50)
[2024-10-23] MEDS: OLANZapine 5 mg ODT PO (13:35)
--- NOTE | 2024-10-23 13:40 | P.PN_ITS ---
Subjective 2 Subjective: Patient was seen this morning, he is alert and oriented x 2, following all commands, does complain of of pain in his left foot, Vitals/I&O/Wt Last Vital Signs Temp 98 F 10/23/24 12:04 Pulse 92 10/23/24 12:04 Resp 19 H 10/23/24 12:04 BP 131/79 10/23/24 12:04 Pulse Ox 94 10/23/24 12:04 O2 Del Method Nasal Cannula 10/23/24 12:04 O2 Flow Rate 2 10/23/24 08:30 10/22/24 10/23/24 10/23/24 22:59 06:59 14:59 Intake Total 720 / 1716.042 480 / 480 Balance 720 / 1716.042 480 / 480 Physical Exam 2 Const: COMMON NORMALS: no acute distress and patient oriented x3 Resp: COMMON NORMALS: normal respiratory effort, No retractions, No use of accessory muscles and clear to auscultation bilaterally AUSCULTATION: clear to auscultation bilaterally Cardio: COMMON NORMALS: regular rate, regular rhythm, S1 normal heart sound present and S2 normal heart sound present RATE: regular rate RHYTHM: r egular rhythm HEART SOUNDS: S1 normal heart sound present and S2 normal heart sound present GI: COMMON NORMALS: Normal to inspection, nondistended, normoactive bowel sounds present and non-tender Extremity: COMMON NORMALS: no pedal edema Neuro: COMMON NORMALS: patient oriented x3 Psych: COMMON NORMALS: mental status grossly normal Data 10/23/24 07:07 10/23/24 07:07 A&P Assessment and plan (1) Hyperglycemia: (2) Transaminitis: (3) Increased anion gap metabolic acidosis: (4) Left foot pain: (5) Alcohol withdrawal: (6) Hepatitis C antibody positive in blood: Plan Alcohol withdrawal -Out of withdrawals -Continue [facility] protocol -De-escalate Librium to 25 mg every 12 hours -Continue thiamine, folic acid Increased anion gap metabolic acidosis, resolved -Ketones negative, anion gap 16 -For now continue moderate dose sliding scale - increase Lantus to 10 units twice daily -Monitor blood sugars closely Transaminitis likely from alcoholism -Likely from alcoholism -CT scan abdomen pelvis CT/CT abdomen pelvis wo con [id number] IMPRESSION: 1. Negative for acute inflammatory process in the abdomen or pelvis. 2. Gallbladder appears to be visualized, please correlate clinically as clinical indication appears to indicate there has been a gallbladder surgery 3. Emphysematous changes. 4. Bibasilar atelectasis. 5. Hepatic steatosis. 6. Right kidney interpolar region 13 mm and left kidney interpolar region 11 mm probable proteinaceous cysts, consider correlation with ultrasound. 7. Left kidney interpolar region simple cyst, negative for follow-up advised. 8. Diverticulosis without diverticulitis. 9. Moderate to severe constipation. Moderate to severe constipation -MiraLAX, senna -Low oculus as needed Hepatitis C antibody positive, follow-up hepatitis C RNA pending Acute comminuted minimally displaced fracture of the proximal phalanx great toe. ? Obtained when he tripped over an oxygen canister over a week ago -X-ray left foot 1. Acute comminuted minimally displaced fracture of the proximal phalanx great toe. ct CT/CT foot LT wo con* [id number] IMPRESSION: Stable comminuted acute fracture of the proximal phalanx great toe. No evidence of healing. -Spoke to orthopedics, keep left foot in a boot, pain control -[place] for pain control Wheezing, shortness of breath, acute hypoxic respiratory failure secondary to aspiration pneumonia -CT angiogram CT/CT angio chest PE protcl [id number] IMPRESSION: 1. Linear opacities involving both lungs which may reflect atelectasis, scarring or a combination of both. 2. Mild bronchial wall thickening with a few opacified lower lobe bronchi suggesting bronchitis and/or respiratory bronchiolitis with mucous plugging and/or aspiration. 3. Fatty infiltration of the liver. -De-escalate to Augmentin -DuoNeb, budesonide Tachycardia with history of CAD -Likely alcohol withdrawal Acute on chronic hyponatremia, 137 Full code Lovenox DVT prophylaxis Plan for today= continue to monitor, de-escalate Librium, Attestations 2 Medical Necessity Statement*: Patient requires hospitalization for aspiration pneumonia Diagnoses Hyperglycemia R73.9 Transaminitis R74.01 Increased anion gap metabolic acidosis E87.29 Left foot pain M79.672 Alcohol withdrawal F10.939 Hepatitis C antibody positive in blood R76.8
[2024-10-23] MEDS: enoxaparin 40 mg/0.4 mL Syringe SUBCUT (15:49)
[2024-10-23] MEDS: acetaminophen 325 mg Tablet 650 MG PO (15:49)
[2024-10-23 16:35] LABS: Glucose Point of Care 216 mg/dL (70-110)
[2024-10-23] MEDS: tamsulosin 0.4 mg Capsule PO (17:26)
--- NOTE | 2024-10-23 17:27 | P.NPUPN_ITS ---
Subjective NPU 2 Subjective: Patient is a 64-year-old white male admitted with suicidal ideation with a history of polysubstance abuse including methamphetamine use and alcohol use admitted with BAL of 234 and negative for illicit drugs. The patient had continued to reiterate his desire to go to a halfway. He had reported his mood as being better. He had reported some pain in his leg. He had reported no side effects from his current medication regimen otherwise. He had endorsed no suicidal thoughts. Mental Status Exam 2 MSE Comments: This is an overweight, older white male, appearing older than stated age with limited grooming and adequate eye contact. No abnormal involuntary motor movements except for mild psychomotor retardation and some tremulousness. He was Cooperative with exam in mild distress. Speech was normal in rate and decreased in volume. Mood described as allright. Affect remained restricted. Thought process was linear and organized. Thought content: patient denied suicidal or homicidal ideation. He did not appear to be responding to internal stimuli. Attention and concentration are intact and memory appeared reliable but none were formally tested. He is alert and oriented x 3. Insight is fair and judgment is fair. Impulse control is fair. Vitals/I&O/Wt Last Vital Signs Temp 97.6 F 10/23/24 16:38 Pulse 90 10/23/24 16:38 Resp 18 10/23/24 16:38 BP 159/69 10/23/24 16:38 Pulse Ox 96 10/23/24 16:38 O2 Del Method Nasal Cannula 10/23/24 16:38 O2 Flow Rate 2 10/23/24 15:55 10/23/24 10/23/24 10/23/24 06:59 14:59 22:59 Intake Total 1200 / 1200 Balance 1200 / 1200 Data NPU 10/23/24 07:07 10/23/24 07:07 A&P Assessment and plan (1) Acute psychosis: (2) Suicidal ideation: (3) Polysubstance abuse: (4) Methamphetamine use disorder, severe: (5) Suicidal ideation: (6) Alcohol withdrawal: (7) Depression: (8) Bereavement: Plan This is a 64year old white male who had been seen almost 2 years ago when he was reporting a history of migraines and a recent spider bite with ongoing spider bite symptoms and a long history of addiction who now presents with reports of depression and suicidality this time with a negative UDS but positive BAL. 1. Continue current medications. Recommend referral for outpatient psychotherapy. Continue Lexapro 10mg to target depression. Recommend halfway placement for medical reasons. 2. Encourage individual, group and milieu therapy 3. Continue q-15 minute check for safety 4. Recommend sober living treatment at the highest level of care to which the patient is willing to commit. 5. Continue on CIWA, continue librium. 6. Sign voluntarily. Patient agreeable to halfway. Involuntary Hold Information 2 96 Hour Hold: 96 Hour Involuntary Admission: Yes 96 Hour Hold Ending Date: 10/24/24 96 Hour Hold Ending Time: 12:01 Other Hold: Hold End Date: 10/24/24 Attestations NPU 2 Medical Necessity Statement*: Continue medical treatment on medical floor with plan for placement in halfway. Coding Level of Care Code Acute Code for [facility] Fwd Diagnoses Acute psychosis F23 Suicidal ideation R45.851 Polysubstance abuse F19.10 Methamphetamine use disorder, severe F15.20 Alcohol withdrawal F10.939 Depression F32.A Bereavement Z63.4
[2024-10-23] MEDS: amitriptyline 25 mg Tablet 75 MG PO (20:50)
[2024-10-23] MEDS: hyDROXYzine 25 mg Capsule 50 MG PO (20:50)
[2024-10-24] VITALS: BP 97/56; PULSE 87; RESP 18; TEMP 36.9; O2SAT 96
[2024-10-24 01:15] VITALS: PULSE 89; RESP 18; O2SAT 2
[2024-10-24] MEDS: ipratropium-albuterol 3 mL Neb INHALATION ×2 (01:17→07:54)
[2024-10-24 03:53] VITALS: BP 133/94; PULSE 90; RESP 18; TEMP 36.5; O2SAT 91
[2024-10-24 06:23] LABS: Glucose Point of Care 135 mg/dL (70-110)
[2024-10-24] MEDS: budesonide 0.5 mg/2 mL Neb INHALATION (07:54)
[2024-10-24 07:55] VITALS: PULSE 78; RESP 16; O2SAT 95
[2024-10-24 07:57] VITALS: BP 127/82; PULSE 85; RESP 20; TEMP 36.3; O2SAT 90
--- NOTE | 2024-10-24 08:11 | PC.NURSE ---
This nurse was at bedside with pt and he stated he was leaving today even if he had to walk out. This nurse asked pt what happened to his decision to dc to SNF and he just stated he changed his mind. With the reason for admission and recent 96 hour hold, this consulted the neuro psych physician and he stated he felt comfortable with pt leaving or being discharged. The hospitalist providing care to pt was updated of this and he stated he would probably dc today, but to tell the pt that they would be in to see him this morning. Pt was agreeable to this and willing to wait for the physician.
[2024-10-24] MEDS: multivitamin therapeutic Tablet 1 TAB PO (08:57)
[2024-10-24] MEDS: pantoprazole DR 40 mg Tablet PO (08:57)
[2024-10-24] MEDS: amoxicillin-clav 875-125 mg Tablet 1 TAB PO (08:57)
[2024-10-24] MEDS: gabapentin 400 mg Capsule PO (08:57)
[2024-10-24] MEDS: chlordiazePOXIDE 25 mg Capsule PO (08:58)
[2024-10-24] MEDS: sennosides-docusate Tablet 1 TAB PO (08:58)
[2024-10-24] MEDS: thiamine 100 mg Tablet PO (08:58)
[2024-10-24] MEDS: amlodipine 10 mg Tablet PO (08:58)
[2024-10-24] MEDS: escitalopram 10 mg Tablet PO (08:58)
[2024-10-24] MEDS: folic acid 1 mg Tablet PO (08:58)
[2024-10-24] MEDS: insulin glargine 100 units/1 mL 10 UNIT SUBCUT (09:00)
--- NOTE | 2024-10-24 09:27 | PM.DCS ---
Discharge Providers Date of Admission: 10/18/24 15:57 Date of Discharge: October 24, 2024 Attending Provider at Admission: Jimmy Lee MD Attending Provider at Discharge: Jimmy Lee MD Primary Care Provider: Katina Mata Diagnoses at Discharge Discharge Diagnosis (1) Acute psychosis: Status: Resolved (2) Suicidal ideation: Status: Resolved (3) Polysubstance abuse: Status: Resolved (4) Methamphetamine use disorder, severe: Status: Resolved (5) Alcohol withdrawal: Status: Resolved (6) Depression: Status: Acute (7) Bereavement: Status: Resolved Reason for Visit Reason for Visit: depression/ ETOH Hospital Course Hospital Course Amado Lawson is a 64 year old male with a past medical history of COPD, type 2 diabetes mellitus, COPD, history of alcoholism, depression who presents [facility] for concern for suicidal ideation. Patient reports that his last drink of alcohol was this morning at 6 AM he had 4 shots of alcohol. He reports that for his type 2 diabetes mellitus he takes insulin shots he takes 10 units of 6 he thinks Lantus or Levemir daily but is not exactly sure he did not take his insulin this morning. He does report history of CAD but denies any active chest pain. He tells me that about a week ago he fell with an oxygen tank on his left foot he saw one of the emergency room providers Dr. Weeks in [facility] he was told he had a fracture he had to put on the boot, he is currently wearing it continues to have pain in his foot, he is supposed to follow-up with orthopedic physician as outpatient. He does report a history of pancreatitis currently abdomen is a bit distended, denies any abdominal pain, no nausea, vomiting. He is going through severe withdrawals currently, tachycardia, diffuse shakes, feeling anxious, no nausea, vomiting, in the emergency room he is documented on 2 L, denies any oxygen use at home, does have COPD, does have wheezing on examination. Patient was admitted to [facility], alcohol withdrawal, requiring MedSurg admission, CIWA protocol managed on Librium, alcohol withdrawal resolved Increased anion gap metabolic acidosis, resolved discharged on insulin therapy Transaminitis likely second alcoholism, follow-up with primary care Hepatitis C antibody positive, follow-up with infectious disease as outpatient Acute comminuted minimally displaced fracture of the proximal phalanx great toe -Follow-up with podiatry -Discharge with the boot in place Aspiration pneumonia requiring IV antibiotics, follow-up with primary care Attempts were made to place patient to alf facility, moved to be difficult, however patient later decided to go home, discharged home On discharge denied any suicidal ideation, no homicidal ideation, denies seeing or hearing things are not there History of Parkinson's disease continue levodopa carbidopa Physical Exam Const: COMMON NORMALS: no acute distress and patient oriented x3 Resp: COMMON NORMALS: normal respiratory effort, No retractions, No use of accessory muscles and clear to auscultation bilaterally AUSCULTATION: clear to auscultation bilaterally Cardio: COMMON NORMALS: regular rate, regular rhythm, S1 normal heart sound present and S2 normal heart sound present RATE: regular rate RHYTHM: regular rhythm HEART SOUNDS: S1 normal heart sound present and S2 normal heart sound present GI: COMMON NORMALS: Normal to inspection, nondistended, normoactive bowel sounds present, non-tender and no masses Extremity: COMMON NORMALS: no pedal edema Neuro: COMMON NORMALS: patient oriented x3 Psych: COMMON NORMALS: mental status grossly normal Discharge Data Studies Completed and Pending Completed Studies During Hospitalization Category Date Time Status CT abdomen pelvis wo con [id number] Routine Cat Scan 10/20/24 13:[address] foot LT wo con* [id number] Routine Cat Scan 10/22/24 10:43 Completed CTA PE [CT angio chest PE protcl [id number]] Stat Cat Scan 10/20/24 03:02 Completed XR chest 1V portable [id number] Routine Exams 10/18/24 18:05 Completed XR foot LT min 3V* [id number] Routine Exams 10/18/24 18:05 [place] [id number] Routine Ultrasound 10/21/24 15:08 Completed Pending at discharge Category Date Time Status Sputum Culture and Gram Stain Stat Lab 10/20/24 08:27 Uncollected Radiology Impressions Chest X-Ray 10/18/24 18:05 IMPRESSION: 1. No acute cardiopulmonary abnormality. Foot X-Ray 10/18/24 18:05 IMPRESSION: 1. Acute comminuted minimally displaced fracture of the proximal phalanx great toe. Chest CTA 10/20/24 03:02 IMPRESSION: 1. Linear opacities involving both lungs which may reflect atelectasis, scarring or a combination of both. 2. Mild bronchial wall thickening with a few opacified lower lobe bronchi suggesting bronchitis and/or respiratory bronchiolitis with mucous plugging and/or aspiration. 3. Fatty infiltration of the liver. Abdomen/Pelvis CT 10/20/24 13:39 IMPRESSION: 1. Negative for acute inflammatory process in the abdomen or pelvis. 2. Gallbladder appears to be visualized, please correlate clinically as clinical indication appears to indicate there has been a gallbladder surgery 3. Emphysematous changes. 4. Bibasilar atelectasis. 5. Hepatic steatosis. 6. Right kidney interpolar region 13 mm and left kidney interpolar region 11 mm probable proteinaceous cysts, consider correlation with ultrasound. 7. Left kidney interpolar region simple cyst, negative for follow-up advised. 8. Diverticulosis without diverticulitis. 9. Moderate to severe constipation. COMMENTS: Consistent with the [place] [employer]'s Incidental Findings Committee white paper (J Am Montse Radiol 2018): Any incidental renal lesion less than 1 cm or classified as too small to characterize, or any incidental cystic renal lesion characterized as simple-appearing, is likely benign. No follow-up imaging is recommended for these lesions per consensus recommendations based on imaging criteria. Venous Duplex 10/21/24 15:08 IMPRESSION: No sonographic evidence of deep venous thrombosis. Foot CT 10/22/24 10:43 IMPRESSION: Stable comminuted acute fracture of the proximal phalanx great toe. No evidence of healing. Laboratory Results WBC 6.11 10^3/uL (3.29-11.43) 10/23/24 07:07 RBC 4.14 10^6/uL (3.85-5.65) 10/23/24 07:07 Hgb 12.50 g/dL (11.27-16.99) 10/23/24 07:07 Hct 39.0 % (37-53) 10/23/24 07:07 MCV 94.2 fl (82-101) 10/23/24 07:07 MCH 30.2 pg (27-33) 10/23/24 07:07 MCHC 32.1 g/dL (30-55) 10/23/24 07:07 RDW 14.6 % (12.1-15.1) 10/23/24 07:07 Plt Count 161 10^3/cmm (157-399) 10/23/24 07:07 MPV 11.0 fL (7.4-10.4) H 10/23/24 07:07 Neut % (Auto) 59.1 % 10/23/24 07:07 Lymph % (Auto) 25.4 % 10/23/24 07:07 Iron % (Auto) 9.5 % 10/23/24 07:07 Eos % (Auto) 4.3 % 10/23/24 07:07 Baso % (Auto) 0.7 % 10/23/24 07:07 Neut # (Auto) 3.62 10^3/uL (1.8-7.7) 10/23/24 07:07 Lymph # (Auto) 1.6 10^3/uL (0.8-4.8) 10/23/24 07:07 Iron # (Auto) 0.6 10^3/uL (0.2-0.9) 10/23/24 07:07 Eos # (Auto) 0.3 10^3/uL (0.0-0.8) 10/23/24 07:07 Baso # (Auto) 0.0 10^3/uL (0.0-0.1) 10/23/24 07:07 Nucleated RBC % (auto) 0 % 10/23/24 07:07 Nucleated RBCs # 0.0 /100WBC 10/23/24 07:07 D-Dimer 0.47 ug/mLFEU (0-0.59) 10/20/24 03:04 Specimen Type Arterial 10/20/24 03:07 Sample Site Radial, right 10/20/24 03:07 ABG pH 7.42 (7.35-7.45) 10/20/24 03:07 ABG pCO2 44.7 mmHg (35-45) 10/20/24 03:07 ABG pO2 69.3 mmHg (80.0-100.0) L 10/20/24 03:07 ABG PO2/FiO2 Ratio 247 10/20/24 03:07 ABG HCO3 28.6 mmol/L (22-26) H 10/20/24 03:07 ABG Base Excess 3.4 mmol/L (-2.0-2.0) H 10/20/24 03:07 Alcon Test Pos 10/20/24 03:07 Hematocrit 42.4 % (42-52) 10/20/24 03:07 O2 Delivery Device Nc 10/20/24 03:07 O2 Liters/Min 2.0 % 10/20/24 03:07 FiO2 28.0 % 10/20/24 03:07 Circuit Manager ID Ed 10/20/24 03:07 Sodium 137 mmol/L (136-145) 10/23/24 07:07 Potassium 4.1 mmol/L (3.5-5.1) 10/23/24 07:07 Chloride 99 mmol/L (98-107) 10/23/24 07:07 Carbon Dioxide 30 mmol/L (22-29) H 10/23/24 07:07 Anion Gap 12.1 (5-19) 10/23/24 07:07 BUN 10 mg/dL (8-23) 10/23/24 07:07 Creatinine 0.5 mg/dL (0.7-1.2) L 10/23/24 07:07 GFR Calculation 168.5 mL/min (90-130) H 10/23/24 07:07 Glucose 136 mg/dL (65-115) H 10/23/24 07:07 POC Glucose 135 mg/dL (70-110) H 10/24/24 06:16 Estimat Average Glucose 255 10/18/24 18:56 Hemoglobin A1c 10.5 % (4.0-6.0) H 10/18/24 18:56 Calculated Osmolality 285 mOsm/kg (285-295) 10/23/24 07:07 Calcium 8.5 mg/dL (8.5-10.5) 10/23/24 07:07 Total Bilirubin 0.7 mg/dL (0.15-1.2) 10/20/24 03:04 GGT 648 U/L (8-61) H 10/18/24 18:56 AST 95 U/L (0-40) H 10/20/24 03:04 ALT 73 U/L (0-41) H 10/20/24 03:04 Alkaline Phosphatase 178 U/L (40-130) H 10/20/24 03:04 Creatine Kinase 101 U/L (39-308) 10/18/24 18:56 Troponin T 5th Gen ng/L 12 ng/L (0-15) 10/20/24 03:04 Troponin T Baseline 15 ng/L (0-15) 10/18/24 18:56 Troponin T 120 Minute 15.57 ng/L (0-15) H 10/18/24 20:41 Delta Troponin T 0.57 ABS# (0-10) 10/18/24 20:41 Troponin T Hi Sens 6Hr 12.92 ng/L (0-15) 10/19/24 00:54 Troponin T Hi Sens 6Hr Delta -2.08 ng/L (0-12) L 10/19/24 00:54 C-Reactive Protein 18.2 mg/L (0.0-4.9) H 10/20/24 03:04 NT-Pro-B Natriuret Pep 127 pg/mL (0-125) H 10/20/24 03:04 Total Protein 6.0 g/dL (6.6-8.7) L 10/20/24 03:04 Albumin 3.7 g/dL (3.5-5.2) 10/20/24 03:04 Globulin 2.3 g/dL (1.3-4.6) 10/20/24 03:04 Triglycerides 342 mg/dL (0-150) H 10/18/24 18:56 Cholesterol 170 mg/dL (0-200) 10/18/24 18:56 LDL Cholesterol, Calc 57 mg/dL (50-129) 10/18/24 18:56 HDL Cholesterol 45 mg/dL (60-100) L 10/18/24 18:56 LDL/HDL Ratio 1.27 RATIO (0.00-3.22) 10/18/24 18:56 Cholesterol/HDL Ratio 3.78 mg/dL (1.0-5.00) 10/18/24 18:56 Lipase 71 U/L (13-60) H 10/18/24 18:56 Procalcitonin 0.11 ng/mL (0-0.5) 10/20/24 03:04 Urine Color Yellow (Yellow) 10/18/24 10:52 Urine Appearance Clear (CLEAR) 10/18/24 10:52 Urine pH 5.5 (5-7) 10/18/24 10:52 Ur Specific [place] 1.041 (1.005-1.030) H 10/18/24 10:52 Urine Protein Negative (Negative) 10/18/24 10:52 Urine Glucose (UA) 3+ (Normal) H 10/18/24 10:52 Urine Ketones Negative (Negative) 10/18/24 10:52 Urine Blood Negative (Negative) 10/18/24 10:52 Urine Nitrate Negative (Negative) 10/18/24 10:52 Urine Bilirubin Negative (Negative) 10/18/24 10:52 Urine Urobilinogen 0.2 mg/dL (Negative) 10/18/24 10:52 Ur Leukocyte Esterase Negative (Negative) 10/18/24 10:52 Urine RBC 0-2 /hpf (0-2) 10/18/24 10:52 Urine WBC 0-5 /hpf (0-5) 10/18/24 10:52 Ur Squamous Epith Cells 0-5 /hpf (0-5) 10/18/24 10:52 Amorphous Sediment Not Reportable 10/18/24 10:52 Urine Bacteria None seen /hpf (NONE) 10/18/24 10:52 Hyaline Casts 0-4 /lpf H 10/18/24 10:52 Salicylates < 0.3 mg/dL (3-10) L 10/18/24 10:14 Urine Opiates Screen Negative ng/mL (Negative) 10/18/24 10:52 Acetaminophen < 5.0 ug/mL (10-30) L 10/18/24 10:14 Ur Barbiturates Screen Negative ng/mL (Negative) 10/18/24 10:52 Ur Phencyclidine Scrn Negative ng/mL (Negative) 10/18/24 10:52 Ur Amphetamines Screen Negative ng/mL (Negative) 10/18/24 10:52 U Benzodiazepines Scrn Negative ng/mL (Negative) 10/18/24 10:52 Urine Cocaine Screen Negative ng/mL (Negative) 10/18/24 10:52 U Marijuana (THC) Screen Negative ng/mL (Negative) 10/18/24 10:52 Ethyl Alcohol 234 mg/dL (0-10) H 10/18/24 10:14 Serum Ketones Negative (Negative) 10/18/24 18:56 Adenovirus (PCR) Not detected (NOT DETECT) 10/20/24 13:07 C. pneumoniae DNA (PCR) Not detected (NOT DETECT) 10/20/24 13:07 Coronavirus 229E (PCR) Not detected (NOT DETECT) 10/20/24 13:07 Hepatitis A IgM Ab Non-reactive (Nonreactive) 10/18/24 18:56 Hep Bs Antigen Non-reactive (Nonreactive) 10/18/24 18:56 Hep B Core IgM Ab Non-reactive (Nonreactive) 10/18/24 18:56 Hepatitis C Antibody Reactive (Nonreactive) H 10/18/24 18:56 HCV RNA (PCR) IUs/ml 7.38 Log IU/mL (NOT DETECTED) H 10/18/24 20:02 HCV RNA (PCR) IU log10 [id number] IU/mL (NOT DETECTED) H 10/18/24 20:02 HIV 1&2 Ab & HIV 1 Ag Non-reactive (Non-Reactiv) 10/18/24 18:56 HIV 1&2 Antibody Non-reactive (Non-Reactiv) 10/18/24 18:56 Human Metapneumovir PCR Not detected (NOT DETECT) 10/20/24 13:07 Influenza A (H1) PCR Not detected (NOT DETECT) 10/20/24 13:07 Influ A (H1/09) PCR Not detected (NOT DETECT) 10/20/24 13:07 Influenza A (H3) PCR Not detected (NOT DETECT) 10/20/24 13:07 Influenza Type A (PCR) Not detected (NOT DETECT) 10/20/24 13:07 Influenza Type B (PCR) Not detected (NOT DETECT) 10/20/24 13:07 M. pneumoniae (PCR) Not detected (NOT DETECT) 10/20/24 13:07 Parainfluenza 1 (PCR) Not detected (NOT DETECT) 10/20/24 13:07 Parainfluenza 2 (PCR) Not detected (NOT DETECT) 10/20/24 13:07 Parainfluenza 3 (PCR) Not detected (NOT DETECT) 10/20/24 13:07 Parainfluenza 4 (PCR) Not detected (NOT DETECT) 10/20/24 13:07 RSV Type A (PCR) Not detected (NOT DETECT) 10/20/24 13:07 RSV Type B (PCR) Not detected (NOT DETECT) 10/20/24 13:07 Entero/Rhino (PCR) Not detected (NOT DETECT) 10/20/24 13:07 SARS-CoV-2 (PCR) Not detected (NOT DETECT) 10/20/24 13:07 Vitals Last Vital Signs Temp 97.4 F L 10/24/24 07:57 Pulse 85 10/24/24 07:57 Resp 20 H 10/24/24 07:57 BP 127/82 10/24/24 07:57 Pulse Ox 90 10/24/24 07:57 O2 Del Method Room Air 10/24/24 07:57 O2 Flow Rate 2 10/24/24 08:00 Discharge Plan Discharge Patient Disposition: Home Condition: Stable Prescriptions: New gabapentin 400 mg Capsule 400 mg PO TID 30 Days Qty: 90 0RF carbidopa-levodopa 10-100 mg Tablet 1 tab PO QID 30 Days Qty: 120 0RF folic acid 1 mg Tablet 1 mg PO DAILY 30 Days Qty: 30 0RF escitalopram oxalate 10 mg Tablet 10 mg PO DAILY 30 Days Qty: 30 0RF thiamine mononitrate (vit B1) [Vitamin B-1 (mononitrate)] 100 mg Tablet 100 mg PO DAILY 30 Days Qty: 30 0RF insulin glargine [Basaglar KwikPen U-100 Insulin] 100 unit/mL (3 mL) insulin pen 10 unit SUBCUT BID 30 Days Qty: 15 0RF insulin aspart U-100 [Novolog FlexPen U-100 Insulin] 100 unit/mL (3 mL) insulin pen See Rx Instructions .ROUTE .COMPLEX Qty: 15 0RF Rx Instructions: inject subcut, tid, after meals, based on sliding scale provided Thick and Easy Powder 1 ea PO TIDWMEAL 30 Days Qty: 2724 0RF Continued amlodipine 10 mg tablet 10 mg PO DAILY Excedrin Migraine 250-250-65 mg Tablet 1 tab PO Q6H PRN (Reason: Headache) multivitamin Tablet 1 tab PO DAILY albuterol sulfate 90 mcg/actuation HFA aerosol inhaler 2 inh INHALATION Q4H PRN (Reason: shortness of breath or wheezing) Qty: 6.7 1RF pantoprazole [Protonix] 40 mg tablet,delayed release (DR/EC) 40 mg PO DAILY Qty: 60 0RF tamsulosin 0.4 mg capsule 0.4 mg PO QPM amitriptyline 75 mg tablet 75 mg PO BEDTIME Discontinued ibuprofen 200 mg Tablet 600 mg PO Q6H PRN (Reason: Pain) gabapentin 300 mg capsule 300 mg PO TID Discharge Orders: Discharge Order (Routine); Ordered 10/24/24 Ordered By: Augustus Wood Other Ambulatory Orders: Speech Language Pathology Eval and Treat Outpatient (Order) Timeframe: 1 Day Facility: [facility] - Location: [facility] [place] Ordered By: Augustus Wood Referrals: Chantel Esparza MD [Physician] - 1 week (We have notified your physician's clinic of the need for a follow-up appointment to be scheduled. If you have not heard from them within the next 2 business days, please call them directly. ) Ashleigh Joyner MD [Hospitalist] - 1 month (hep c We have notified your physician's clinic of the need for a follow-up appointment to be scheduled. If you have not heard from them within the next 2 business days, please call them directly. ) Bobby Pandey DPM [Physician] - 1 week (great toe fx We have notified your physician's clinic of the need for a follow-up appointment to be scheduled. If you have not heard from them within the next 2 business days, please call them directly. ) Katina Mata [Primary Care Provider] - (We have notified your physician's clinic of the need for a follow-up appointment to be scheduled. If you have not heard from them within the next 2 business days, please call them directly. ) Terrence Pierson DO [Staff Physician] - 1 week (We have notified your physician's clinic of the need for a follow-up appointment to be scheduled. If you have not heard from them within the next 2 business days, please call them directly. ) Discharge Diet: As Directed Discharge Activity: Resume usual activity Patient Instructions: Amoxicillin/Clavulanate Potassium (By mouth), Gabapentin (By mouth), Escitalopram (By mouth), Depression (GEN), Abuse of Alcohol (GEN), Help Prevent Suicide (GEN), Opioid Safety Activity Restrictions/Additional Instructions: -please abstain from alcohol -please follow up with infectious disease for hep c treament -for your toe fracture please follow up [facility] dr pandey, please use boot -please follow up [facility] -if you have homicidal or suicidal ideation please call 911 -please adhere to dysphagia level 4 diet, with mild thickening, monitor for aspiration -follow with speech therapy Discharge Attestations Time Spent in Discharge Care*: greater than 30 min Quality Metrics Clinical Quality Measures [ No reported AMI, CVA or VTE this stay] Coding Level of Care Code 44591 Total time (in minutes) for Discharge: 45 Diagnoses Acute psychosis F23 Suicidal ideation R45.851 Polysubstance abuse F19.10 Methamphetamine use disorder, severe F15.20 Alcohol withdrawal F10.939 Depression F32.A Bereavement Z63.4
[2024-10-24 11:08] VITALS: BP 127/82; PULSE 85; RESP 20; TEMP 36.3; O2SAT 90
== END 2024-10-24 10:50 | disposition home or self-care (01) | DRG 896 ==
LOC: ER 15:51 → NP 15:58 → MEDSURG 10-20 04:14
PROVIDERS: Family Medicine; Internal Medicine; Admitting Provider Psychiatry & Neurology Psychiatry; Emergency Provider Emergency Medicine; PCP Registered Nurse; Visit Provider Psychiatry & Neurology Psychiatry
DX: F10.229 Alcohol dependence with intoxication, unspecified (principal); J69.0 Pneumonitis due to inhalation of food and vomit; F23 Brief psychotic disorder; R45.851 Suicidal ideations; F15.20 Other stimulant dependence, uncomplicated; E87.20 Acidosis, unspecified; F10.239 Alcohol dependence with withdrawal, unspecified; Y90.7 Blood alcohol level of 200-239 mg/100 ml; F32.A Depression, unspecified; Z63.4 Disappearance and death of family member; J44.9 Chronic obstructive pulmonary disease, unspecified; E11.65 Type 2 diabetes mellitus with hyperglycemia; Z79.4 Long term (current) use of insulin; T38.3X6A Underdosing of insulin and oral hypoglycemic [antidiabetic] drugs, initial encounter; Z91.128 Patient's intentional underdosing of medication regimen for other reason; I25.10 Atherosclerotic heart disease of native coronary artery without angina pectoris; R00.0 Tachycardia, unspecified; R74.01 Elevation of levels of liver transaminase levels; B19.20 Unspecified viral hepatitis C without hepatic coma; S92.412A Displaced fracture of proximal phalanx of left great toe, initial encounter for closed fracture; W19.XXXA Unspecified fall, initial encounter; E66.3 Overweight; Z68.30 Body mass index [BMI] 30.0-30.9, adult; Z99.81 Dependence on supplemental oxygen; G43.909 Migraine, unspecified, not intractable, without status migrainosus; G20.A1 Parkinson's disease without dyskinesia, without mention of fluctuations
CPT/HCPCS: 36415; 36416; 36600; 71045; 71275; 73630; 73700; 74176; 80048; 80053; 80061; 80074; 80306; 80307; 81001; 82009; 82550; 82803; 82962; 82977; 83036; 83690; 83880; 84145; 84484; 85025; 85378; 86140; 87486; 87522; 87581; 87633; 87806; 92526; 92610; 93005; 93970; 94640; 94664; 96372; 96374; 96375; 99285; J1650; J1815; J2270; J2543; J3411; J7613; J7626

== ENCOUNTER 2024-11-14 14:33 | Emergency (ER) | payer MEDICAID, SELFPAY ==
[2024-11-14] VITALS (17 sets, daily range): BP systolic 148–173; BP diastolic 89–113; PULSE 109–126; RESP 17–18; TEMP 36.6; O2SAT 91–99; BMI 28.8
--- NOTE | 2024-11-14 15:00 | CTR_ITS ---
PROCEDURE INFORMATION: Exam: CT Chest With Contrast; Diagnostic Exam date and time: 11/14/2024 4:46 PM Age: 64 years old Clinical indication: Other: Lbp; On breathing; Back pain; ETOH wothdrawal TECHNIQUE: Imaging protocol: Diagnostic computed tomography of the chest with contrast. Radiation optimization: All CT scans at this facility use at least one of these dose optimization techniques: automated exposure control; mA and/or kV adjustment per patient size (includes targeted exams where dose is matched to clinical indication); or iterative reconstruction. Contrast material: [id number]; Contrast volume: 100 ml; Contrast route: INTRAVENOUS (IV); COMPARISON: CT angio chest PE protcl [id number] 10/20/2024 4:04 AM RADIATION DOSE METRICS: Total DLP (mGy-cm): 1136.38 FINDINGS: Lungs: Moderate centrilobular emphysema. Mild scarring and atelectasis in both lungs. There is no consolidation. Pleural spaces: There is no pleural effusion or pneumothorax. Heart: Heart size is normal. There is left ventricular apical myocardial thinning suggesting sequelae of remote infarction. There is no pericardial effusion. Lymph nodes: There is no mediastinal or hilar lymphadenopathy. Vasculature: There is mild aortic atherosclerotic disease. The central pulmonary arteries are unremarkable. Diaphragm: There is a small sliding-type hiatal hernia. Bones/joints: There is a healing mid sternal body fracture. No acute osseous findings. Soft tissues: The extrathoracic soft tissues are unremarkable. COMMENTS: The presence of pulmonary emphysema on CT is an independent risk factor for lung cancer. In the absence of a history or active diagnosis of lung cancer, it is recommended that this patient with emphysema be evaluated for enrollment in a low dose CT lung cancer screening program. PROCEDURE INFORMATION: Exam: CT Abdomen And Pelvis With Contrast Exam date and time: 11/14/2024 4:46 PM Age: 64 years old Clinical indication: Other: Lbp; On breathing; Back pain; ETOH wothdrawal TECHNIQUE: Imaging protocol: Computed tomography of the abdomen and pelvis with contrast. Radiation optimization: All CT scans at this facility use at least one of these dose optimization techniques: automated exposure control; mA and/or kV adjustment per patient size (includes targeted exams where dose is matched to clinical indication); or iterative reconstruction. Contrast material: [id number]; Contrast volume: 100 ml; Contrast route: INTRAVENOUS (IV); COMPARISON: CT abdomen pelvis con [id number] 10/20/2024 7:06 PM RADIATION DOSE METRICS: Total DLP (mGy-cm): 1136.38 FINDINGS: Liver: There is diffuse low-attenuation of the liver relative to the spleen consistent with fatty infiltration. The liver is mildly enlarged. There is no focal liver abnormality. Gallbladder and biliary ducts: The gallbladder is distended and thin walled. No gallstones are seen. There is no intrahepatic or extrahepatic bile duct dilation. Pancreas: There is moderate atrophy of the pancreas. Spleen: The spleen is unremarkable. Adrenal glands: The adrenal glands are unremarkable. Kidneys and ureters: There are simple cysts in the left kidney measuring up to 18 mm. The right kidney and ureter are unremarkable. There is no hydronephrosis or stones. Stomach and bowel: The stomach is unremarkable. The small bowel is nondilated. The colon is diffusely decompressed, limiting assessment of the wall. There is no pericolonic edema to suggest inflammation. Appendix: The appendix is not visible. Intraperitoneal space: There is no free air or significant intraperitoneal free fluid. Vasculature: The aorta is unremarkable. There is no aneurysm. 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 There is mild aortic atherosclerotic disease. The portal, splenic and superior mesenteric veins are patent. Lymph nodes: There is no lymphadenopathy in the retroperitoneum, mesentery, pelvis or inguinal regions. Urinary bladder: The urinary bladder is distended and thin walled. Reproductive: The prostate and seminal vesicles are unremarkable. Bones/joints: Lumbar spine is unremarkable. The pelvis and hips are unremarkable. Soft tissues: The abdominal wall is intact. CT/CT chest abdpel w/*[id number] IMPRESSION: 1. No acute findings. 2. Incidental findings above. IMPRESSION: 1. No acute findings. 2. Hepatic steatosis and mild hepatomegaly. 3. Distended thin-walled urinary bladder. Correlate with voiding status to exclude bladder outlet obstruction. 4. Incidental findings above. COMMENTS: Consistent with the [place] [employer] [employer]'s Incidental Findings Committee white paper (J Am Montse Radiol 2018): Any incidental renal lesion less than 1 cm or classified as too small to characterize, or any incidental cystic renal lesion characterized as simple-appearing, is likely benign. No follow-up imaging is recommended for these lesions per consensus recommendations based on imaging criteria.
--- NOTE | 2024-11-14 15:03 | ED_ITS ---
HPI - Fall 2 General: Chief Complaint: Fall Stated Complaint: back pain Time Seen by Provider: 11/14/24 14:42 Source: patient Mode of arrival: EMS Limitations: no limitations History of Present Illness: This patient was transported to the [facility] by EMS. The patient apparently has been at more than emergency facilities for for 5 visits over the past week. He relates to me that he had a fall approximately 5 days ago that sounds like he perhaps may have been a syncopal fall. He states he fell and woke up on the floor. He states that he may have passed out. He denies any history of concomitant chest pain palpitations arrhythmias that preceded the fall. He is a heavy alcohol user and drinks every day which has increased since his the summer 2023. He also has a history of oxygen dependent COPD and is currently a tobacco user. He complains of left flank pain which is worse with movement etc. He states he had some x-rays done at other facilities and was told that he should take Tylenol for his discomfort. He denies any blood in his urine, blood in his stools etc. He states he has been faithful to his insulin as he is an insulin dependent diabetic but has not eaten well today. complaint: fall Fall from: standing Fall witnessed: no Place fall occurred: home Associated symptoms-after fall: Denies abdominal pain, chest pain, headache(s) or vertigo Related Data Home Medications ?Medication ?Instructions ?Recorded ?Confirmed amlodipine 10 mg tablet 10 mg PO DAILY 06/14/2310/08 [id number]-ntcpqaaleqrej-irjxjzuu 250 1 tab PO Q6H PRN He adache 06/14/23 10/18/24 mg-250 mg-65 mg tablet (Excedrin Migraine) multivitamin 1 tab PO DAILY 06/14/2310/08 amitriptyline 75 mg tablet 75 mg PO BEDTIME 10/18/24 0 10/18/24 tamsulosin 0.4 mg capsule 0.4 mg PO QPM 10/18/2410/18 Previous Rx's ?Medication ?Instructions ?Recorded albuterol sulfate 90 mcg/actuation 2 inh inhalation Q4 H PRN shortness 01/20/24 aerosol inhaler of breath or wheezing #6.7 g leonora pantoprazole 40 mg tablet,delayed 40 mg PO DAILY #60 t abs 05/25/24 release (Protonix) carbidopa 10 mg-levodopa 100 mg 1 tab PO QID 30 days # 120 tabs 10/24/24 tablet escitalopram oxalate 10 mg tablet 10 mg PO DAILY 30 da ys #30 tabs 10/24/24 folic acid 1 mg tablet 1 mg PO DAILY 30 days #30 ta bs 10/24/24 gabapentin 400 mg capsule 400 mg PO TID 30 days #90 ca ps 10/24/24 insulin aspart U-100 100 unit/mL See Rx Instructions . Route 10/24/24 (3 mL) subcutaneous pen (Novolog .COMPLEX #15 mL FlexPen U-100 Insulin aspart) insulin glargine 100 unit/mL (3 10 unit (0.1 mL) SUBCU T BID 30 10/24/24 mL) subcutaneous pen (Basaglar days #15 mL KwikPen U-100 Insulin) starch (thickening) (Thick and 1 ea PO TIDWMEAL 30 day s #2,724 10/24/24 Easy oral powder) grams thiamine mononitrate (vit B1) 100 100 mg PO DAILY 30 d ays #30 tabs 10/24/24 mg tablet (Vitamin B-1 (mononitrate)) lidocaine 5 % topical patch 1 patch topical DAILY #15 ea 11/14/24 (Lidoderm) Allergies Allergy/AdvReac Type Severity Reaction Status Date / Time diphenhydramine (From Allergy Unknown Unknown Verified 01/17/23 18:45 Benadryl) menthol Allergy Unknown Unknown Verified 01/17/23 18:45 Review of Systems 2 Const: Denies: fever(s) or chills Eyes: Denies: change in vision ENMT: Denies: throat pain, odynophagia, nasal discharge or nasal congestion Card: Denies: chest pain, palpitations or irregular heart rhythm Resp: Reports: dyspnea (Chronic) and non-productive cough GI: Denies: abdominal pain, nausea or vomiting : Reports: flank pain; Denies: difficulty urinating, dysuria or urinary frequency Musc: Reports: back pain and extremity pain (Left great toe) Neuro: Denies: headache(s), numbness in extremities, weakness in extremities, dizziness or vertigo Endo: Denies: polyuria or polydipsia Abdirashid/Lymph: Denies: easy bruising or easy bleeding PFSH ED 2 PFSH: Medical History COPD (chronic obstructive pulmonary disease) Methamphetamine use disorder, severe Surgical History History of appendectomy Social History Alcohol intake: current Substance/Drug Use: never Physical Exam 2 Narrative: EXAM NARRATIVE: Patient is alert speaks with somewhat of a affected voice but once you adjust to his speech he is understandable and fluent Course 2 Reevaluation(s): Reevaluation #1: Discussed current findings with the patient. His CT scans are reassuring. Discussed options to include observation versus discharge home and his preference is to be discharged home. He still feeling pretty shaky and states he has not had a drink today. Will go ahead and give an additional dose of Ativan and reassess Time: 19:00 Vital Signs: Vital signs: Vital Signs Temperature 97.8 F 11/14/24 14:35 Pulse Rate 123 H 11/14/24 17:35 Respiratory Rate 17 11/14/24 16:42 Blood Pressure 173/109 11/14/24 17:35 Pulse Oximetry 97 11/14/24 17:35 Oxygen Delivery Me thod Nasal Cannula 11/14/24 17:35 Oxygen Flow Rate 3 11/14/24 17:35 MDM - Fall Medical Decision Making Patient had a fall as noted in the HPI. Patient is a admitted chronic alcohol user and lives alone. Been evaluated another emergency departments over the past week. On evaluation here he was noted to be alert with no signs of trauma other than ecchymosis to his left flank. No evidence of bony deformity bony tenderness etc. He was alert and can move all extremities. Imaging was obtained of the head chest abdomen and pelvis to ensure that there is no evidence of bony injury, fracture, solid organ injury, intercranial hemorrhage skull fracture etc. He was observed in the emerged part for period of time and although had increased shakiness he responded well to Ativan. He was given the options of continued observation versus discharge home which he chose the latter in light of his negative workup at this time. We discussed his alcohol use and abuse but he has no desire to change his habits at this time. He request discharge. We discussed return precautions. Lab Data I reviewed the patient's lab results. 11/14/24 16:20 11/14/24 16:20 Radiology Impressions Chest/Abdomen/Pelvis CT 11/14/24 15:00 IMPRESSION: 1. No acute findings. 2. Incidental findings above. IMPRESSION: 1. No acute findings. 2. Hepatic steatosis and mild hepatomegaly. 3. Distended thin-walled urinary bladder. Correlate with voiding status to exclude bladder outlet obstruction. 4. Incidental findings above. COMMENTS: Consistent with the [employer]'s Incidental Findings Committee white paper (J Am Montse Radiol 2018): Any incidental renal lesion less than 1 cm or classified as too small to characterize, or any incidental cystic renal lesion characterized as simple-appearing, is likely benign. No follow-up imaging is recommended for these lesions per consensus recommendations based on imaging criteria. Head CT 11/14/24 15:07 IMPRESSION: No acute intracranial abnormality. Laboratory Results WBC 7.07 10^3/uL (3.29-11.43) 11/14/24 16:20 RBC 4.91 10^6/uL (3.85-5.65) 11/14/24 16:20 Hgb 14.60 g/dL (11.27-16.99) 11/14/24 16:20 Hct 43.6 % (37-53) 11/14/24 16:20 MCV 88.8 fl (82-101) 11/14/24 16:20 MCH 29.7 pg (27-33) 11/14/24 16:20 MCHC 33.5 g/dL (30-55) 11/14/24 16:20 RDW 14.0 % (12.1-15.1) 11/14/24 16:20 Plt Count 199 10^3/cmm (157-399) 11/14/24 16:20 MPV 10.5 fL (7.4-10.4) H 11/14/24 16:20 Neut % (Auto) 73.7 % 11/14/24 16:20 Lymph % (Auto) 18.5 % 11/14/24 16:20 [place] % (Auto) 5.5 % 11/14/24 16:20 Eos % (Auto) 0.8 % 11/14/24 16:20 Baso % (Auto) 1.1 % 11/14/24 16:20 Neut # (Auto) 5.20 10^3/uL (1.8-7.7) 11/14/24 16:20 Lymph # (Auto) 1.3 10^3/uL (0.8-4.8) 11/14/24 16:20 [place] # (Auto) 0.4 10^3/uL (0.2-0.9) 11/14/24 16:20 Eos # (Auto) 0.1 10^3/uL (0.0-0.8) 11/14/24 16:20 Baso # (Auto) 0.1 10^3/uL (0.0-0.1) 11/14/24 16:20 Nucleated RBC % (auto) 0 % 11/14/24 16:20 Nucleated RBCs # 0.0 /100WBC 11/14/24 16:20 Sodium 133 mmol/L (136-145) L 11/14/24 16:20 Potassium 3.8 mmol/L (3.5-5.1) 11/14/24 16:20 Chloride 92 mmol/L (98-107) L 11/14/24 16:20 Carbon Dioxide 27 mmol/L (22-29) 11/14/24 16:20 Anion Gap 17.8 (5-19) 11/14/24 16:20 BUN 4 mg/dL (8-23) L 11/14/24 16:20 Creatinine 0.4 mg/dL (0.7-1.2) L 11/14/24 16:20 GFR Calculation 218.0 mL/min (90-130) H 11/14/24 16:20 Glucose 362 mg/dL (65-115) H 11/14/24 16:20 POC Glucose 313 mg/dL (70-110) H 11/14/24 18:15 Calculated Osmolality 288 mOsm/kg (285-295) 11/14/24 16:20 Calcium 9.0 mg/dL (8.5-10.5) 11/14/24 16:20 Magnesium 1.6 mg/dL (1.7-2.3) L 11/14/24 16:20 Total Bilirubin 1.3 mg/dL (0.15-1.2) H 11/14/24 16:20 AST 327 U/L (0-40) H 11/14/24 16:20 ALT 120 U/L (0-41) H 11/14/24 16:20 Alkaline Phosphatase 248 U/L (40-130) H 11/14/24 16:20 Total Protein 7.3 g/dL (6.6-8.7) 11/14/24 16:20 Albumin 4.2 g/dL (3.5-5.2) 11/14/24 16:20 Globulin 3.1 g/dL (1.3-4.6) 11/14/24 16:20 Ethyl Alcohol 53 mg/dL (0-10) H 11/14/24 16:20 All radiology interpretation(s) finalized by discharge EKG Data EKG 1: I personally reviewed and interpreted this EKG as follows: Interpretation: He is achy EKG was reviewed. It was consistent with sinus tachycardia with normal ME interval, QRS duration, corrected QT interval. Normal axis. No ischemic ST-T wave changes were noted. Discharge Plan Discharge Patient Disposition: Home Clinical Impression: COPD (chronic obstructive pulmonary disease), Contusion of left flank, Alcohol use disorder Condition: Stable Prescriptions: New lidocaine [Lidoderm] 5 % adhesive patch,medicated 1 patch topical DAILY Qty: 15 1RF Rx Instructions: leave on most painful area for up to 12 hrs No Action amlodipine 10 mg tablet 10 mg PO DAILY Excedrin Migraine 250-250-65 mg Tablet 1 tab PO Q6H PRN (Reason: Headache) multivitamin Tablet 1 tab PO DAILY albuterol sulfate 90 mcg/actuation HFA aerosol inhaler 2 inh INHALATION Q4H PRN (Reason: shortness of breath or wheezing) Qty: 6.7 1RF pantoprazole [Protonix] 40 mg tablet,delayed release (DR/EC) 40 mg PO DAILY Qty: 60 0RF tamsulosin 0.4 mg capsule 0.4 mg PO QPM amitriptyline 75 mg tablet 75 mg PO BEDTIME gabapentin 400 mg Capsule 400 mg PO TID 30 Days Qty: 90 0RF carbidopa-levodopa 10-100 mg Tablet 1 tab PO QID 30 Days Qty: 120 0RF folic acid 1 mg Tablet 1 mg PO DAILY 30 Days Qty: 30 0RF escitalopram oxalate 10 mg Tablet 10 mg PO DAILY 30 Days Qty: 30 0RF thiamine mononitrate (vit B1) [Vitamin B-1 (mononitrate)] 100 mg Tablet 100 mg PO DAILY 30 Days Qty: 30 0RF insulin glargine [Basaglar KwikPen U-100 Insulin] 100 unit/mL (3 mL) insulin pen 10 unit SUBCUT BID 30 Days Qty: 15 0RF insulin aspart U-100 [Novolog FlexPen U-100 Insulin] 100 unit/mL (3 mL) insulin pen See Rx Instructions .ROUTE .COMPLEX Qty: 15 0RF Rx Instructions: inject subcut, tid, after meals, based on sliding scale provided Thick and Easy Powder 1 ea PO TIDWMEAL 30 Days Qty: 2724 0RF Discharge Orders: Discharge ED (Routine); Ordered 11/14/24 Ordered By: Gerard Bennett Referrals: Katina Mata [Primary Care Provider] - Discharge Diet: Usual diet Discharge Activity: Increase activity as tolerated Patient Instructions: Opioid Safety, Pain Management Activity Restrictions/Additional Instructions: Your evaluation in the emergency department tonight did not reveal any evidence of broken bones or injury to any organs or other serious conditions this evening. You have bruised the soft tissues which will take some time to heal. We have provided a prescription for a pain patch that you may place on the area of most discomfort once daily. We also recommend that you stop drinking alcohol. He should do this gradually in your case because of your long-term alcohol use. If it anytime you develop any new or worsening symptoms you should return to the emergency department immediately. Print Language: Mongolian Coding Level of Care Code ED Lane Attendant for Marisela Mclaughlin
--- NOTE | 2024-11-14 15:07 | CTR_ITS ---
PROCEDURE INFORMATION: Exam: CT Head Without Contrast Exam date and time: 11/14/2024 4:07 PM Age: 64 years old Clinical indication: Injury or trauma; Fall; Blunt trauma (contusions or hematomas); Consciousness not specified TECHNIQUE: Imaging protocol: Computed tomography of the head without contrast. Radiation optimization: All CT scans at this facility use at least one of these dose optimization techniques: automated exposure control; mA and/or kV adjustment per patient size (includes targeted exams where dose is matched to clinical indication); or iterative reconstruction. COMPARISON: No relevant prior studies available. RADIATION DOSE METRICS: Total DLP (mGy-cm): 920.48 FINDINGS: Brain: No midline shift. Ventricles, cisterns, and sulci are normal. No mass, acute infarct, hemorrhage, or extraaxial fluid collection. Cerebral ventricles: No ventriculomegaly. Paranasal sinuses: Mild right maxillary sinus mucosal. Mastoid air cells: Visualized mastoid air cells are well aerated. Bones: Unremarkable. No acute fracture. Soft tissues: Unremarkable. CT/CT head wo con* [id number] IMPRESSION: No acute intracranial abnormality.
[2024-11-14 15:15] LABS: Glucose Point of Care 389 mg/dL (70-110)
[2024-11-14 16:39] LABS: Basophils # 0.1 10^3/uL (0.0-0.1); Basophils % 1.1 %; Eosinophils # 0.1 10^3/uL (0.0-0.8); Eosinophils % 0.8 %; Hematocrit 43.6 % (37-53); Lymphocytes # 1.3 10^3/uL (0.8-4.8); Lymphocytes % 18.5 %; Mean Corpuscular HGB Conc 33.5 g/dL (30-55); Mean Corpuscular Hemoglobin 29.7 pg (27-33); Mean Corpuscular Volume 88.8 fl (82-101); Mean Platelet Volume 10.5 fL (7.4-10.4); Monocytes # 0.4 10^3/uL (0.2-0.9); Monocytes % 5.5 %; Neutrophils % 73.7 %; Nucleated Red Blood Cells % 0 %; Platelet Count 199 10^3/cmm (157-399); Red Blood Count 4.91 10^6/uL (3.85-5.65); White Blood Count 7.07 10^3/uL (3.29-11.43)
[2024-11-14] MEDS: lactated ringers 500 ML 999 ML IV (16:41)
[2024-11-14] MEDS: fentaNYL 50 mcg/mL INJ 2mL 25 MCG IVP (16:42)
--- NOTE | 2024-11-14 16:58 | ECG_ITS ---
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
[2024-11-14 17:02] LABS: Alanine Aminotransferase 120 U/L (0-41); Albumin Level 4.2 g/dL (3.5-5.2); Alcohol Level 53 mg/dL (0-10); Alkaline Phosphatase 248 U/L (40-130); Anion Gap 17.8 (5-19); Aspartate Amino Transferase 327 U/L (0-40); Blood Urea Nitrogen 4 mg/dL (8-23); Carbon Dioxide 27 mmol/L (22-29); Chloride 92 mmol/L (98-107); Creatinine Clr Calc Pharmacy 197.8286; Globulin 3.1 g/dL (1.3-4.6); Glucose 362 mg/dL (65-115); Magnesium 1.6 mg/dL (1.7-2.3); Osmolality Calculated 288 mOsm/kg (285-295); Potassium 3.8 mmol/L (3.5-5.1); Sodium 133 mmol/L (136-145); Total Bilirubin 1.3 mg/dL (0.15-1.2); Total Protein 7.3 g/dL (6.6-8.7)
[2024-11-14] MEDS: LORazepam 2 mg/mL INJ 1 mL 1 MG IVP ×2 (17:10→20:48)
[2024-11-14] MEDS: iohexol 350 mg/mL 500 mL Btl (per mL) IV (17:41)
[2024-11-14 18:18] LABS: Glucose Point of Care 313 mg/dL (70-110)
[2024-11-14] MEDS: lidocaine 5% Patch 1 PATCH TOPICAL (22:54)
== END 2024-11-14 23:33 | disposition home or self-care (01) ==
PROVIDERS: Emergency Provider Emergency Medicine; PCP Registered Nurse
DX: J44.9 Chronic obstructive pulmonary disease, unspecified (principal); S30.1XXA Contusion of abdominal wall, initial encounter; F10.90 Alcohol use, unspecified, uncomplicated; Y90.2 Blood alcohol level of 40-59 mg/100 ml; Z79.4 Long term (current) use of insulin; W19.XXXA Unspecified fall, initial encounter
CPT/HCPCS: 36415; 36416; 70450; 71260; 74177; 80053; 80307; 82962; 83735; 85025; 93005; 96374; 96375; 96376; 99285; J2060; J3010; J7120

== ENCOUNTER 2024-11-15 12:40 | Emergency (ER) | payer MEDICAID, SELFPAY ==
[2024-11-15] VITALS (8 sets, daily range): BP systolic 133–160; BP diastolic 88–112; PULSE 107–117; RESP 16–25; TEMP 36.6; O2SAT 94–98; BMI 36.0
--- NOTE | 2024-11-15 12:50 | ECG_ITS ---
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1960 Requested By: Remy Rodriguez Order Number: [id number] Reading MD: ZOE LIRIANO Measurements Intervals [place] Rate: 113 P: 51 MS: 193 QRS: 42 QRSD: 105 T: 66 QT: 384 QTc: 527 Interpretive Statements SINUS TACHYCARDIA LOW QRS VOLTAGE IN PRECORDIAL LEADS [QRS DEFLECTION < 1.0 mV IN CHEST LEADS] POSSIBLE ANTERIOR MYOCARDIAL INFARCTION , OF INDETERMINATE AGE [30 ms Q WAVE IN V3/V4, OR R < 0.2 mV IN V4] MODERATE T-WAVE ABNORMALITY, CONSIDER LATERAL ISCHEMIA [-0.1+ mV T-WAVE IN I/aVL/V5/V6] INTERPRETATION BASED ON A DEFAULT AGE OF 40 YEARS Compared to ECG 11/14/2024 16:58:18 Myocardial infarct finding now present Possible ischemia now present T-wave abnormality still present Electronically Signed On 11-16-2024 20:58:02 NURSE ORTHOPAEDIC by ZOE LIRIANO [email or web address]
--- NOTE | 2024-11-15 13:02 | PC.NURSE ---
pt changed into green paper scrubs and all belongings removed, including pt coke soda. security notified of belongings/soda
--- NOTE | 2024-11-15 13:29 | ED.C_ITS ---
Documented by User: Remy Rodriguez DO 11/15/24 21:57 HPI - Psych 2 General: Chief Complaint: Psychiatric Symptoms Stated Complaint: MHE Time Seen by Provider: 11/15/24 12:55 History of Present Illness: Patient presents because he states he is having thoughts of just 1 antedated all. He does not have a plan. Patient reports he is just tired of it. He reports he has some chronic pain and issues. That he also has chronic alcohol use and chronic poor health. Patient reports he been seen every night for the last couple days in the ER. He does have darrius in his head from a fall about a week ago. Patient admits to frequent drinking and reports that he drank today prior to coming in. Associated symptoms: Reports depression and suicidal ideation; Deny homicidal ideation Related Data Home Medications ?Medication ?Instructions ?Recorded ?Confirmed amlodipine 10 mg tablet 10 mg PO DAILY 06/14/2306/01 amitriptyline 75 mg tablet 75 mg PO BEDTIME 10/18/24 0 11/15/24 tamsulosin 0.4 mg capsule 0.4 mg PO QPM 10/18/2411/15 insulin glargine 100 unit/mL (3 10 unit SUBCUT DAILY 0 11/15/24 11/15/24 mL) subcutaneous pen (Lantus Solostar U-100 Insulin) Previous Rx's ?Medication ?Instructions ?Recorded albuterol sulfate 90 mcg/actuation 2 inh inhalation Q4 H PRN shortness 01/20/24 aerosol inhaler of breath or wheezing #6.7 g leonora pantoprazole 40 mg tablet,delayed 40 mg PO DAILY #60 t abs 05/25/24 release (Protonix) carbidopa 10 mg-levodopa 100 mg 1 tab PO QID 30 days # 120 tabs 10/24/24 tablet escitalopram oxalate 10 mg tablet 10 mg PO DAILY 30 da ys #30 tabs 10/24/24 folic acid 1 mg tablet 1 mg PO DAILY 30 days #30 ta bs 10/24/24 gabapentin 400 mg capsule 400 mg PO TID 30 days #90 ca ps 10/24/24 insulin aspart U-100 100 unit/mL See Rx Instructions . Route 10/24/24 (3 mL) subcutaneous pen (Novolog .COMPLEX #15 mL FlexPen U-100 Insulin aspart) insulin glargine 100 unit/mL (3 10 unit (0.1 mL) SUBCU T BID 30 10/24/24 mL) subcutaneous pen (Basaglar days #15 mL KwikPen U-100 Insulin) Allergies Allergy/AdvReac Type Severity Reaction Status Date / Time diphenhydramine (From Allergy Unknown Unknown Verified 01/17/23 18:45 Benadryl) menthol Allergy Unknown Unknown Verified 01/17/23 18:45 Review of Systems 2 Const: Reports: body aches; Denies: fever(s) or chills Card: Denies: chest pain Resp: Reports: other (Chronic shortness of breath on 3 L baseline) Psych: Reports: depression, hopelessness and suicidal ideation; Denies: homicidal ideation PFSH ED 2 PFSH: Medical History COPD (chronic obstructive pulmonary disease) Methamphetamine use disorder, severe Surgical History History of appendectomy Social History Alcohol intake: current Substance/Drug Use: never Physical Exam 2 Const: COMMON NORMALS: patient oriented x3 GENERAL APPEARANCE: disheveled and other (Chronically ill) NUTRITIONAL APPEARANCE: overweight Resp: COMMON NORMALS: normal respiratory effort and No use of accessory muscles Cardio: COMMON NORMALS: regular rhythm RATE: tachycardic RHYTHM: regular rhythm Neuro: COMMON NORMALS: patient oriented x3 and no focal motor deficits Psych: ATTITUDE: Yes Withdrawn affect present MOOD & AFFECT: Yes depressed mood THOUGHT CONTENT: Yes Suicidality present ATTENTION/CONCENTRATION: Yes attention grossly intact Course 2 Vital Signs: Vital signs: Vital Signs Temperature 97.8 F 11/15/24 12:56 Pulse Rate 115 H 11/16/24 00:22 Respiratory Rate 16 11/15/24 16:00 Blood Pressure 129/95 11/16/24 03:15 Pulse Oximetry 97 11/16/24 03:30 Oxygen Delivery Me thod Room Air 11/16/24 00:22 Oxygen Flow Rate 3 11/15/24 16:00 MDM - Psych Medical Decision Making Patient's diagnostic studies are reviewed show no significant acute changes from his baseline. He does have mild decrease in his sodium was given a banana bag. Patient is requesting voluntary transfer [facility] to [facility]. He does state he is suicidal ideations. Patient transferred at shift change to Dr. Anders with attempting to find placement. Medical Records I reviewed the patient's medical records. Lab Data 11/15/24 14:05 11/15/24 14:05 Laboratory Results WBC 6.28 10^3/uL (3.29-11.43) 11/15/24 14:05 RBC 5.04 10^6/uL (3.85-5.65) 11/15/24 14:05 Hgb 15.00 g/dL (11.27-16.99) 11/15/24 14:05 Hct 45.1 % (37-53) 11/15/24 14:05 MCV 89.5 fl (82-101) 11/15/24 14:05 MCH 29.8 pg (27-33) 11/15/24 14:05 MCHC 33.3 g/dL (30-55) 11/15/24 14:05 RDW 14.0 % (12.1-15.1) 11/15/24 14:05 Plt Count 160 10^3/cmm (157-399) 11/15/24 14:05 MPV 11.1 fL (7.4-10.4) H 11/15/24 14:05 Neut % (Auto) 69.9 % 11/15/24 14:05 Lymph % (Auto) 20.1 % 11/15/24 14:05 Sully % (Auto) 7.6 % 11/15/24 14:05 Eos % (Auto) 1.3 % 11/15/24 14:05 Baso % (Auto) 0.8 % 11/15/24 14:05 Neut # (Auto) 4.39 10^3/uL (1.8-7.7) 11/15/24 14:05 Lymph # (Auto) 1.3 10^3/uL (0.8-4.8) 11/15/24 14:05 Sully # (Auto) 0.5 10^3/uL (0.2-0.9) 11/15/24 14:05 Eos # (Auto) 0.1 10^3/uL (0.0-0.8) 11/15/24 14:05 Baso # (Auto) 0.1 10^3/uL (0.0-0.1) 11/15/24 14:05 Nucleated RBC % (auto) 0 % 11/15/24 14:05 Nucleated RBCs # 0.0 /100WBC 11/15/24 14:05 Sodium 130 mmol/L (136-145) L 11/15/24 14:05 Potassium 3.3 mmol/L (3.5-5.1) L 11/15/24 14:05 Chloride 87 mmol/L (98-107) L 11/15/24 14:05 Carbon Dioxide 24 mmol/L (22-29) 11/15/24 14:05 Anion Gap 22.3 (5-19) H 11/15/24 14:05 BUN 3 mg/dL (8-23) L 11/15/24 14:05 Creatinine 0.5 mg/dL (0.7-1.2) L 11/15/24 14:05 GFR Calculation 168.5 mL/min (90-130) H 11/15/24 14:05 Glucose 409 mg/dL (65-115) H 11/15/24 14:05 POC Glucose 233 mg/dL (70-110) H 11/16/24 00:25 Calculated Osmolality 284 mOsm/kg (285-295) L 11/15/24 14:05 Calcium 8.7 mg/dL (8.5-10.5) 11/15/24 14:05 Total Bilirubin 2.2 mg/dL (0.15-1.2) H 11/15/24 14:05 AST 245 U/L (0-40) H 11/15/24 14:05 ALT 106 U/L (0-41) H 11/15/24 14:05 Alkaline Phosphatase 243 U/L (40-130) H 11/15/24 14:05 Total Protein 7.4 g/dL (6.6-8.7) 11/15/24 14:05 Albumin 4.0 g/dL (3.5-5.2) 11/15/24 14:05 Globulin 3.4 g/dL (1.3-4.6) 11/15/24 14:05 TSH 1.58 uIU/mL (0.27-4.20) 11/15/24 14:05 Urine Color Yellow (Yellow) 11/15/24 16:28 Urine Appearance Clear (CLEAR) 11/15/24 16:28 Urine pH 7.0 (5-7) 11/15/24 16:28 Ur Specific Davin 1.031 (1.005-1.030) H 11/15/24 16:28 Urine Protein Negative (Negative) 11/15/24 16:28 Urine Glucose (UA) 2+ (Normal) H 11/15/24 16:28 Urine Ketones Negative (Negative) 11/15/24 16:28 Urine Blood Negative (Negative) 11/15/24 16:28 Urine Nitrate Negative (Negative) 11/15/24 16:28 Urine Bilirubin Negative (Negative) 11/15/24 16: Urine Urobilinogen 2.0 mg/dL (Negative) H 11/15/24 16:28 Ur Leukocyte Esterase Negative (Negative) 11/15/24 16:28 Urine RBC 0-2 /hpf (0-2) 11/15/24 16:28 Urine WBC 0-5 /hpf (0-5) 11/15/24 16:28 Ur Squamous Epith Cells 0-5 /hpf (0-5) 11/15/24 16:28 Amorphous Sediment Not Reportable 11/15/24 16:28 Urine Bacteria None seen /hpf (NONE) 11/15/24 16:28 Hyaline Casts 0-4 /lpf H 11/15/24 16:28 Salicylates 1.5 mg/dL (3-10) L 11/15/24 14:05 Urine Opiates Screen Negative ng/mL (Negative) 11/15/24 16:23 Acetaminophen < 5.0 ug/mL (10-30) L 11/15/24 14:05 Ur Barbiturates Screen Negative ng/mL (Negative) 11/15/24 16:23 Ur Phencyclidine Scrn Negative ng/mL (Negative) 11/15/24 16:23 Ur Amphetamines Screen Negative ng/mL (Negative) 11/15/24 16:23 U Benzodiazepines Scrn Positive ng/mL (Negative) H 11/15/24 16:23 Urine Cocaine Screen Negative ng/mL (Negative) 11/15/24 16:23 U Marijuana (THC) Screen Negative ng/mL (Negative) 11/15/24 16:23 Ethyl Alcohol 53 mg/dL (0-10) H 11/15/24 14:05 Coronavirus (PCR) Negative (Negative) 11/15/24 17:55 Influenza A (PCR) Negative (Negative) 11/15/24 17:55 Influenza Type B (PCR) Negative (Negative) 11/15/24 17:55 RSV (PCR) Negative (Negative) 11/15/24 17:55 No radiology studies performed this visit Discharge Plan Discharge Patient Disposition: Xfer Psychiatric Hosp Clinical Impression: Suicidal ideation Condition: Stable Referrals: Katina Mata [Primary Care Provider] - Print Language: [place] Coding Level of Care Code ED Centrifugal Spinner for Chg Fwd Documented by User: Brody Anders DO 11/16/24 04:19 HPI - Psych 2 General: Chief Complaint: Psychiatric Symptoms Stated Complaint: MHE Time Seen by Provider: 11/15/24 12:55 Related Data Home Medications ?Medication ?Instructions ?Recorded ?Confirmed amlodipine 10 mg tablet 10 mg PO DAILY 06/14/2306/01 amitriptyline 75 mg tablet 75 mg PO BEDTIME 10/18/24 0 11/15/24 tamsulosin 0.4 mg capsule 0.4 mg PO QPM 10/18/2411/15 insulin glargine 100 unit/mL (3 10 unit SUBCUT DAILY 0 11/15/24 11/15/24 mL) subcutaneous pen (Lantus Solostar U-100 Insulin) Previous Rx's ?Medication ?Instructions ?Recorded albuterol sulfate 90 mcg/actuation 2 inh inhalation Q4 H PRN shortness 01/20/24 aerosol inhaler of breath or wheezing #6.7 g leonora pantoprazole 40 mg tablet,delayed 40 mg PO DAILY #60 t abs 05/25/24 release (Protonix) carbidopa 10 mg-levodopa 100 mg 1 tab PO QID 30 days # 120 tabs 10/24/24 tablet escitalopram oxalate 10 mg tablet 10 mg PO DAILY 30 da ys #30 tabs 10/24/24 folic acid 1 mg tablet 1 mg PO DAILY 30 days #30 ta bs 01/17/25 gabapentin 400 mg capsule 400 mg PO TID 30 days #90 ca ps 10/24/24 insulin aspart U-100 100 unit/mL See Rx Instructions . Route 10/24/24 (3 mL) subcutaneous pen (Novolog .COMPLEX #15 mL FlexPen U-100 Insulin aspart) insulin glargine 100 unit/mL (3 10 unit (0.1 mL) SUBCU T BID 30 10/24/24 mL) subcutaneous pen (Basaglar days #15 mL KwikPen U-100 Insulin) Allergies Allergy/AdvReac Type Severity Reaction Status Date / Time diphenhydramine (From Allergy Unknown Unknown Verified 01/17/23 18:45 Benadryl) menthol Allergy Unknown Unknown Verified 01/17/23 18:45 PFS ED 2 PFSH: Medical History COPD (chronic obstructive pulmonary disease) Methamphetamine use disorder, severe Surgical History History of appendectomy Social History Alcohol intake: current Substance/Drug Use: never Course 2 Vital Signs: Vital signs: Vital Signs Temperature 97.8 F 11/15/24 12:56 Pulse Rate 115 H 11/16/24 00:22 Respiratory Rate 16 11/15/24 16:00 Blood Pressure 129/95 11/16/24 03:15 Pulse Oximetry 97 11/16/24 03:30 Oxygen Delivery Me thod Room Air 11/16/24 00:22 Oxygen Flow Rate 3 11/15/24 16:00 [facility] - Psych Medical Decision Making Patient's diagnostic studies are reviewed show no significant acute changes from his baseline. He does have mild decrease in his sodium was given a banana bag. Patient is requesting voluntary transfer likely to [facility] psych. He does state he is suicidal ideations. Patient transferred at shift change to Dr. Anders with attempting to find placement. Patient remains medically stable. Bed found at [place] as [facility] of [facility]. Patient is going by EMS transfer. Lab Data 11/15/24 14:05 11/15/24 14:05 Laboratory Results WBC 6.28 10^3/uL (3.29-11.43) 11/15/24 14:05 RBC 5.04 10^6/uL (3.85-5.65) 11/15/24 14:05 Hgb 15.00 g/dL (11.27-16.99) 11/15/24 14:05 Hct 45.1 % (37-53) 11/15/24 14:05 MCV 89.5 fl (82-101) 11/15/24 14:05 MCH 29.8 pg (27-33) 11/15/24 14:05 MCHC 33.3 g/dL (30-55) 11/15/24 14:05 RDW 14.0 % (12.1-15.1) 11/15/24 14:05 Plt Count 160 10^3/cmm (157-399) 11/15/24 14:05 MPV 11.1 fL (7.4-10.4) H 11/15/24 14:05 Neut % (Auto) 69.9 % 11/15/24 14:05 Lymph % (Auto) 20.1 % 11/15/24 14:05 Sully % (Auto) 7.6 % 11/15/24 14:05 Eos % (Auto) 1.3 % 11/15/24 14:05 Baso % (Auto) 0.8 % 11/15/24 14:05 Neut # (Auto) 4.39 10^3/uL (1.8-7.7) 11/15/24 14:05 Lymph # (Auto) 1.3 10^3/uL (0.8-4.8) 11/15/24 14:05 Sully # (Auto) 0.5 10^3/uL (0.2-0.9) 11/15/24 14:05 Eos # (Auto) 0.1 10^3/uL (0.0-0.8) 11/15/24 14:05 Baso # (Auto) 0.1 10^3/uL (0.0-0.1) 11/15/24 14:05 Nucleated RBC % (auto) 0 % 11/15/24 14:05 Nucleated RBCs # 0.0 /100WBC 11/15/24 14:05 Sodium 130 mmol/L (136-145) L 11/15/24 14:05 Potassium 3.3 mmol/L (3.5-5.1) L 11/15/24 14:05 Chloride 87 mmol/L (98-107) L 11/15/24 14:05 Carbon Dioxide 24 mmol/L (22-29) 11/15/24 14:05 Anion Gap 22.3 (5-19) H 11/15/24 14:05 BUN 3 mg/dL (8-23) L 11/15/24 14:05 Creatinine 0.5 mg/dL (0.7-1.2) L 11/15/24 14:05 GFR Calculation 168.5 mL/min (90-130) H 11/15/24 14:05 Glucose 409 mg/dL (65-115) H 11/15/24 14:05 POC Glucose 233 mg/dL (70-110) H 11/16/24 00:25 Calculated Osmolality 284 mOsm/kg (285-295) L 11/15/24 14:05 Calcium 8.7 mg/dL (8.5-10.5) 11/15/24 14:05 Total Bilirubin 2.2 mg/dL (0.15-1.2) H 11/15/24 14:05 AST 245 U/L (0-40) H 11/15/24 14:05 ALT 106 U/L (0-41) H 11/15/24 14:05 Alkaline Phosphatase 243 U/L (40-130) H 11/15/24 14:05 Total Protein 7.4 g/dL (6.6-8.7) 11/15/24 14:05 Albumin 4.0 g/dL (3.5-5.2) 11/15/24 14:05 Globulin 3.4 g/dL (1.3-4.6) 11/15/24 14:05 TSH 1.58 uIU/mL (0.27-4.20) 11/15/24 14:05 Urine Color Yellow (Yellow) 11/15/24 16: Urine Appearance Clear (CLEAR) 11/15/24 16: Urine pH 7.0 (5-7) 11/15/24 16:28 Ur Specific Davin 1.031 (1.005-1.030) H 11/15/24 16:28 Urine Protein Negative (Negative) 11/15/24 16: Urine Glucose (UA) 2+ (Normal) H 11/15/24 16:28 Urine Ketones Negative (Negative) 11/15/24 16:28 Urine Blood Negative (Negative) 11/15/24 16:28 Urine Nitrate Negative (Negative) 11/15/24 16:28 Urine Bilirubin Negative (Negative) 11/15/24 16:28 Urine Urobilinogen 2.0 mg/dL (Negative) H 11/15/24 16:28 Ur Leukocyte Esterase Negative (Negative) 11/15/24 16:28 Urine RBC 0-2 /hpf (0-2) 11/15/24 16:28 Urine WBC 0-5 /hpf (0-5) 11/15/24 16:28 Ur Squamous Epith Cells 0-5 /hpf (0-5) 11/15/24 16:28 Amorphous Sediment Not Reportable 11/15/24 16:28 Urine Bacteria None seen /hpf (NONE) 11/15/24 16:28 Hyaline Casts 0-4 /lpf H 11/15/24 16:28 Salicylates 1.5 mg/dL (3-10) L 11/15/24 14:05 Urine Opiates Screen Negative ng/mL (Negative) 11/15/24 16:23 Acetaminophen < 5.0 ug/mL (10-30) L 11/15/24 14:05 Ur Barbiturates Screen Negative ng/mL (Negative) 11/15/24 16:23 Ur Phencyclidine Scrn Negative ng/mL (Negative) 11/15/24 16:23 Ur Amphetamines Screen Negative ng/mL (Negative) 11/15/24 16:23 U Benzodiazepines Scrn Positive ng/mL (Negative) H 11/15/24 16:23 Urine Cocaine Screen Negative ng/mL (Negative) 11/15/24 16:23 U Marijuana (THC) Screen Negative ng/mL (Negative) 11/15/24 16:23 Ethyl Alcohol 53 mg/dL (0-10) H 11/15/24 14:05 Coronavirus (PCR) Negative (Negative) 11/15/24 17:55 Influenza A (PCR) Negative (Negative) 11/15/24 17:55 Influenza Type B (PCR) Negative (Negative) 11/15/24 17:55 RSV (PCR) Negative (Negative) 11/15/24 17:55 Discharge Plan Discharge Patient Disposition: Xfer Psychiatric Hosp Clinical Impression: Suicidal ideation Condition: Stable Referrals: Katina Mata [Primary Care Provider] - Print Language: [place] Coding Level of Care Code ED Centrifugal Spinner for Marisela Mclaughlin
[2024-11-15 14:11] LABS: Basophils # 0.1 10^3/uL (0.0-0.1); Basophils % 0.8 %; Eosinophils # 0.1 10^3/uL (0.0-0.8); Eosinophils % 1.3 %; Hematocrit 45.1 % (37-53); Lymphocytes # 1.3 10^3/uL (0.8-4.8); Lymphocytes % 20.1 %; Mean Corpuscular HGB Conc 33.3 g/dL (30-55); Mean Corpuscular Hemoglobin 29.8 pg (27-33); Mean Corpuscular Volume 89.5 fl (82-101); Mean Platelet Volume 11.1 fL (7.4-10.4); Monocytes # 0.5 10^3/uL (0.2-0.9); Monocytes % 7.6 %; Neutrophils # 4.39 10^3/uL (1.8-7.7); Neutrophils % 69.9 %; Nucleated Red Blood Cells % 0 %; Platelet Count 160 10^3/cmm (157-399); Red Blood Count 5.04 10^6/uL (3.85-5.65); White Blood Count 6.28 10^3/uL (3.29-11.43)
[2024-11-15 14:16] LABS: Glucose Point of Care 388 mg/dL (70-110)
[2024-11-15 14:28] LABS: Alanine Aminotransferase 106 U/L (0-41); Alcohol Level 53 mg/dL (0-10); Alkaline Phosphatase 243 U/L (40-130); Aspartate Amino Transferase 245 U/L (0-40); Blood Urea Nitrogen 3 mg/dL (8-23); Calcium 8.7 mg/dL (8.5-10.5); Carbon Dioxide 24 mmol/L (22-29); Chloride 87 mmol/L (98-107); Creatinine Clr Calc Pharmacy 176.3459; Globulin 3.4 g/dL (1.3-4.6); Glomerular Filtration Rate 168.5 mL/min (90-130); Glucose 409 mg/dL (65-115); Osmolality Calculated 284 mOsm/kg (285-295); Salicylate 1.5 mg/dL (3-10); Sodium 130 mmol/L (136-145); Total Bilirubin 2.2 mg/dL (0.15-1.2); Total Protein 7.4 g/dL (6.6-8.7)
[2024-11-15 14:31] LABS: Acetaminophen < 5.0 ug/mL (10-30); Anion Gap 22.3 (5-19); Potassium 3.3 mmol/L (3.5-5.1)
[2024-11-15] MEDS: folic acid 1 MG, multivitamin inj 10 ML, thiamine 100 MG in sodium chloride 0.9% 1,000 ML 252.8 MG IV (16:12)
[2024-11-15 16:39] LABS: Bilirubin Urine Negative (Negative); Blood Urine Negative (Negative); Glucose Urine UA 2+ (Normal); Ketones Urine Negative (Negative); Leukocyte Esterase Urine Negative (Negative); Nitrate Urine Negative (Negative); Protein Urine Negative (Negative); Urine Appearance Clear (CLEAR); Urine Color Yellow (Yellow)
[2024-11-15 16:41] LABS: Add Urine Microscopic? YES; Bacteria Urine None Seen /hpf; Hyaline Casts Urine 0-4 /lpf; RBC Urine 0-2 /hpf (0-2); Squamous Epithelial Cell Urine 0-5 /hpf (0-5); WBC Urine 0-5 /hpf (0-5)
[2024-11-15 16:42] LABS: Specific Gravity, Urine 1.031 (1.005-1.030)
[2024-11-15 16:46] LABS: Amphetamines Screen Urine Negative (Negative); Barbiturates Screen Urine Negative (Negative); Benzodiazepines Screen Urine Positive (Negative); Cocaine Screen Urine Negative (Negative); Opiate Screen Urine Negative (Negative); PCP Screen Urine Negative (Negative); THC Screen Urine Negative (Negative)
[2024-11-15] MEDS: hyDROXYzine 25 mg Capsule PO (17:01)
[2024-11-15 18:04] LABS: Thyroid Stimulating Hormone 1.58 uIU/mL (0.27-4.20)
[2024-11-15 18:40] LABS: Covid PCR NEGATIVE (Negative); Influenza A NEGATIVE (Negative); Influenza B NEGATIVE (Negative); Respiratory Syncytial Virus Ce NEGATIVE (Negative)
[2024-11-15] MEDS: chlordiazePOXIDE 25 mg Capsule PO (20:33)
[2024-11-16] VITALS (16 sets, daily range): BP systolic 108–140; BP diastolic 78–101; PULSE 105–123; RESP 18; O2SAT 95–99
[2024-11-16] MEDS: ibuprofen 600 mg Tablet PO (00:22)
[2024-11-16] MEDS: insulin lispro 100 unit/1 mL SUBCUT (00:30)
[2024-11-16 00:33] LABS: Glucose Point of Care 233 mg/dL (70-110)
[2024-11-16] MEDS: lidocaine 5% Patch 1 PATCH TOPICAL (02:10)
[2024-11-16] MEDS: chlordiazePOXIDE 25 mg Capsule PO (03:46)
== END 2024-11-16 04:35 ==
PROVIDERS: Emergency Provider Student in an Organized Health Care Education/Training Program; PCP Registered Nurse
DX: R45.851 Suicidal ideations (principal); Z11.52 Encounter for screening for COVID-19; J44.9 Chronic obstructive pulmonary disease, unspecified
CPT/HCPCS: 36416; 80053; 80306; 80307; 81001; 82962; 84443; 85025; 87637; 93005; 96360; 96361; 96372; 99285; J1815; J3411; J3490; J7030

== ENCOUNTER → 2024-11-24 14:43 | Outpatient (BNVA) | payer MEDICAID, SELFPAY | PROVIDERS: PCP Registered Nurse; Visit Provider Podiatrist Foot & Ankle Surgery | DX: M79.672 Pain in left foot (principal); S92.912A Unspecified fracture of left toe(s), initial encounter for closed fracture; W20.8XXA Other cause of strike by thrown, projected or falling object, initial encounter | CPT/HCPCS: 73630; 99204 ==